=== PATIENT | male | born 1950 | race Hispanic/Latino ===

== ENCOUNTER 2017-07-27 13:16 | Emergency (ER) | payer BC, MEDICARE ==
[2017-07-27] MEDS ORDERED: Adacel (T-DAP) 0.5 ML VIAL ONE (13:49)
--- NOTE | 2017-07-27 14:36 | RAD ---
RIGHT WRIST THREE VIEWS: 07/27/17 HISTORY: 67-year-old male with right wrist pain following an injury, fall coming out of [place]. There is heterogeneous bone demineralization. There appears to be minimal soft tissue swelling. Ther e is a subtle linear lucency noted in the triquetrum bone. I feel this is probably just some trabecu lar irregularity, although if the patient is point tender over this region, the possibility of a ethan rline nondisplaced fracture cannot be excluded. IMPRESSION: Minimal soft tissue swelling with some bone demineralization and some degenerative and osteoarthrosi s changes. Faint linear lucency seen vertically in the triquetrum bone on one view only. I favor thi s to be a vascular groove or some trabecular irregularity and not a fracture, although if the patien t is point tenderness to this region and has persistent or worsening pain, a followup CT or MRI stud y might give some additional information. POS: [facility]
--- NOTE | 2017-07-27 14:57 | CT ---
BRAIN CT WITHOUT IV CONTRAST: 07/27/17 HISTORY: 67-year-old male with ESRD, diabetes mellitus, congestive heart failure, hypertension, fell on this face. There is left frontal soft tissue scalp hematoma. No focal mass or midline shift. No intra or extra- axial hemorrhage. The sinuses and mastoids are clear. IMPRESSION: No acute intracranial process. Left frontal scalp hematoma. Benign arachnoid granuloma changes withi n the occiput. POS: [facility]
--- NOTE | 2017-07-27 14:59 | CT ---
FACIAL BONE CT SCAN WITHOUT IV CONTRAST: 07/27/17 HISTORY: Facial injury following trauma. There is left periorbital and supraorbital and left frontal scalp swelling. No evidence for acute or bital fracture. The zygomatic arches, mandible and face appear intact. IMPRESSION: Prominent left facial periorbital and supraorbital and left frontal soft tissue swelling. No facial bone fracture or dislocation. POS: [facility]
[2017-07-27] MEDS ORDERED: Ketorolac Tromethamine 30 MG/ML VIAL ONE (15:50)
== END 2017-07-27 16:25 | disposition home or self-care (01) ==
LOC: ERS 13:16
DX: S00.03XA Contusion of scalp, initial encounter (principal); S00.81XA Abrasion of other part of head, initial encounter; M25.531 Pain in right wrist; I13.2 Hypertensive heart and chronic kidney disease with heart failure and with stage 5 chronic kidney disease, or end stage renal disease; E11.22 Type 2 diabetes mellitus with diabetic chronic kidney disease; N18.6 End stage renal disease; I50.9 Heart failure, unspecified; Z99.2 Dependence on renal dialysis; Z79.4 Long term (current) use of insulin; Z79.82 Long term (current) use of aspirin; Z79.899 Other long term (current) drug therapy; W01.0XXA Fall on same level from slipping, tripping and stumbling without subsequent striking against object, initial encounter; Y93.01 Activity, walking, marching and hiking; Y92.512 Supermarket, store or market as the place of occurrence of the external cause
CPT/HCPCS: 70450; 70486; 90471; 90715; 96374; J1885

== ENCOUNTER 2017-08-26 09:57 | Observation (INO) | payer MEDICARE, BC ==
--- NOTE | 2017-08-26 11:44 | RAD ---
TWO VIEWS OF THE CHEST: HISTORY: Shortness of breath for months. COMPARISON: 07/19/2016 FINDINGS: Two views of the chest show normal sized cardiomediastinal silhouette. There is no evidence of consol idation, mass, or pleural effusion. The bones are unremarkable. IMPRESSION: No evidence of acute cardiopulmonary disease. POS: [facility]
[2017-08-26 12:56] LABS: #Basophils 0.1 thou/uL (0.0-0.2); #Eosinphils 0.2 thou/uL (0.0-0.7); #Lymphocytes 1.2 thou/uL (1.20-3.40); #Monocytes 0.3 thou/uL (0.11-0.59); #Neutrophils 3.6 thou/uL (1.40-6.50); %Lymphocytes 21.6 % (21.0-51.0); %Monocytes 5.3 % (0.0-10.0); Hematocrit 28.6 % (42.0-52.0); Mean Platelet Volume 7.3 fL (7.4-10.4); Red Blood Cell (RBC) Count 2.87 mill/uL (4.70-6.10); White Blood Cell (WBC) Count 5.3 thou/uL (4.8-10.8)
[2017-08-26 13:19] LABS: ALT (SGPT) 18 U/L (8-55); AST (SGOT) 16 U/L (5-34); Alkaline Phosphatase 116 U/L (40-150); Anion Gap 14 mmol/L (10-20); BUN (Urea Nitrogen) 26 mg/dL (8.4-25.7); Bilirubin, Total 0.8 mg/dL (0.2-1.2); Calc. Creatinine Clearance 0 mL/min (70-130); Calcium 8.2 mg/dL (7.8-10.44); Carbon Dioxide 30 mmol/L (23-31); Chloride 97 mmol/L (98-107); Estimated GFR-MDRD 14; Globulin 3.3 g/dL (2.4-3.5); Lipase 113 U/L (8-78)
[2017-08-26 13:51] LABS: Bilirubin Negative (Negative); Blood, Urine Small (Negative); Glucose, Urine (Dipstick) 250 mg/dL (Negative); Ketone, Urine Negative (Negative); Nitrite Negative (Negative); Protein, Urine (Dipstick) 300 mg/dL (Neg-Trace); Urobilinogen 0.2 mg/dL (0.2-1.0)
[2017-08-26 13:56] LABS: Bacteria/HPF 3+ HPF (None Seen); Hyaline Casts/LPF 0-3 HYALINE CAST LPF (0-3 Hyaline); RBC/HPF 0-3 HPF (0-3); Squamous Epithelial 0-3 HPF (0-3); WBC/HPF 21-50 HPF (0-3)
[2017-08-26 14:03] LABS: Lactic Acid - Sepsis 2.2 mmol/L (0.5-2.2)
[2017-08-26 14:10] LABS: Yeast-All Forms None Seen HPF (None Seen)
[2017-08-26] MEDS ORDERED: HumaLOG 300 UNITS/3 ML VIAL SC PRN (16:30)
[2017-08-26] MEDS ORDERED: Dextrose 50% Abboject 50 ML SYRINGE SLOW IVP PRN (16:30)
[2017-08-26] MEDS ORDERED: Dextrose 5% in Water 1,000 ML IV PRN (16:30)
--- NOTE | 2017-08-26 17:01 | HP ---
PRIMARY CARE PROVIDER: Dr. Gutierrez. HUMAN RESOURCES ASSISTANT MANAGER: Dr. Peguero. Referred to the [facility] by [facility]. HISTORY OF PRESENT ILLNESS: Patient was at hemodialysis this morning, he got lightheaded, started mustafa ving cramps in his legs and his chest, noted to have a low blood pressure of about 80 systolic, was s ent to the emergency room, he complains as he feels weak. PAST MEDICAL HISTORY: End-stage renal disease, on hemodialysis for 2 years; hypertension; diabetes m ellitus, type 2, insulin-dependent; coronary artery disease post PCI in 2011; dyslipidemia. CURRENT MEDICATIONS: Lantus 22 units subcu twice a day, Coreg 25 mg twice a day, amlodipine 10 mg a day, Januvia 100 mg a day, losartan 100 mg a day, Zocor 10 mg a day, aspirin 81 mg a day, terazosin 1 0 mg a day. ALLERGIES: GUAIFENESIN. PAST SURGICAL HISTORY: Radical prostatectomy for cancer in 2013. FAMILY HISTORY: No end-stage renal disease, no diabetes, no coronary artery disease. He has hyperte nsion in 3 brothers. SOCIAL HISTORY: , no tobacco, no alcohol. CODE STATUS: FULL CODE status. at bedside. REVIEW OF SYSTEMS: General: See present illness. No fainting. No headache. No fever or chills. Eyes: No double vision, blurred vision. No flashing lights. Ears, Nose, and Throat: No ear pain o r drainage. No nasal bleeding. No trouble swallowing. Cardiac: He occasionally has chest tightnes s in the morning before hemodialysis. He has occasional orthopnea. He has to sit up to breathe. Oc casional paroxysmal nocturnal dyspnea. Respirations: He has had a dry cough for 2 years. He has be en on multiple medicines, nothing has helped. He has no history of asthma or wheezing. Gastrointest inal: No nausea, vomiting, diarrhea, abdominal pain, or melena. Genitourinary: No hematuria or dys uria. Musculoskeletal: Both bilateral lower extremities swell for the past 3 weeks, some cramping i n his legs. Neurologic: No strokes, seizures, or focal weakness. Psychiatric: No anxiety, depress ion. Skin: Dry skin. No bruises or rash. Heme/Lymph: No tender or swollen lymph nodes in axilla, inguinal, or cervical area. PHYSICAL EXAMINATION: VITAL SIGNS: He is an alert, cooperative, pleasant gentleman. VITAL SIGNS: O2 sat 97%-99% on room air; temperature 98.2-98.4; respirations 87-90; respirations 20- 22; blood pressure 156/61, 142/65, 142/65. EXAMINATION OF HEAD, EYES, EARS, NOSE, AND THROAT: Reveal pupils equal, round, and reactive to light . Extraocular movements are intact. Sclerae white. Tympanic membranes are clear. He has dental ca ronna on oral exam. NECK: No jugular venous distention, adenopathy, or thyromegaly. CHEST: He has coarse rales in the bottom 1/3 of his chest, otherwise clear. HEART: Regular rate and rhythm. First and second heart sounds clear, 2/6 systolic murmur. ABDOMEN: Soft, bowel sounds are normal. There is no hepatosplenomegaly, no mass, no rebound. EXTREMITIES: Reveal no cyanosis or clubbing. He does have 1-2+ edema in his lower legs and feet. SKIN: Warm and dry without bruises or rash. HEME/LYMPH: No tender or swollen lymph nodes in axilla, inguinal, or cervical area. NEUROLOGICAL: Cranial nerves II-XII are intact. Deep tendon reflexes symmetric. Moves all extremit ies. LABORATORY AND X-RAY FINDINGS: 1. EKG: Regular sinus rhythm, complete left bundle branch block, read by myself. 2. Chest x-ray: No cardiomegaly, CHF, or infiltrate, read by me. LABORATORY DATA: Comp metabolic profile, creatinine 4.26, BUN 26, chloride 97, blood sugar 294, BNP 454. Urine shows 21-50 white cells with no leukocyte esterase or nitrites. White count is 5.3 with no left shift, hemoglobin is 9.6, platelet count is 152,000. ADMITTING DIAGNOSES: 1. Dizziness post hemodialysis with low blood pressure, resolved. 2. Hypertension. 3. End-stage renal disease, on hemodialysis. 4. Diabetes mellitus, type 2. 5. Dyslipidemia. 6. Complete left bundle branch block. 7. Episodic chest tightness. 8. Peripheral edema. PLAN: 1. Overnight observation on telemetry. 2. Selected home medicines. 3. Consult Dr. Peguero. 4. D-dimer. 5. Bilateral lower extremity venous Doppler. I have a low index of suspicion for deep vein thrombos is and pulmonary embolus, but we will rule it out as mentioned above.
[2017-08-26] MEDS ORDERED: HYDROcodone/Acetaminophen 7.5/325 mg Tablet PO PRN (18:20)
[2017-08-26] MEDS ORDERED: PROVENTIL INHALER 6.7 G (200 INHALATIONS) INH PRN (18:20)
[2017-08-26] MEDS ORDERED: Acetaminophen 325 MG TAB PO PRN (18:20)
[2017-08-26] MEDS ORDERED: Zolpidem Tartrate 5 MG TAB PO PRN (18:20)
[2017-08-26] MEDS ORDERED: Ondansetron HCl/PF 4 MG/2 ML Vial IVP PRN (18:20)
[2017-08-26 18:25] VITALS: BMI 27.8
[2017-08-26 19:09] LABS: Troponin I 0.021 ng/mL (< 0.028)
[2017-08-26] MEDS: Carvedilol 25 MG TAB PO SCH (20:24)
[2017-08-26] MEDS ORDERED: INSULIN GLARGINE 22 UNIT SC SCH (21:00)
[2017-08-26] MEDS ORDERED: Carvedilol 6.25 MG TAB PO SCH (21:00)
[2017-08-26] MEDS ORDERED: Simvastatin 20 MG TAB PO SCH (21:00)
[2017-08-26] MEDS: Insulin Detemir 100 UNITS/ML 22 UNITS in Pre-Filled Syringe 1 EACH SC SCH (21:05)
[2017-08-26 22:04] LABS: Troponin I 0.026 ng/mL (< 0.028)
--- NOTE | 2017-08-26 23:57 | ULT ---
BILATERAL LOWER EXTREMITY VENOUS DOPPLER ULTRASOUND: Date: 08-26-17 History: Bilateral leg swelling, edema, pain. Technique: Multiple longitudinal and transverse images of the right and left lower extremity venous s ystems are obtained using multihertz linear array transducer. Real-time, color flow, and spectral wav eform doppler analysis performed. FINDINGS: There is no evidence of acute or old clots seen in the right or left common femoral, superficial femo ral, profunda, popliteal, posterior tibial vein, post trifurcations veins, and greater saphenous vein s. IMPRESSION: No evidence of right or left lower extremity deep venous thrombosis. POS: [facility]
[2017-08-27] MEDS ORDERED: cloNIDine 0.1 MG TAB PO PRN (00:27)
[2017-08-27 01:22] LABS: Troponin I 0.026 ng/mL (< 0.028)
[2017-08-27 06:15] LABS: #Eosinphils 0.2 thou/uL (0.0-0.7); #Lymphocytes 1.6 thou/uL (1.20-3.40); #Monocytes 0.4 thou/uL (0.11-0.59); #Neutrophils 2.4 thou/uL (1.40-6.50); %Basophils 0.7 % (0.0-1.0); %Eosinophils 4.6 % (0.0-10.0); %Lymphocytes 34.4 % (21.0-51.0); %Monocytes 8.4 % (0.0-10.0); Hematocrit 27.5 % (42.0-52.0); Mean Platelet Volume 7.3 fL (7.4-10.4); Red Blood Cell (RBC) Count 2.74 mill/uL (4.70-6.10); White Blood Cell (WBC) Count 4.6 thou/uL (4.8-10.8)
[2017-08-27 06:27] LABS: Anion Gap 12 mmol/L (10-20); BUN (Urea Nitrogen) 38 mg/dL (8.4-25.7); Calc. Creatinine Clearance 12 mL/min (70-130); Calcium 9.2 mg/dL (7.8-10.44); Carbon Dioxide 32 mmol/L (23-31); Chloride 100 mmol/L (98-107); Estimated GFR-MDRD 10
[2017-08-27] MEDS ORDERED: FERRIC CITRATE 630 MG PO SCH (08:00)
[2017-08-27] MEDS ORDERED: Epoetin (ESRD) 20,000 UNITS/ML SC SCH (08:15)
[2017-08-27] MEDS ORDERED: Amlodipine 10 MG TAB PO SCH (09:00)
[2017-08-27] MEDS ORDERED: Losartan Potassium 25 MG TAB PO SCH (09:00)
[2017-08-27] MEDS ORDERED: Alogliptin Benzoate 6.25 MG TABLET PO SCH (09:00)
[2017-08-27] MEDS ORDERED: Montelukast Sodium 10 mg Tablet PO SCH ×2 (09:00→21:00)
[2017-08-27] MEDS ORDERED: Calcitriol 0.25 MCG CAP PO SCH (09:00)
--- NOTE | 2017-08-27 10:03 | CON ---
DATE OF CONSULTATION: 08/27/2017 HISTORY OF PRESENT ILLNESS: Mr. Bauer is a 67-year-old white male with known history of ESRD, ty pe 2 diabetes mellitus, and admitted for complaints of shortness of breath. He was seen in dialysis yesterday and he was several pounds above his estimated dry weight. He was supposed to have an extra dialysis in the outpatient, but he was admitted due to complaints of generalized problems with chest pressure. His blood pressure at that time was also on the low side. This morning, the blood pressu re is much improved. His shortness of breath is actually better this morning. However, this patient has a history of several pounds of weight about his dry weight and for that reason we will do an ext ra hemodialysis and obtain about 2 liter fluid removal. He tells me he was also diagnosed with a UTI. REVIEW OF SYSTEMS: Positive for occasional shortness of breath. Positive for chronic cough. No bernadine sea, no vomiting, no syncopal episode. Positive for leg cramps. Positive for chest pressure. No he adache, no fever or chills. No gross hematuria, no hematochezia, no melena, no hematemesis, no abdom inal pain. Appetite and energy level is fair. No headache, no diplopia. HOME MEDICATIONS: Lantus 22 units subcu twice a day, Coreg 25 mg b.i.d., amlodipine 10 mg tab once d aily, Januvia 100 mg once a day, losartan 100 mg per day, Zocor 10 mg at bedtime, aspirin 81 mg daily , terazosin 10 mg a day. PAST MEDICAL HISTORY: 1. Prostate cancer in remission. 2. End-stage renal disease secondary to presumed diabetic nephropathy. 3. Hyperlipidemia. 4. History of erectile dysfunction. 5. Coronary artery disease. 6. History of complex renal cyst. 7. Hypertension. PAST SURGICAL HISTORY: 1. Status post prostate biopsy. 2. Status post radical prostatectomy/status post radiation of the prostate cancer. 3. Status post cardiac catheterization. 4. Status post coronary artery stent placement. 5. Status post tonsillectomy. 6. Status post appendectomy. 7. Status post colonoscopy. 8. Status post cuffed hemodialysis catheter placement. 9. Status post AV fistula placement. SOCIAL HISTORY: The patient lives in [place], , 2 children, 2 years of college. Currently, no history of smoking. 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 No alcoho l. No IV drug abuse. Status post blood transfusion. ALLERGIES: None. TRAUMA: None. IMMUNIZATIONS: Up to date. HOSPITALIZATIONS: Please see past medical history. FAMILY HISTORY: No family history of ESRD. PHYSICAL EXAMINATION: VITAL SIGNS: Blood pressure is noted at 184/79, heart rate 83, respiratory rate 16, pulse ox 98%, te mperature 98.4. GENERAL: Noted to be awake, alert, comfortable, not in distress. SKIN: Adequate turgor. HEENT: Pinkish conjunctivae, anicteric sclerae. NECK: No neck mass, no carotid bruits, no JVD. CHEST: No deformities. LUNGS: Decreased breath sounds. HEART: Normal sinus rhythm. No murmur, no gallops or rubs. ABDOMEN: Globular, soft, nontender. No masses. EXTREMITIES: No edema, no deformities. LABORATORY: 08/27/2017 - White count 4.6, hemoglobin 9.3, hematocrit 27.5, sodium 140, potassium 3.9 , chloride 100, carbon dioxide 32, BUN 38, creatinine 5.92, glucose 134, calcium 9.2. Chest x-ray; no acute cardiothoracic findings. ASSESSMENT AND PLAN: 1. Chronic cough - the patient has been evaluated by Pulmonary in the past. There was no overt evid ence of chronic obstructive pulmonary disease at that time. Continue supportive care. Please note t hat the last ejection fraction was normal. Supportive care. We will max out fluid removal with this patient. 2. End-stage renal disease. I have rescheduled him for a short 2 hour hemodialysis today since the patient is several pounds above his estimated dry weight. We will attempt to remove 2 liters of flui d with a 2-hour dialysis today. 3. Type 2 diabetes mellitus. I would suggest once he is discharged that we decrease the Januvia dos e from 100 to 50 mg tab once a day. 4. Anemia. We will give Epogen 7500 units subcu every week. I agree with current management.
[2017-08-27] MEDS: Carvedilol 25 MG TAB PO SCH (12:41)
--- NOTE | 2017-08-27 13:27 | EKG ---
Test Reason : SOB Blood Pressure : / mmHG Vent. Rate : 088 BPM Atrial Rate : 088 BPM P-R Int : 144 ms QRS Dur : 134 ms QT Int : 428 ms P-R-T Axes : 038 -10 087 degrees QTc Int : 517 ms Normal sinus rhythm Left bundle branch block Abnormal ECG Confirmed by YASMIN DALE ([id number]), dictionary editor JERSEY ROBLES ([id number]) on 08/27/2017 1:27:10 PM Referred By: Confirmed By:YASMIN DALE
[2017-08-27] MEDS: Insulin Detemir 100 UNITS/ML 22 UNITS in Pre-Filled Syringe 1 EACH SC SCH (13:55)
--- NOTE | 2017-08-27 14:58 | NM ---
VENTILATION PERFUSION LUNG SCAN: HISTORY: Cough. Shortness of breath. COMPARISON: Correlation is made to chest film of 08/26/17 which showed mild cardiomegaly and mild vascular engorg ement. FINDINGS: Ventilation scan performed with administration of 9 mCi of inhaled Xenon gas. No ventilatory defect. Mild symmetric air trapping. Perfusion scan performed with administration of 5.5 mCi of Technetium labeled MAA IV. Lung marshall im aged in 8 projections. No evidence of significant pulmonary perfusion defect. No evidence of pulmonary embolus. IMPRESSION: No evidence of pulmonary embolus. POS: [facility]
[2017-08-27 15:40] VITALS: BP 173/72; TEMP 98.2
--- NOTE | 2017-08-27 15:52 | DIS ---
DATE OF ADMISSION: 08/26/2017 DATE OF DISCHARGE: 08/27/2017 DISPOSITION: Discharged home. PRIMARY CARE PROVIDER: Luis Gutierrez M.D. FINAL DIAGNOSES: Transient dizziness, transient hypotension with hemodialysis, end-stage renal disea se on hemodialysis, hypertension, diabetes mellitus type 2, coronary artery disease, dyslipidemia. CURRENT MEDICATIONS: Lantus 22 units subq twice a day, Coreg 25 mg twice a day, amlodipine 10 mg a d ay, Januvia 100 mg a day, losartan 100 mg a day, Zocor 10 mg a day, aspirin 81 mg a day, terazosin 10 mg a day. ALLERGIES: To GUAIFENESIN. CODE STATUS: FULL. PENDING AT THE TIME OF DISCHARGE: Nothing. HOSPITAL COURSE: The patient had an episode of dizziness, hypotension at the hemodialysis who was br ought to the emergency room. He was referred to the [facility] for observation. His electrocardiogram, normal sinus rhythm, complete left bundle branch block. Chest x-ray: No evidence of any acute cardiopulmonary disease. LABORATORY: White count 5.5, hemoglobin 9.6, platelet count 152,000. D-dimer elevated 1.28, creatin ine 4.26. Electrolytes balanced. Blood sugar 294, BNP 454, troponin normal x3. Venous duplex Doppl er of the legs revealed no clot. VQ scan revealed no abnormality, discussed with the patient, his vi davy signs are stable. His cardiorespiratory exam is clear. He is being discharged to keep his , Saturday, Saturday hemodialysis appointments. He has been advised to see his primary care doctor diana mccullough a week for followup.
[2017-08-27] MEDS ORDERED: INSULIN GLARGINE HUM REC ANLOG 22 UNIT SQ SCH (21:00)
[2017-08-27] MEDS ORDERED: Terazosin HCl 5 MG CAP PO SCH (21:00)
== END 2017-08-27 16:08 | disposition home or self-care (01) ==
LOC: ERS 09:57 → ERHOLD 16:00 → 2SW 18:13
PROVIDERS: ADMIT Internal Medicine; ATTEND Internal Medicine
DX: R42 Dizziness and giddiness (principal); I95.3 Hypotension of hemodialysis; E11.22 Type 2 diabetes mellitus with diabetic chronic kidney disease; I12.0 Hypertensive chronic kidney disease with stage 5 chronic kidney disease or end stage renal disease; N18.6 End stage renal disease; I25.10 Atherosclerotic heart disease of native coronary artery without angina pectoris; E78.5 Hyperlipidemia, unspecified; R60.0 Localized edema; I44.7 Left bundle-branch block, unspecified; R07.89 Other chest pain; N39.0 Urinary tract infection, site not specified; R05 Cough; D63.1 Anemia in chronic kidney disease; Z79.4 Long term (current) use of insulin; Z79.899 Other long term (current) drug therapy; Z99.2 Dependence on renal dialysis; Z88.8 Allergy status to other drugs, medicaments and biological substances; Z95.818 Presence of other cardiac implants and grafts; Z90.79 Acquired absence of other genital organ(s); Z90.89 Acquired absence of other organs; Z90.49 Acquired absence of other specified parts of digestive tract; Z98.890 Other specified postprocedural states; Z92.3 Personal history of irradiation
CPT/HCPCS: 71020; 78582; 80048; 80053; 82962 ×2; 83605; 83690; 83880; 84484 ×3; 85025 ×2; 85379; 87040; 87086; 87340; 93005; 93970; 96374; 99285; A9540; A9558; G0378; Q4081; 36415; 36416; 81003; 81015; 90935; A4216; G0257; J0696; J1815

== ENCOUNTER 2018-07-25 22:39 | Inpatient (IN) | payer MEDICARE, OTHER ==
[2018-07-25] MEDS ORDERED: Nitroglycerin 50 MG/250 ML BOT 250 ML ONE (22:50)
[2018-07-25] MEDS ORDERED: Nitroglycerin 2% Ointment 1 INCH/1 GM Packet ONE ×2 (22:54→22:56)
[2018-07-25 23:12] LABS: Hemoglobin 10.6 g/dL (14.0-18.0); Mean Corpuscular HGB CONC 33.1 g/dL (32.0-36.0); Mean Corpuscular Hemoglobin 34.7 pg (27.0-31.0); Mean Platelet Volume 7.9 fL (7.4-10.4); Platelet Count 250 thou/uL (130-400); RBC Distribution Width 12.7 % (11.5-14.5); Red Blood Cell (RBC) Count 3.07 mill/uL (4.70-6.10); White Blood Cell (WBC) Count 10.1 thou/uL (4.8-10.8)
[2018-07-25 23:22] LABS: Analyzer IN Cardio ER; Base Excess (BEa) -3.4 mEq/L (-2.0 to +3.0); CO2 Tension 35.4 mmHg (35.0-45.0); Calcium, Ionized 1.04 mmol/L (1.12-1.30); Carboxyhemoglobin (COHb) 0.5 gm% (0.0-3.0); Hemoglobin (Hb) 10.4 g/dL (14.0-18.0); Potassium - ABG Lab 4.24 mmol/L (3.70-5.30); pH, Arterial 7.39 (7.35-7.45)
[2018-07-25 23:25] LABS: Puncture Site R RADIAL
[2018-07-25 23:29] LABS: #Basophils 0.1 thou/uL (0.0-0.2); #Eosinphils 0.1 thou/uL (0.0-0.7); #Lymphocytes 1.9 thou/uL (1.20-3.40); #Monocytes 0.5 thou/uL (0.11-0.59); #Neutrophils 7.5 thou/uL (1.40-6.50); %Basophils 0.6 % (0.0-1.0); %Eosinophils 0.8 % (0.0-10.0); %Lymphocytes 19.1 % (21.0-51.0); %Monocytes 5.1 % (0.0-10.0); %Neutrophils 74.4 % (42.0-75.0); PLT Morphology Comment Appears Adequate
[2018-07-25 23:33] LABS: ALT (SGPT) 13 U/L (8-55); AST (SGOT) 12 U/L (5-34); Albumin 3.8 g/dL (3.4-4.8); Alkaline Phosphatase 227 U/L (40-150); Anion Gap 24 mmol/L (10-20); BUN (Urea Nitrogen) 31 mg/dL (8.4-25.7); Bilirubin, Total 1.2 mg/dL (0.2-1.2); Calc. Creatinine Clearance 0 mL/min (70-130); Calcium 8.4 mg/dL (7.8-10.44); Carbon Dioxide 21 mmol/L (23-31); Chloride 90 mmol/L (98-107); Estimated GFR-MDRD 11; Globulin 3.3 g/dL (2.4-3.5); Lipase 46 U/L (8-78); Magnesium 1.9 mg/dL (1.6-2.6); Potassium 4.2 mmol/L (3.5-5.1); Protein, Total 7.1 g/dL (5.8-8.1); Sodium 131 mmol/L (136-145)
[2018-07-25 23:36] LABS: CKMB 1.6 ng/mL (0-6.6); Troponin I 0.062 ng/mL (< 0.028)
[2018-07-25 23:43] LABS: Glucose 786 mg/dL (80-115)
--- NOTE | 2018-07-25 23:46 | RAD ---
CHEST ONE VIEW: 07/25/18 HISTORY: 68-year-old male with history of shortness of breath. Monitor leads overlie the chest. Extensive alveolar nodular parenchymal changes primarily in a perihi lar distribution involving the majority of both lungs. Given the fairly symmetric distribution, I wou ld favor this to be bilateral pulmonary edema, although bilateral pneumonia could have a similar appe arance. These findings are new when compared to a 08/26/17 study. No significant pleural effusion. He art size is within normal limits. IMPRESSION: Extensive alveolar parenchymal changes primarily in the perihilar distribution. I favor this to be bi lateral pulmonary edema, although bilateral pneumonia could have a similar radiographic appearance. C orrelate clinically. POS: [facility]
[2018-07-26] MEDS ORDERED: Insulin Regular 300 UNITS/3 ML VIAL ONE (00:41)
[2018-07-26] MEDS ORDERED: Insulin Regular 100 units/100 ml in NS IVPB SCH (01:00)
[2018-07-26 01:32] LABS: Bilirubin Negative (Negative); Blood, Urine Moderate (Negative); Clarity CLEAR (Clear); Glucose, Urine (Dipstick) >=1000 mg/dL (Negative); Leukocyte Negative (Negative); Nitrite Negative (Negative); Protein, Urine (Dipstick) 300 mg/dL (Neg-Trace); Specific Gravity, Urine 1.021 (1.002-1.036); Urobilinogen 0.2 mg/dL (0.2-1.0)
[2018-07-26 01:33] LABS: Bacteria/HPF None Seen HPF (None Seen); Hyaline Casts/LPF 0-3 HYALINE CAST LPF (0-3 Hyaline); Pathc Cast-AUWi Flag 0.29 (0-2.49); Squamous Epithelial 0-3 HPF (0-3); WBC/HPF 0-3 HPF (0-3)
[2018-07-26] MEDS ORDERED: Ondansetron PF 4 MG/2 ML Vial IVP PRN (01:47)
[2018-07-26] MEDS ORDERED: Acetaminophen 650 MG Suppository PR PRN (01:47)
[2018-07-26] MEDS ORDERED: Acetaminophen 325 MG TAB PO PRN (01:47)
[2018-07-26] MEDS ORDERED: CCU Electrolyte Replacement 1 EACH IVPB ONE (01:47)
--- NOTE | 2018-07-26 02:29 | HP ---
PRIMARY CARE PROVIDER: Luis Gutierrez M.D. CHIEF COMPLAINT: Respiratory distress. HISTORY OF PRESENT ILLNESS: Mr. Bauer is a pleasant 68-year-old gentleman who was seen at [facility] on 07/26/2018. He has end-stage renal disease and undergoes dialysis Saturday, Saturday, and Saturday. He underwent di alysis yesterday. Following dialysis, he developed sudden shortness of breath. He denies having any chest pain. He denies any nausea or vomiting. His oxygen saturation was reportedly 56% on room air . He denies any fevers. His reports that he has a chronic cough that is nonproductive. She also reports that he has been lethargic for several weeks. The patient himself reports that he does not k now where he is. He is able to answer most of the questions. He was also found to be hyperglycemic and hyperosmolar and has been started on intravenous insulin. REVIEW OF SYSTEMS: All other systems reviewed and found to be negative. PAST MEDICAL HISTORY: Prostate cancer; end-stage renal disease, on dialysis Saturday, Saturday, and by Dr. Peguero; congestive heart failure; diabetes mellitus; and hypertension. PAST SURGICAL HISTORY: Prostatectomy, appendectomy, dialysis shunt to left upper extremity, tonsille ctomy, PCI with cardiac stents x2. SOCIAL HISTORY: No history of tobacco use, alcohol use or recreational drug use. FAMILY HISTORY: No family history of coronary artery disease. CODE STATUS: I discussed his code status. He is FULL CODE, according to his family. ALLERGIES: GUAIFENESIN. CURRENT MEDICATIONS: Lantus insulin 22 units subcutaneously 2 times a day, carvedilol 25 mg 2 times a day, amlodipine 10 mg daily, losartan 100 mg daily, simvastatin 10 mg daily, aspirin 81 mg daily, t erazosin 10 mg daily, and Sorbide 40 mg daily. PHYSICAL EXAMINATION: GENERAL: Mr. Bauer is sleepy, but arousable. VITAL SIGNS: Blood pressure is 130/68, pulse 94, respiratory rate 29, and oxygen saturation 100% on BiPAP. He is afebrile. EYES: No scleral icterus. No conjunctival pallor. ENT: Moist mucosal membranes. No oropharyngeal erythema or exudate. NECK: Supple, nontender. Trachea is midline. RESPIRATORY: Accessory muscles of breathing are active. Chest wall movements are symmetric bilatera lly. He has bilateral crackles. CARDIOVASCULAR: S1 and S2 are heard, regular. Peripheral pulses palpable. No carotid bruit, no per icardial rub. ABDOMEN: Distended, nontender, bowel sounds heard, no hepatomegaly, no splenomegaly. NEUROLOGIC: Cranial nerves II-XII intact, deep tendon reflexes 2+. MUSCULOSKELETAL: Power is 5/5 in all 4 extremities. He has bilateral lower extremity edema. SKIN: No rashes or subcutaneous nodules. LYMPHATIC: No cervical lymphadenopathy. PSYCHIATRIC: The patient sleepy, but arousable, has a normal mood, oriented to person, but not to pl krzysztof or time. DATABASE: Mr. Bauer's labs and investigations were reviewed. I reviewed his electrocardiogram, which shows sinus tachycardia, left bundle-branch block, also seen on old electrocardiograms. I also reviewed his chest x-ray, which shows bilateral pulmonary edema. He has a normal white count, macro cytic anemia with hemoglobin 10.6, normal platelet count, decreased sodium of 131, elevated blood ure a nitrogen of 31, elevated creatinine of 5.19, elevated glucose of 786, elevated serum osmolality of 325, elevated alkaline phosphatase of 227, otherwise normal liver profile, normal lipase, troponin I indeterminate at 0.062 and BNP elevated at 1105. Urinalysis is positive for protein, glucose and blo od. Arterial blood gases show pH 7.39, pCO2 35.4, and pO2 56. ASSESSMENT AND PLAN: Mr. Bauer is a pleasant 68-year-old gentleman who was seen at [facility] on 07/26/2018. His problem list includes: 1. Respiratory distress. Mr. Bauer is presenting with respiratory distress secondary to flash p ulmonary edema. He will be admitted to the hospital for further management. He is on BiPAP for acut e hypoxic respiratory failure, which I will continue. He is being admitted to Critical Care Unit. 2. Acute hypoxic respiratory failure: This is secondary to volume overload. The patient will have hemodialysis per Nephrology Service. The patient does not appear to have pneumonia at this time. Wh ite count is normal and he is afebrile. 3. Hyperosmolar hyperglycemic state: The patient will be treated with intravenous insulin. We will recheck his electrolytes. Given his volume overload state, we will not give him additional fluids a t this time unless needed. 4. End-stage renal disease, on dialysis. Nephrology service consulted for hemodialysis. 5. Hypertension: We will monitor vital signs and titrate antihypertensives as needed. 6. Congestive heart failure. Appears to be stable, the patient's presentation appears to be more re lated to volume overload than congestive heart failure exacerbation. Many thanks for allowing me to participate in your patient's care. Please feel free to contact me wi th any questions or concerns. LEVEL OF RISK: High. LEVEL OF COMPLEXITY: High.
[2018-07-26 02:53] VITALS: BMI 28.3
[2018-07-26] MEDS ORDERED: Nitroglycerin 50 MG/250 ML BOT 250 ML IVPB SCH (03:45)
[2018-07-26 04:26] LABS: #Lymphocytes 1.1 thou/uL (1.20-3.40); #Monocytes 0.4 thou/uL (0.11-0.59); #Neutrophils 5.6 thou/uL (1.40-6.50); %Basophils 0.3 % (0.0-1.0); %Eosinophils 0.1 % (0.0-10.0); %Lymphocytes 15.7 % (21.0-51.0); %Monocytes 6.1 % (0.0-10.0); %Neutrophils 77.7 % (42.0-75.0); Hemoglobin 8.7 g/dL (14.0-18.0); Mean Corpuscular HGB CONC 35.1 g/dL (32.0-36.0); Mean Corpuscular Hemoglobin 34.8 pg (27.0-31.0); Mean Platelet Volume 7.4 fL (7.4-10.4); Platelet Count 215 thou/uL (130-400); RBC Distribution Width 12.7 % (11.5-14.5); Red Blood Cell (RBC) Count 2.49 mill/uL (4.70-6.10); White Blood Cell (WBC) Count 7.2 thou/uL (4.8-10.8)
[2018-07-26 04:39] LABS: Anion Gap 13 mmol/L (10-20); BUN (Urea Nitrogen) 35 mg/dL (8.4-25.7); Calc. Creatinine Clearance 14 mL/min (70-130); Calcium 8.7 mg/dL (7.8-10.44); Carbon Dioxide 30 mmol/L (23-31); Chloride 93 mmol/L (98-107); Estimated GFR-MDRD 11; Potassium 3.7 mmol/L (3.5-5.1); Sodium 132 mmol/L (136-145)
[2018-07-26 04:43] LABS: Glucose 575 mg/dL (80-115)
[2018-07-26] MEDS ORDERED: Dextrose 50% Abboject 50 ML SYRINGE SLOW IVP PRN (07:52)
[2018-07-26] MEDS ORDERED: Dextrose 5% in Water 1,000 ML IV PRN (07:52)
[2018-07-26] MEDS ORDERED: Labetalol HCl 100 MG/20 ML VIAL SLOW IVP PRN (08:07)
[2018-07-26] MEDS ORDERED: hydrALAZINE 20 MG/ML VIAL SLOW IVP PRN (08:07)
[2018-07-26] MEDS ORDERED: Nitroglycerin 2% Ointment 1 INCH/1 GM Packet TOP PRN (08:09)
[2018-07-26] MEDS: Amlodipine 5 MG TAB PO SCH ×2 (08:22→20:35)
[2018-07-26] MEDS: Carvedilol 25 MG TAB PO SCH ×2 (08:22→20:35)
[2018-07-26] MEDS: Losartan 25 MG TAB PO SCH (08:22)
[2018-07-26] MEDS ORDERED: Heparin 5,000 UNITS/ML VIAL SC SCH (09:00)
[2018-07-26] MEDS ORDERED: Insulin Glargine 10 UNITS in Pre-Filled Syringe 1 EACH SC SCH ×2 (09:00→21:00)
[2018-07-26] MEDS ORDERED: Epoetin (ESRD) 20,000 UNITS/ML SC SCH (09:45)
--- NOTE | 2018-07-26 09:54 | CON ---
DATE OF CONSULTATION: 07/26/2018 SERVICE: Renal Medicine. HISTORY OF PRESENT ILLNESS: Mr. Bauer is a 68-year-old male with known history of end-s tage renal disease - on maintenance hemodialysis Saturday, Saturday, and Saturday, and was admitted for shortness of breath. He was found to have congestive heart failure. In addition, the patient was no nicolle to have a severely elevated blood sugar. He had a hyperglycemic, hyperosmolar, nonketotic diabet es mellitus on admission. We were consulted for emergent hemodialysis. The patient underwent a 2-ho ur hemodialysis with fluid removal. This morning, he is feeling better with the shortness of breath. REVIEW OF SYSTEMS: Positive for shortness of breath. Positive for generalized malaise. No nausea, no vomiting, no fever or chills, no productive cough. Occasional joint pains. No hematochezia, no m helena, no hematemesis, no abdominal pain, no new skin rash, no sore throat, no diplopia, no dysuria. MEDICATIONS: The patient is currently on the following medicine. Tylenol 650 mg q.4. hours p.r.n., Norvasc 5 mg p.o. b.i.d., aspirin 81 mg once a day, Coreg 25 mg p.o. b.i.d., heparin 5000 units subcu t.i.d. He is on insulin Glargine 10 units subcutaneous b.i.d., Humulin R sliding scale, Isordil 20 mg p.o. b.i.d., losartan 100 mg p.o. daily, labetalol p.r.n., Zofran 4 mg at bedtime, Zocor 10 mg at bedtime, Hytrin 10 mg at bedtime. PAST MEDICAL HISTORY: 1. ESRD from diabetic nephropathy. 2. Type 2 diabetes mellitus. 3. Hyperlipidemia. 4. Prostate cancer in remission. 5. Erectile dysfunction. 6. Coronary artery disease. 7. History of complex renal cyst. 8. Hypertension. PAST SURGICAL HISTORY: 1. Status post prostate biopsy. 2. Status post radical prostatectomy/status post-radiation of the prostate cancer. 3. Status post cardiac catheterization. 4. Status post coronary artery stent placement. 5. Status post tonsillectomy. 6. Status post appendectomy. 7. Status post colonoscopy. 8. Status post cuffed hemodialysis catheter placement. 9. Status post AV fistula placement. 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 No alcohol, no IV drug abuse. Status post blood transfusion. , lives in [place]. Two children. Education: 2 years college. Currently, the patient is retired. ALLERGIES: None. TRAUMA: None. IMMUNIZATIONS: Up-to-date. HOSPITALIZATIONS: Please see past medical history. FAMILY HISTORY: No family history of ESRD. PHYSICAL EXAMINATION: VITAL SIGNS: Blood pressure is noted at 148/61 with a heart rate of 81, respiratory rate 23, pulse o x is 100%. GENERAL EXAM: Noted to be awake, alert, comfortable, not in distress. SKIN: Adequate turgor. HEENT: He has slightly pale conjunctivae, anicteric sclerae. NECK: No neck mass, no carotid bruits, no JVD. CHEST: No deformities. LUNGS: Clear breath sounds, no wheezing, no crackles. HEART: Normal sinus rhythm. No murmur, no gallops, no rubs. ABDOMEN: Globular, soft, nontender, no masses. EXTREMITIES: No edema, no deformities. NEUROLOGICAL EXAM: Awake and oriented to 3 spheres. Moving all extremities. No tremors. No asteri xis. No ataxia. LABORATORY DATA: 07/26/2018, white count 7.2, hemoglobin 8.7. Sodium 132, potassium 3.7, chloride 9 3, carbon dioxide 30, BUN 35, creatinine 5.43, glucose 575, calcium 8.7. 07/26/2018, glucose is 150, CK-MB 1.6. Chest x-ray of 07/25/2018 shows bilateral pulmonary edema. ASSESSMENT AND PLAN: 1. Congestive heart failure - much improved with dialysis. Several liters of fluid were removed. M y plan is to reevaluate this patient again, if he will need dialysis for fluid removal in a.m. 2. End-stage renal disease, stable. Tolerating current hemodialysis regimen. He is on a Saturday, , Saturday dialysis regimen. I reviewed the last KT/V and this is suggestive that he is adequat christiane dialyzed with the current dialysis regimen. 3. Anemia. Resume Epogen 7500 units subcutaneously every week. 4. Complex cyst - noted a year ago. We will repeat renal ultrasound. 5. Prostate cancer - in remission. He follows up with his urologist. 6. Elevated blood sugar, resolved with insulin regimen. Suggest we also do a cardiac echo on this patient due to the recent congestive heart failure. He is reportedly dialyzed with adequate fluid removal.
[2018-07-26] MEDS: Isosorbide Dinitrate 20 MG TAB PO SCH ×2 (10:07→20:35)
[2018-07-26] MEDS: Insulin Regular 300 UNITS/3 ML VIAL SC PRN ×3 (12:08→20:38)
--- NOTE | 2018-07-26 12:22 | CON ---
DATE OF CONSULTATION: 07/26/2018 SERVICE: Pulmonary Medicine. REASON FOR CONSULTATION: Respiratory failure. HISTORY OF PRESENT ILLNESS: Patient is a 68-year-old male with past medical history significant for end-stage renal disease. He was in his usual state of health when he started having abrupt onset of increasing shortness of breath. This was associated with extremely elevated blood pressure. He presented to the emergency department with a cough. Ultimately, he was placed on BiPAP. He was tucked in the ICU and his blood pressure control was achieved with nitroglycerin drip. This morning, he had dialysis and a significant amount of fluid was removed. After this, he was off of his blood pressure drips. He has been up walking with the walking program today. He is on 2 liters nasal cannula and indicates he is not having any significant distress from his breathing. PAST MEDICAL HISTORY: 1. End-stage renal disease. 2. Prostate cancer. 3. Chronic systolic and diastolic heart failure 4. Type 2 diabetes mellitus. 5. Hypertension. PAST SURGICAL HISTORY: 1. Prostatectomy. 2. Appendectomy. 3. Dialysis shunt placement. 4. Tonsillectomy. 5. Percutaneous coronary intervention with a stent x2. SOCIAL HISTORY: Negative for alcohol, tobacco, or illicit drug use. He has no exposure to chemicals, dust, or asbestos. FAMILY HISTORY: Noncontributory. ALLERGIES: GUAIFENESIN. MEDICATIONS: List of his inpatient medications were reviewed. No specific updates were made at this time. REVIEW OF SYSTEMS: General, head, ears, eyes, nose, throat, cardiovascular, respiratory, GI, , musculoskeletal, neurologic, and skin is negative except as mentioned in the HPI. PHYSICAL EXAMINATION: VITAL SIGNS: Afebrile with a T-max of 99.1, pulse 77, blood pressure 142/63 off drips, respirations 16, and saturation 99% on 3 liters nasal cannula. GENERAL: The patient is awake, alert, in no apparent distress. LUNGS: Crackles are present dependently. No prolonged expiratory phase or wheezing is otherwise appreciated. HEART: Normal rate, regular. ABDOMEN: Soft, nontender, nondistended. Bowel sounds are positive. MUSCULOSKELETAL: No cyanosis or clubbing. There is no pitting in the bilateral lower extremities. NEUROLOGIC: Grossly nonfocal. LABORATORY DATA: WBC 7.2, hemoglobin 8.7, platelets 215,000. PH 7.39, pCO2 of 35, pO2 of 56 on BiPAP at that time. Creatinine 5.43. BUN 35. Basic metabolic profile is, otherwise, unremarkable. Blood sugar ranges from 122- 524. Prior function studies were essentially unremarkable. BNP 1100, which is a historic high. Troponin 0.062. IMAGING: Chest x-ray demonstrates bilateral pleuroparenchymal opacifications and likely blunting of the bilateral costophrenic angles suggestive of small bilateral pleural effusions and volume overload. Cephalization makes the infiltrate favor pulmonary edema. There is a widened carinal angle suggestive of left atrial enlargement and a generous cardiac silhouette. ASSESSMENT: 1. Acute hypoxic respiratory failure. 2. Hypertensive emergency. 3. End-stage renal disease. 4. Acute on chronic diastolic heart failure. DISCUSSION AND PLAN: The patient can be transitioned out of the ICU to the telemetry unit. Pulmonary Critical Care will continue to follow for an additional 24 hours. We will continue our mobilization efforts through time. Blood pressure medicines have been resumed. Agree with addition of hydralazine , but this was primarily a volume mediated event. 70 minutes have been devoted to this patient in various activities. I personally reviewed all imaging studies and laboratory data noted within this document. For fifty percent of this time, I was interacting with the patient at the bedside or coordinating care with the care team. For the remainder of the time I was immediately available to the patient in the hospital unit. PETE
--- NOTE | 2018-07-26 12:48 | ULT ---
BILATERAL RENAL ULTRASOUND: Date: 07/26/18 PROVIDED CLINICAL HISTORY: Renal cyst. FINDINGS: Right kidney measures about 8.5 x 3.8 x 3.7 cm and demonstrates no evidence for hydronephrosis or mas s. Left kidney measures about 8.4 x 5.0 x 4.6 cm and demonstrates no evidence for hydronephrosis or jessica d mass. There is a simple appearing cyst involving the left kidney measuring about 2.1 cm maximally. The renal parenchyma is echogenic bilaterally. Bilateral pleural effusions are seen. The bladder is d ecompressed by Montgomery catheter and not evaluated. IMPRESSION: 1. Findings suggesting medical renal disease. 2. Simple appearing left renal cyst. 3. Bilateral pleural effusions. POS: [facility]
[2018-07-26] MEDS ORDERED: cloNIDine 0.1 MG TAB PO PRN ×2 (18:42→19:41)
[2018-07-26] MEDS ORDERED: cloNIDine 0.1 MG TAB PO SCH (18:45)
[2018-07-26] MEDS: Heparin 5,000 UNITS/ML VIAL SC SCH (20:34)
[2018-07-26] MEDS: Terazosin HCl 5 MG CAP PO SCH (20:35)
[2018-07-26] MEDS: Simvastatin 5 MG TAB PO SCH (20:35)
[2018-07-26] MEDS: Benzonatate 100 MG CAP PO PRN (20:45)
[2018-07-26] MEDS: Cepastat Lozenges 1 LOZ PO PRN ×2 (20:45→23:19)
[2018-07-26] MEDS ORDERED: Insulin Glargine 15 UNITS in Pre-Filled Syringe SC SCH (21:00)
[2018-07-26] MEDS: hydrALAZINE 25 MG TAB PO SCH (23:13)
[2018-07-27 05:18] LABS: #Eosinphils 0.3 thou/uL (0.0-0.7); #Lymphocytes 1.7 thou/uL (1.20-3.40); #Monocytes 0.4 thou/uL (0.11-0.59); #Neutrophils 3.6 thou/uL (1.40-6.50); %Basophils 0.7 % (0.0-1.0); %Eosinophils 4.4 % (0.0-10.0); %Lymphocytes 28.3 % (21.0-51.0); %Monocytes 7.1 % (0.0-10.0); %Neutrophils 59.5 % (42.0-75.0); Mean Corpuscular HGB CONC 34.3 g/dL (32.0-36.0); Mean Corpuscular Hemoglobin 34.7 pg (27.0-31.0); Mean Platelet Volume 7.4 fL (7.4-10.4); Platelet Count 211 thou/uL (130-400); White Blood Cell (WBC) Count 6.1 thou/uL (4.8-10.8)
[2018-07-27 05:38] LABS: Anion Gap 12 mmol/L (10-20); BUN (Urea Nitrogen) 40 mg/dL (8.4-25.7); Calc. Creatinine Clearance 13 mL/min (70-130); Calcium 8.9 mg/dL (7.8-10.44); Carbon Dioxide 32 mmol/L (23-31); Chloride 97 mmol/L (98-107); Estimated GFR-MDRD 10; Glucose 147 mg/dL (80-115); Potassium 3.5 mmol/L (3.5-5.1); Sodium 137 mmol/L (136-145)
[2018-07-27] MEDS: hydrALAZINE 25 MG TAB PO SCH ×3 (05:52→21:27)
[2018-07-27] MEDS: Budesonide 0.5 MG/2 ML NEB INH SCH ×2 (06:16→20:43)
[2018-07-27] MEDS: Cepastat Lozenges 1 LOZ PO PRN ×4 (06:20→23:35)
[2018-07-27] MEDS ORDERED: Insulin Glargine 15 UNITS in Pre-Filled Syringe SC SCH (09:00)
[2018-07-27] MEDS ORDERED: Meclizine HCl 25 MG TAB PO PRN (09:50)
[2018-07-27] MEDS ORDERED: Loratadine 10 MG TAB PO SCH (10:00)
--- NOTE | 2018-07-27 10:12 | PRG ---
DATE OF SERVICE: 07/27/2018 SUBJECTIVE: Mr. Bauer is a 68-year-old male with ESRD and was admitted for congestive h eart failure. He underwent emergent dialysis. This morning, there is a slight improvement with shor tness of breath. We removed several liters with the dialysis on his admission. He denies any chest pain. A cardiac echo was done, which showed that overall left ventricular function is depressed. No complaints of chest pain this morning. OBJECTIVE: VITAL SIGNS: Blood pressure is noted to be at 152/72 with a heart rate of 70. His pulse ox was 95% on 2 liters and temperature 98.4. GENERAL EXAM: He is noted to be awake, alert, supine, comfortable, not in overt distress. SKIN: Adequate turgor. HEENT: He has slightly pale conjunctivae, anicteric sclerae. NECK: No neck mass, no carotid bruits, no JVD. CHEST: No deformities. LUNGS: Decreased breath sounds. HEART: Normal sinus rhythm. No murmur, no gallops, no rubs. ABDOMEN: Globular, soft, nontender, no masses. EXTREMITIES: No edema, no deformities. Medications of 07/27/2018 reviewed. LABORATORY DATA: Laboratories of 07/27/2018, white count 6.1, hemoglobin 8. Sodium 137, potassium 3 .5, chloride 97, carbon dioxide 32, BUN 40, creatinine 5.69, glucose 147, calcium 8.9, magnesium 2.0. ASSESSMENT AND PLAN: 1. Congestive heart failure, clinically improved. My plan is to reschedule him back for dialysis to [place]. Our plan is to max out fluid removal as tolerated by the patient. 2. End-stage renal disease, stable. We will continue Saturday, Saturday, Saturday dialysis. No indica tion for any emergent hemodialysis today. 3. Anemia - the patient has been restarted back on Epogen 7500 units subcutaneous every week. 4. Hypertension, excellent control. Currently, on losartan and Coreg. 5. Type 2 diabetes mellitus, stable. We will recheck base met and CBC again in a.m.
[2018-07-27] MEDS: Amlodipine 5 MG TAB PO SCH ×2 (10:24→20:29)
[2018-07-27] MEDS: Losartan 25 MG TAB PO SCH (10:24)
[2018-07-27] MEDS: Isosorbide Dinitrate 20 MG TAB PO SCH ×2 (10:25→20:29)
[2018-07-27] MEDS: Carvedilol 25 MG TAB PO SCH ×2 (10:25→20:29)
[2018-07-27] MEDS: Heparin 5,000 UNITS/ML VIAL SC SCH (10:26)
[2018-07-27] MEDS ORDERED: Insulin Regular 300 UNITS/3 ML VIAL SC PRN ×2 (11:15→22:02)
[2018-07-27] MEDS: Fluticasone Propionate Nasal Spray 16 gm Bottle NASAL SCH (11:47)
[2018-07-27] MEDS: Benzonatate 100 MG CAP PO PRN ×2 (15:46→23:35)
[2018-07-27] MEDS ORDERED: Clopidogrel Bisulfate 75 MG TAB ONE (18:34)
--- NOTE | 2018-07-27 18:56 | PRG ---
DATE OF SERVICE: 07/27/2018 SERVICE: Pulmonary Medicine. INTERVAL HISTORY: Patient is doing fine from a respiratory standpoint. He denies any current fevers , chills, shortness of breath, nausea or vomiting. He is having a significant cough. He is bringing up a little bit of frothy pink sputum. Otherwise, there has been no interval change to his conditio n. PHYSICAL EXAMINATION: VITAL SIGNS: Afebrile, pulse 77, blood pressure 145/65, respirations 18, saturation on room ai r. GENERAL: Patient is awake, alert, no apparent distress. LUNGS: Crackles are present bilaterally. No prolonged expiratory phase or wheezing is appreciated. HEART: Normal rate, regular. ABDOMEN: Soft, nontender, nondistended. Bowel sounds are positive. MUSCULOSKELETAL: No cyanosis or clubbing. There is trace to 1+ pitting in the bilateral lower extre mities. NEUROLOGIC: Grossly nonfocal. LABORATORY DATA: WBC 6.1, hemoglobin 8.0, platelets 211,000. Creatinine 5.69, BUN 40. Basic metabo lic profile is otherwise unremarkable. Magnesium 2.0. IMAGIN. Echocardiogram demonstrates technically difficult study. Left ventricular function is depressed, though an EF is not calculated. Normal left atrium, mild to moderate tricuspid regurgitation is not ed. 2. Renal ultrasound demonstrates medical renal disease. Simple appearing cyst. Bilateral pleural e ffusions. No significant hydronephrosis are identified. ASSESSMENT: 1. Acute hypoxic respiratory failure, resolved. 2. Hypertensive emergency. 3. End-stage renal disease. 4. Acute on chronic systolic and diastolic heart failure. DISCUSSION AND PLAN: The patient is back on room air. He is going for dialysis once again tomorrow where we should focus on getting as much fluid off of him as he tolerates. At this point, he has no further requirements for inpatient Pulmonary or Critical Care opinion, and I will sign off. Please c all with additional questions or concerns moving forward.
[2018-07-27] MEDS: Terazosin HCl 5 MG CAP PO SCH (20:28)
[2018-07-27] MEDS: Simvastatin 5 MG TAB PO SCH (20:29)
[2018-07-27] MEDS: Insulin Glargine 20 UNITS in Pre-Filled Syringe SC SCH (21:26)
[2018-07-27] MEDS: Insulin Regular 300 UNITS/3 ML VIAL SC PRN (21:27)
--- NOTE | 2018-07-27 21:47 | PDOC.PN ---
- Subjective Encounter Start Date: 07/27/18 Encounter Start Time: 10:00 Patient seen and examined for Resp failure. SOB improving. Intermittent dry cough +. Chronic vertigo with left hearing deficits. No other complaints. No overnight events - Objective Resuscitation Status: Resuscitation Status FULL:Full Resuscitation MAR Reviewed: Yes Vital Signs & Weight: Vital Signs (12 hours) Temp Pulse Pulse Pulse Resp BP BP 07/27/18 21:27 165/70 H 07/27/18 20:43 91 18 07/27/18 20:41 91 18 07/27/18 20:29 90 178/77 H 07/27/18 20:20 07/27/18 20:00 98.9 F 90 21 H 07/27/18 15:50 98.3 F 77 18 07/27/18 14:19 85 16 07/27/18 12:32 82 81 178/74 H 07/27/18 11:50 98.0 F 77 18 07/27/18 10:04 80 18 BP BP Pulse Ox 07/27/18 21:27 07/27/18 20:43 93 L 07/27/18 20:41 93 L 07/27/18 20:29 07/27/18 20:20 95 07/27/18 20:00 178/77 H 95 07/27/18 15:50 145/65 H 90 L 07/27/18 14:19 07/27/18 12:32 135/67 07/27/18 11:50 141/63 H 93 L 07/27/18 10:04 98 Weight Weight 165 lb 4 oz Most Recent Monitor Data Heart Rate from ECG 82 NIBP 179/59 NIBP BP-Mean 86 Respiration from ECG 29 SpO2 96 I&O: 07/26/18 07/27/18 07/28/18 06:59 06:59 06:59 Intake Total 118 1206.8 Output Total 0 0 Balance 118 1206.8 Result Diagrams: 07/27/18 04:23 07/27/18 04:23 Additional Labs: Accuchecks 07/27/18 07/27/18 07/27/18 20:47 16:42 10:48 POC Glucose 347 H 318 H 298 H 07/27/18 07/26/18 05:48 16:51 POC Glucose 160 H 316 H Phys Exam - Physical Examination Constitutional: NAD HEENT: PERRLA, moist MMs, oral pharynx no lesions Neck: no JVD Respiratory: no wheezing, no rhonchi Scat rales at bases, No accessory muscle use Cardiovascular: RRR, no rub no heaves/pulsations Gastrointestinal: soft, non-tender, positive bowel sounds Musculoskeletal: no edema, pulses present Neurological: normal sensation Psychiatric: A&O x 3 Dx/Plan - Plan DVT proph w/SCDs 1. Acute hypoxic resp failure/Acute on chronic diastolic HF 2. HTN emergency 3. ESRD on dialysis 4. DM2 5. Prostate CA/ BPH / Anemia due to ESRD/ Elevated troponin due to demand ischemia 6. Chronic cough/ Chronic Vertigo / Other issues per previous notes PLAN: Increase Lantus dose Change sliding scale to aggressive Add Meclizine PRN Cont current Anti HTN meds Dialysis per Nephro Repeat Echo pending Add Flonase/Clarithin AM labs Review of Systems - Review of Systems Respiratory: Cough, Dry. negative: Shortness of Breath, Hemoptysis, SOB with Excertion, Pleuritic Pain, Sputum, Wheezing Cardiovascular: negative: chest pain, palpitations, orthopnea, paroxysmal nocturnal dyspnea, edema, light headedness, other Gastrointestinal: negative: Nausea, Vomiting, Abdominal Pain, Diarrhea, Constipation, Melena, Hematochezia, Other - Medications/Allergies Allergies/Adverse Reactions: Allergies Allergy/AdvReac Type Severity Reaction Status Date / Time guaifenesin Allergy Verified 07/26/18 02:51 Medications: Current Medications Acetaminophen (Tylenol) 650 mg PO Q4H PRN PRN Reason: Headache/Fever/Mild Pain (1-3) Acetaminophen (Tylenol) 650 mg KS Q4H PRN PRN Reason: Headache/Fever/Mild Pain (1-3) Albuterol/Ipratropium (Duoneb) 3 ml NEB Q6H PRN PRN Reason: SOB &/or Wheezing Last Admin: 07/26/18 18:24 Dose: 3 ml Albuterol/Ipratropium (Duoneb) 3 ml NEB [id number] [facility] Last Admin: 07/27/18 20:41 Dose: 3 ml Amlodipine Besylate (Norvasc) 5 mg PO BID [facility] Last Admin: 07/27/18 20:29 Dose: 5 mg Aspirin (Aspirin Chewable) 81 mg PO DAILY [facility] Last Admin: 07/27/18 10:25 Dose: 81 mg Benzonatate (Tessalon) 100 mg PO TID PRN PRN Reason: Cough Last Admin: 07/27/18 15:46 Dose: 100 mg Budesonide (Pulmicort Neb Solution) 0.5 mg INH BID-RT [facility] Last Admin: 07/27/18 20:43 Dose: 0.5 mg Carvedilol (Coreg) 25 mg PO BID [facility] Last Admin: 07/27/18 20:29 Dose: 25 mg Clonidine (Catapres) 0.1 mg PO Q4H PRN PRN Reason: .SBP>180 Clonidine (Catapres) 0.1 mg PO Q4H PRN PRN Reason: Systolic BP > 180 Dextrose/Water (Dextrose 50%) 25 gm SLOW IVP PRN PRN PRN Reason: Hypoglycemia Epoetin Ryan (Procrit) 7,500 units SC Q7D [facility] Last Admin: 07/26/18 10:09 Dose: 7,500 units Fluticasone Propionate (Flonase Nasal [place]) 0 gm NASAL Q24H [facility] Last Admin: 07/27/18 11:47 Dose: 1 spray Glucagon (Glucagon) 1 mg IM PRN PRN PRN Reason: Hypoglycemia Hydralazine HCl (Apresoline) 10 mg SLOW IVP Q4H PRN PRN Reason: SBP Greater Than 180 Last Admin: 07/26/18 16:50 Dose: 10 mg Hydralazine HCl (Apresoline) 25 mg PO Q8HR [facility] Last Admin: 07/27/18 21:27 Dose: 25 mg Dextrose/Water (D5w) 1,000 mls @ 0 mls/hr IV .Q0M PRN PRN Reason: Hypoglycemia Insulin Glargine 20 units/ (Miscellaneous Medication) 0.2 mls @ 0 mls/hr SC HS [facility] Last Admin: 07/27/18 21:26 Dose: 0.2 mls Insulin Glargine 20 units/ (Miscellaneous Medication) 0.2 mls @ 0 mls/hr SC QAM [facility] Insulin Human Regular (Humulin R) 0 units SC .BEDTIME SLIDING SC PRN PRN Reason: Bedtime Correctional Scale Last Admin: 07/27/18 21:27 Dose: 5 unit Insulin Human Regular (Humulin R) 0 units SC .MODERATE SLIDING SC PRN PRN Reason: Moderate Correctional Scale Last Admin: 07/27/18 17:00 Dose: 8 unit Isosorbide Dinitrate (Isordil) 20 mg PO BID [facility] Last Admin: 07/27/18 20:29 Dose: 20 mg Labetalol HCl (Normodyne) 10 mg SLOW IVP Q4H PRN PRN Reason: Systolic BP > 180 Loratadine (Claritin) 10 mg PO DAILY [facility] Losartan Potassium (Cozaar) 100 mg PO DAILY [facility] Last Admin: 07/27/18 10:24 Dose: 100 mg Meclizine HCl (Antivert) 12.5 mg PO Q8H PRN PRN Reason: Dizziness Nitroglycerin (Nitro-Bid 2% Ointment) 0.5 inch TOP Q8HR PRN PRN Reason: SBP Greater Than 180 Ondansetron HCl (Zofran) 4 mg IVP Q6H PRN PRN Reason: Nausea/Vomiting Simvastatin (Zocor) 10 mg PO HS [facility] Last Admin: 07/27/18 20:29 Dose: 10 mg Terazosin HCl (Hytrin) 10 mg PO [facility] Last Admin: 07/27/18 20:28 Dose: 10 mg Throat Lozenges (Cepastat Lozenges) 1 daniel PO Q2H PRN PRN Reason: Sore Throat Last Admin: 07/27/18 20:29 Dose: 1 daniel
[2018-07-28 05:31] LABS: #Eosinphils 0.4 thou/uL (0.0-0.7); #Lymphocytes 1.7 thou/uL (1.20-3.40); #Monocytes 0.5 thou/uL (0.11-0.59); #Neutrophils 3.9 thou/uL (1.40-6.50); %Basophils 0.4 % (0.0-1.0); %Eosinophils 6.4 % (0.0-10.0); %Lymphocytes 25.5 % (21.0-51.0); %Monocytes 7.1 % (0.0-10.0); %Neutrophils 60.7 % (42.0-75.0); Hemoglobin 8.1 g/dL (14.0-18.0); Mean Corpuscular HGB CONC 34.3 g/dL (32.0-36.0); Mean Corpuscular Hemoglobin 34.4 pg (27.0-31.0); Mean Platelet Volume 7.6 fL (7.4-10.4); Platelet Count 225 thou/uL (130-400); RBC Distribution Width 13.2 % (11.5-14.5); Red Blood Cell (RBC) Count 2.34 mill/uL (4.70-6.10); White Blood Cell (WBC) Count 6.5 thou/uL (4.8-10.8)
[2018-07-28] MEDS: hydrALAZINE 25 MG TAB PO SCH ×3 (05:34→21:55)
[2018-07-28] MEDS: Cepastat Lozenges 1 LOZ PO PRN ×2 (05:35→21:57)
[2018-07-28 05:58] LABS: Anion Gap 16 mmol/L (10-20); BUN (Urea Nitrogen) 54 mg/dL (8.4-25.7); Calc. Creatinine Clearance 10 mL/min (70-130); Calcium 8.3 mg/dL (7.8-10.44); Carbon Dioxide 27 mmol/L (23-31); Chloride 96 mmol/L (98-107); Estimated GFR-MDRD 7; Glucose 109 mg/dL (80-115); Potassium 3.6 mmol/L (3.5-5.1); Sodium 135 mmol/L (136-145)
[2018-07-28] MEDS: Budesonide 0.5 MG/2 ML NEB INH SCH ×2 (06:12→19:48)
--- NOTE | 2018-07-28 09:42 | PRG ---
DATE OF SERVICE: 07/28/2018 SUBJECTIVE: Mr. Bauer is a 68-year-old male with ESRD and admitted for shortness of robinson ath, secondary to congestive heart failure. I am currently dialyzing him. I am at the bedside super vising his dialysis. We are attempting to remove about 3 liters of fluid with him. His repeat cardi ac echo showed markedly decreased ejection fraction. He is mildly short of breath this morning. OBJECTIVE: VITAL SIGNS: Blood pressure 185/77, patient had a heart rate of 96, respiratory rate 18, temperature 98.1, and pulse ox 96%. GENERAL EXAM: Awake, alert, comfortable, not in overt distress SKIN: Adequate turgor. HEENT: He has slightly pale conjunctivae, anicteric sclerae. NECK: No neck mass, no carotid bruits, no JVD. CHEST: No deformities. LUNGS: Decreased breath sounds. HEART: Normal sinus rhythm. No murmur, no gallops, no rubs. ABDOMEN: Globular, soft, nontender, no masses. EXTREMITIES: No edema, no deformities. Medications of 07/28/2018 reviewed. LABORATORY DATA: Laboratories of 07/28/2018, white count 6.5, hemoglobin 8.1. Sodium 135, potassium 3.6, chloride 96, carbon dioxide 27, BUN 54, creatinine 7.59, glucose 109, calcium 8.3. ASSESSMENT: 1. End-stage renal disease, stable. Tolerating current hemodialysis regimen. Maxing out fluid kirby sherrell as tolerated by the patient. If he is still short of breath tomorrow, we can do an extra dialysi s with this patient. 2. Congestive heart failure, clinically stable. Maxing out his Coreg and losartan due to the decrea sed ejection fraction. Maximal fluid removal with dialysis. 3. Chronic anemia - on weekly Epogen. P.r.n. blood transfusion. Agree with current management.
[2018-07-28] MEDS: Losartan 25 MG TAB PO SCH (12:23)
[2018-07-28] MEDS: Amlodipine 5 MG TAB PO SCH ×2 (12:24→21:41)
[2018-07-28] MEDS: Carvedilol 25 MG TAB PO SCH ×2 (12:24→21:41)
[2018-07-28] MEDS: Fluticasone Propionate Nasal Spray 16 gm Bottle NASAL SCH (12:24)
[2018-07-28] MEDS: Insulin Glargine 20 UNITS in Pre-Filled Syringe SC SCH ×2 (12:24→21:40)
[2018-07-28] MEDS: Isosorbide Dinitrate 20 MG TAB PO SCH ×2 (12:24→21:41)
[2018-07-28] MEDS: Loratadine 10 MG TAB PO SCH (12:24)
--- NOTE | 2018-07-28 19:07 | PDOC.PN ---
- Subjective Encounter Start Date: 07/28/18 Encounter Start Time: 12:30 Patient seen and examined for Volume overload. s/p dialysis today. SOB improving. No new complaints. No overnight events - Objective Resuscitation Status: Resuscitation Status FULL:Full Resuscitation MAR Reviewed: Yes Vital Signs & Weight: Vital Signs (12 hours) Temp Pulse Resp BP Pulse Ox 07/28/18 14:08 75 16 98 07/28/18 07:35 98.1 F 96 18 185/77 H 96 07/28/18 07:30 96 Weight Weight 164 lb 9 oz Most Recent Monitor Data Heart Rate from ECG 82 NIBP 179/59 NIBP BP-Mean 86 Respiration from ECG 29 SpO2 96 I&O: 07/27/18 07/28/18 07/29/18 06:59 06:59 06:59 Intake Total 1206.8 240 Output Total 0 50 Balance 1206.8 190 Result Diagrams: 07/28/18 04:31 07/28/18 04:31 Additional Labs: Accuchecks 07/28/18 07/28/18 07/28/18 16:33 12:45 05:33 POC Glucose 264 H 154 H 96 07/27/18 07/26/18 07/26/18 20:47 02:23 01:54 POC Glucose 347 H Greater than 550 H* Greater than 550 H* EKG Reviewed by me: Yes (Tele SR) Phys Exam - Physical Examination Constitutional: NAD Respiratory: no wheezing, no rhonchi Cardiovascular: RRR, no rub Gastrointestinal: soft, non-tender, positive bowel sounds Musculoskeletal: no edema Neurological: moves all 4 limbs Dx/Plan - Plan DVT proph w/SCDs 1. Acute hypoxic resp failure/Acute on chronic diastolic HF 2. HTN emergency 3. ESRD on dialysis 4. DM2 5. Prostate CA/ BPH / Anemia due to ESRD/ Elevated troponin due to demand ischemia 6. Chronic cough/ Chronic Vertigo / Other issues per previous notes PLAN: Increase Lantus dose with sliding scale Cont current Anti HTN meds Dialysis per Nephro DC in AM if stable Review of Systems - Review of Systems Respiratory: negative: Cough, Dry, Shortness of Breath, Hemoptysis, SOB with Excertion, Pleuritic Pain, Sputum, Wheezing Cardiovascular: negative: chest pain, palpitations, orthopnea, paroxysmal nocturnal dyspnea, edema, light headedness, other - Medications/Allergies Allergies/Adverse Reactions: Allergies Allergy/AdvReac Type Severity Reaction Status Date / Time guaifenesin Allergy Verified 07/26/18 02:51 Medications: Current Medications Acetaminophen (Tylenol) 650 mg PO Q4H PRN PRN Reason: Headache/Fever/Mild Pain (1-3) Acetaminophen (Tylenol) 650 mg AK Q4H PRN PRN Reason: Headache/Fever/Mild Pain (1-3) Albuterol/Ipratropium (Duoneb) 3 ml NEB Q6H PRN PRN Reason: SOB &/or Wheezing Last Admin: 07/26/18 18:24 Dose: 3 ml Albuterol/Ipratropium (Duoneb) 3 ml NEB [id number] [facility] Last Admin: 07/28/18 14:08 Dose: 3 ml Amlodipine Besylate (Norvasc) 5 mg PO BID [facility] Last Admin: 07/28/18 12:24 Dose: 5 mg Aspirin (Aspirin Chewable) 81 mg PO DAILY [facility] Last Admin: 07/28/18 12:24 Dose: 81 mg Benzonatate (Tessalon) 100 mg PO TID PRN PRN Reason: Cough Last Admin: 07/27/18 23:35 Dose: 100 mg Budesonide (Pulmicort Neb Solution) 0.5 mg INH BID-RT [facility] Last Admin: 07/28/18 06:12 Dose: 0.5 mg Carvedilol (Coreg) 25 mg PO BID [facility] Last Admin: 07/28/18 12:24 Dose: 25 mg Clonidine (Catapres) 0.1 mg PO Q4H PRN PRN Reason: Systolic BP > 180 Dextrose/Water (Dextrose 50%) 25 gm SLOW IVP PRN PRN PRN Reason: Hypoglycemia Epoetin Ryan (Procrit) 7,500 units SC Q7D [facility] Last Admin: 07/26/18 10:09 Dose: 7,500 units Fluticasone Propionate (Flonase Nasal [place]) 0 gm NASAL Q24H [facility] Last Admin: 07/28/18 12:24 Dose: 1 spray Glucagon (Glucagon) 1 mg IM PRN PRN PRN Reason: Hypoglycemia Hydralazine HCl (Apresoline) 10 mg SLOW IVP Q4H PRN PRN Reason: SBP Greater Than 180 Last Admin: 07/26/18 16:50 Dose: 10 mg Hydralazine HCl (Apresoline) 25 mg PO Q8HR [facility] Last Admin: 07/28/18 14:12 Dose: 25 mg Dextrose/Water (D5w) 1,000 mls @ 0 mls/hr IV .Q0M PRN PRN Reason: Hypoglycemia Insulin Glargine 20 units/ (Miscellaneous Medication) 0.2 mls @ 0 mls/hr SC [facility] Last Admin: 07/27/18 21:26 Dose: 0.2 mls Insulin Glargine 20 units/ (Miscellaneous Medication) 0.2 mls @ 0 mls/hr SC QAM [facility] Last Admin: 07/28/18 12:24 Dose: 0.2 mls Insulin Human Regular (Humulin R) 0 units SC .BEDTIME SLIDING SC PRN PRN Reason: Bedtime Correctional Scale Last Admin: 07/27/18 21:27 Dose: 5 unit Insulin Human Regular (Humulin R) 0 units SC .AGGRESSIVE SLIDING PRN PRN Reason: Aggressive Sliding Scale Isosorbide Dinitrate (Isordil) 20 mg PO BID [facility] Last Admin: 07/28/18 12:24 Dose: 20 mg Labetalol HCl (Normodyne) 10 mg SLOW IVP Q4H PRN PRN Reason: Systolic BP > 180 Loratadine (Claritin) 10 mg PO DAILY [facility] Last Admin: 07/28/18 12:24 Dose: 10 mg Losartan Potassium (Cozaar) 100 mg PO DAILY [facility] Last Admin: 07/28/18 12:23 Dose: 100 mg Meclizine HCl (Antivert) 12.5 mg PO Q8H PRN PRN Reason: Dizziness Nitroglycerin (Nitro-Bid 2% Ointment) 0.5 inch TOP Q8HR PRN PRN Reason: SBP Greater Than 180 Ondansetron HCl (Zofran) 4 mg IVP Q6H PRN PRN Reason: Nausea/Vomiting Simvastatin (Zocor) 10 mg PO [facility] Last Admin: 07/27/18 20:29 Dose: 10 mg Terazosin HCl (Hytrin) 10 mg PO [facility] Last Admin: 07/27/18 20:28 Dose: 10 mg Throat Lozenges (Cepastat Lozenges) 1 daniel PO Q2H PRN PRN Reason: Sore Throat Last Admin: 07/28/18 05:35 Dose: 1 daniel
[2018-07-28] MEDS: Simvastatin 5 MG TAB PO SCH (21:41)
[2018-07-28] MEDS: Terazosin HCl 5 MG CAP PO SCH (21:41)
[2018-07-28] MEDS: Insulin Regular 300 UNITS/3 ML VIAL SC PRN (21:54)
[2018-07-28] MEDS ORDERED: Insulin Regular 300 UNITS/3 ML VIAL SC PRN (23:50)
[2018-07-29] MEDS: hydrALAZINE 25 MG TAB PO SCH (06:03)
[2018-07-29] MEDS: Budesonide 0.5 MG/2 ML NEB INH SCH (07:28)
--- NOTE | 2018-07-29 08:48 | PRG ---
DATE OF SERVICE: 07/29/2018 RENAL MEDICINE SUBJECTIVE: Mr. Bauer is a 68-year-old male with ESRD and followed by the Renal Service for his maintenance hemodialysis. He was initially admitted for congestive heart failure. He has u ndergone dialysis with fluid removal. He underwent his first regular dialysis yesterday and we remov ed about 4 liters. His breathing is improved. He denies any chest pain or worsening shortness of br eath. OBJECTIVE: VITAL SIGNS: Blood pressure is 144/67, heart rate 76, respiratory rate 16, O2 sat 97%. GENERAL: Awake, alert, comfortable, not in distress. SKIN: Adequate turgor. HEENT: He has slightly pale conjunctivae, anicteric sclerae. NECK: No neck mass, no carotid bruits, no JVD. CHEST: No deformities. LUNGS: Decreased breath sounds. HEART: Normal sinus rhythm. No murmur, no gallops, no rubs. ABDOMEN: Globular, soft, nontender. No masses. EXTREMITIES: No edema, no deformities. MEDICATIONS: Medications of 07/29/2018 reviewed. LABORATORY DATA: Laboratories of 07/28/2018, white count 6.5, hemoglobin 8.1. Sodium 135, potassium 3.6, chloride 96, carbon dioxide 27, BUN 54, creatinine 7.59, calcium 8.3. ASSESSMENT AND PLAN: 1. Congestive heart failure, clinically much improved. Continue current dialysis regimen. Continue to max out fluid removal with dialysis. 2. End-stage renal disease, stable. Continuing Saturday, Saturday and Saturday dialysis. As previousl y mentioned, we are maxing out fluid removal with the dialysis. 3. Anemia, continuing weekly Epogen. No changes will be made with the current Epogen regimen. Plea se note, the patient is on maximal dose of his Coreg and losartan. Most recent echo showed a decreased ejection fraction.
[2018-07-29] MEDS: Carvedilol 25 MG TAB PO SCH (09:26)
[2018-07-29] MEDS: Amlodipine 5 MG TAB PO SCH (09:26)
[2018-07-29] MEDS: Insulin Glargine 20 UNITS in Pre-Filled Syringe SC SCH (09:26)
[2018-07-29] MEDS: Losartan 25 MG TAB PO SCH (09:26)
[2018-07-29] MEDS: Loratadine 10 MG TAB PO SCH (09:26)
[2018-07-29] MEDS: Isosorbide Dinitrate 20 MG TAB PO SCH (09:26)
[2018-07-29] MEDS: Fluticasone Propionate Nasal Spray 16 gm Bottle NASAL SCH (09:27)
[2018-07-29] MEDS ORDERED: Amlodipine 5 MG TAB PO SCH (10:00)
[2018-07-29 12:29] VITALS: BP 158/71; TEMP 98.1
--- NOTE | 2018-07-29 23:16 | DIS ---
DATE OF ADMISSION: 07/26/2018 DATE OF DISCHARGE: 07/29/2018 DISCHARGE DISPOSITION: Home. FOLLOWUP: 1. Follow up with primary care physician, Dr. Luis Gutierrez at [facility]. 2. Follow up with Cardiology, Dr. Sandeep oWods in 2-3 weeks. 3. Follow up with Nephrology, Dr. Peguero as scheduled. 4. Follow up with ENT clinic is recommended for chronic dizziness. ALLERGIES: The patient is allergic to GUAIFENESIN. DISCHARGE MEDICATIONS: 1. Hydralazine 25 mg every 8 hourly. 2. Meclizine as needed. 3. All other home medications were left unchanged. BRIEF HOSPITAL COURSE: The patient is a 68-year-old male with end-stage renal disease on hemodialysi s and hypertension who presented to the hospital with worsening shortness of breath on 07/25/2018. H is O2 sats in the emergency room were in 50s to 60s. He was placed on noninvasive positive pressure ventilation. He underwent emergent hemodialysis. His blood sugar on admission was 786 with BNP of 1 100 and troponins in the indeterminate range. He received IV insulin boluses in the emergency room. He was placed on nitroglycerin drip that was later weaned off. He underwent hemodialysis per Nephro logy. Echocardiogram showed ejection fraction of 50%-55% with mildly dilated left atrium, mild tricu spid regurgitation and [id number] mitral regurgitation. Symptomatically, he has improved. His medications have been optimized by Nephrology. He has been cleared by consultants for discharge. FINAL DIAGNOSES: 1. Acute hypoxic respiratory failure. 2. Acute on chronic diastolic heart failure. 3. Hypertensive emergency. 4. End-stage renal disease on hemodialysis. 5. Diabetes mellitus type 2. 6. Prostate cancer. 7. Benign prostatic hypertrophy. 8. Chronic cough. 9. Chronic vertigo. 10. Anemia secondary to renal insufficiency. 11. Elevated troponin secondary to demand ischemia. 12. Mild hyponatremia. Plan of care was discussed with the patient in detail. He stated understanding.
== END 2018-07-29 13:36 | disposition home or self-care (01) | DRG 291 ==
LOC: ERS 22:39 → CCU 07-26 02:03 → 2NO 07-26 15:45
PROVIDERS: ADMIT Internal Medicine; ATTEND Internal Medicine
PROC: 5A09357 Assistance with Respiratory Ventilation, Less than 24 Consecutive Hours, Continuous Positive Airway Pressure (ICD-10-PCS; principal; 2018-07-26)
PROC: 5A1D70Z Performance of Urinary Filtration, Intermittent, Less than 6 Hours Per Day (ICD-10-PCS; 2018-07-26)
PROC: 5A1D70Z Performance of Urinary Filtration, Intermittent, Less than 6 Hours Per Day (ICD-10-PCS; 2018-07-28)
DX: I13.2 Hypertensive heart and chronic kidney disease with heart failure and with stage 5 chronic kidney disease, or end stage renal disease (principal); E11.00 Type 2 diabetes mellitus with hyperosmolarity without nonketotic hyperglycemic-hyperosmolar coma (NKHHC); N18.6 End stage renal disease; J96.01 Acute respiratory failure with hypoxia; I50.33 Acute on chronic diastolic (congestive) heart failure; I16.1 Hypertensive emergency; I24.8 Other forms of acute ischemic heart disease; E87.1 Hypo-osmolality and hyponatremia; Z99.2 Dependence on renal dialysis; E11.22 Type 2 diabetes mellitus with diabetic chronic kidney disease; R42 Dizziness and giddiness; N40.0 Benign prostatic hyperplasia without lower urinary tract symptoms; E11.21 Type 2 diabetes mellitus with diabetic nephropathy; N52.9 Male erectile dysfunction, unspecified; I25.10 Atherosclerotic heart disease of native coronary artery without angina pectoris; I08.1 Rheumatic disorders of both mitral and tricuspid valves; D63.1 Anemia in chronic kidney disease; R05 Cough; Z79.4 Long term (current) use of insulin; Z79.82 Long term (current) use of aspirin; Z85.46 Personal history of malignant neoplasm of prostate; Z95.5 Presence of coronary angioplasty implant and graft
CPT/HCPCS: 36415; 36416; 71045; 76770; 80048; 80053; 81003; 81015; 82553; 82805; 83690; 83735; 83880; 83930; 84484; 85025; 90935; 93005; 93306; 93798; 94640; 94660; 96365; 96366; 96367; G0257; J0360; J1610; J1644; J1815; J7050; J7620; J7626; Q4081

== ENCOUNTER 2019-11-09 05:07 | Inpatient (IN) | payer MEDICARE ==
[2019-11-09 05:24] LABS: Base Excess-Venous -1.9 mmol/L (-2.0 to 3.0); Bicarbonate (HCO3v) 25.4 mmol/L (22.0-28.0); CO2 Tension (PvCO2) 52.8 mmHg (40.0-50.0); Calcium, Ionized 1.17 mmol/L (See Comments:); Chloride 104 mmol/L (98-107); Hemoglobin - Calc 12.8 g/dL (14.0-18.0); Potassium 5.3 mmol/L (3.5-5.1); Sodium 137 mmol/L (138-145); vO2 Saturation-calc 76.7 % (60.0-85.0)
[2019-11-09] MEDS ORDERED: Propofol 1,000 MG/100 ML VIAL IV ONE (05:25)
[2019-11-09 05:55] LABS: Analyzer IN Cardio ER; Base Excess (BEa) -7.3 mEq/L (-2.0 to +3.0); Calcium, Ionized 1.28 mmol/L (1.12-1.30); Carboxyhemoglobin (COHb) 0.3 gm% (0.0-3.0); Hemoglobin (Hb) 10.8 g/dL (14.0-18.0); O2 Tension (PaO2) 86.8 mmHg (> 70.0); Potassium - ABG Lab 4.61 mmol/L (3.70-5.30); pH, Arterial 7.28 (7.35-7.45)
[2019-11-09 05:56] LABS: Puncture Site RRA
[2019-11-09 05:58] LABS: Band 3 % (5-11); Eosinophils 2 % (0-10); Hemoglobin 10.7 g/dL (14.0-18.0); Lymphocytes 36 % (21-51); MDiff Complete? YES; Mean Corpuscular HGB CONC 34.1 g/dL (32.0-36.0); Mean Corpuscular Hemoglobin 36.6 pg (27.0-31.0); Monocytes 3 % (0-10); Neutrophil 54 % (42-75); Platelet Count 243 thou/uL (130-400); Platelet Morphology Comment Appears Adequate; RBC Distribution Width 12.6 % (11.5-14.5); Reactive Lymphocytes 2 % (0-10); Red Blood Cell (RBC) Count 2.91 mill/uL (4.70-6.10); White Blood Cell (WBC) Count 18.6 thou/uL (4.8-10.8)
[2019-11-09 06:15] LABS: ALT (SGPT) 53 U/L (8-55); AST (SGOT) 52 U/L (5-34); Albumin 3.8 g/dL (3.4-4.8); Alkaline Phosphatase 113 U/L (40-110); Anion Gap 28 mmol/L (10-20); BUN (Urea Nitrogen) 63 mg/dL (8.4-25.7); Bilirubin, Total 0.8 mg/dL (0.2-1.2); Calc. Creatinine Clearance 0 mL/min (70-130); Calcium 10.7 mg/dL (7.8-10.44); Carbon Dioxide 14 mmol/L (23-31); Chloride 100 mmol/L (98-107); Estimated GFR-MDRD 5; Globulin 2.8 g/dL (2.4-3.5); Glucose 302 mg/dL (80-115); Magnesium 2.3 mg/dL (1.6-2.6); Potassium 3.9 mmol/L (3.5-5.1); Protein, Total 6.6 g/dL (5.8-8.1); Sodium 138 mmol/L (136-145)
[2019-11-09] MEDS ORDERED: Fentanyl 100 MCG/2 ML VIAL ONE (06:33)
[2019-11-09] MEDS ORDERED: Vancomycin HCl 1 GM in Sodium Chloride 0.9% 250 ML 250 ML IVPB SCH (06:37)
[2019-11-09] MEDS ORDERED: CCU Electrolyte Replacement 1 EACH FS ONE (06:37)
[2019-11-09] MEDS ORDERED: HumaLOG 300 UNITS/3 ML VIAL SC PRN (06:37)
[2019-11-09] MEDS ORDERED: Sodium Chloride 0.9% 1,000 ML IV SCH ×2 (06:37→12:27)
[2019-11-09] MEDS ORDERED: Norepinephrine 8 MG/0.9% NS 250 ML IVPB SCH (06:37)
[2019-11-09] MEDS ORDERED: Ondansetron PF 4 MG/2 ML Vial IVP PRN (06:37)
[2019-11-09] MEDS ORDERED: Acetaminophen 650 MG Suppository PR PRN (06:37)
[2019-11-09] MEDS ORDERED: Dextrose 50% Abboject 50 ML SYRINGE SLOW IVP PRN (06:37)
[2019-11-09] MEDS ORDERED: Ventilator Sedation Protocol 1 EACH FS ONE (06:37)
[2019-11-09] MEDS ORDERED: Dextrose 5% in Water 1,000 ML IV PRN (06:37)
[2019-11-09] MEDS ORDERED: Ondansetron ODT 4 MG TAB PO PRN (06:37)
[2019-11-09 06:38] LABS: CKMB 1.5 ng/mL (0-6.6)
[2019-11-09] MEDS ORDERED: fentaNYL Citrate/PF 2,000 MCG in Sodium Chloride 0.9% 60 ML IV SCH (06:38)
[2019-11-09] MEDS ORDERED: Morphine 2 MG/ML SYRINGE SLOW IVP PRN (06:38)
[2019-11-09] MEDS ORDERED: Propofol BOLUS 1,000 MG/100 ML VIAL IV PRN (06:38)
[2019-11-09] MEDS ORDERED: Fentanyl BOLUS 250 ML IVPB PRN (06:38)
[2019-11-09] MEDS ORDERED: Lorazepam 2 MG/ML VIAL SLOW IVP PRN (06:38)
[2019-11-09] MEDS ORDERED: DISCONTINUE PREVIOUS NARCOTIC PAIN MEDICATIONS AND BENZODIAZEPINES FS SCH (06:38)
[2019-11-09] MEDS ORDERED: Pharmacy to Dose VANC AND CEFEPIME IVPB PRN (06:48)
[2019-11-09 07:02] LABS: Actual Bicarbonate (HCO3a) 23.7 mEq/L (22-28); Base Excess (BEa) -1.6 mEq/L (-2.0 to +3.0); CO2 Tension 42.6 mmHg (35.0-45.0); Calcium, Ionized 1.23 mmol/L (1.12-1.30); Carboxyhemoglobin (COHb) 1.4 gm% (0.0-3.0); Hemoglobin (Hb) 9.6 g/dL (14.0-18.0); Potassium - ABG Lab 5.11 mmol/L (3.70-5.30); pH, Arterial 7.36 (7.35-7.45)
[2019-11-09 07:24] LABS: Puncture Site RR
[2019-11-09 07:39] LABS: Phosphorus 5.8 mg/dL (2.3-4.7)
[2019-11-09] MEDS ORDERED: Cefepime 2 GM in Sodium Chloride 0.9% 100 ML IVPB SCH ×2 (08:00→12:00)
[2019-11-09] MEDS ORDERED: Prevnar 13-Val Conj/PF 0.5 ML SYRINGE IM ONE (08:00)
[2019-11-09] MEDS ORDERED: Vancomycin HCl 500 MG in Sodium Chloride 0.9% 100 ML IVPB SCH (08:15)
[2019-11-09] MEDS ORDERED: Vancomycin HCl 1.25 GM in Sodium Chloride 0.9% 250 ML 250 ML IVPB SCH (08:15)
[2019-11-09] MEDS ORDERED: Vancomycin 1.5 GRAM/300 ML BAG 1.5 GM in Premix Bag 1 BAG IVPB SCH ×2 (08:15→11:00)
[2019-11-09] MEDS ORDERED: HOLD VANCOMYCIN FOR LEVEL >20 FS SCH (08:15)
[2019-11-09] MEDS ORDERED: Vancomycin HCl 1 GM in Premix Bag 1 BAG IVPB SCH (08:15)
[2019-11-09] MEDS ORDERED: Vancomycin HCl 750 MG in Sodium Chloride 0.9% 250 ML 250 ML IVPB SCH (08:15)
[2019-11-09] MEDS ORDERED: Famotidine/PF 20 mg/2ml Vial SLOW IVP SCH (09:00)
[2019-11-09] MEDS ORDERED: Calcium Chloride 1 GM/10 ML Abboject SYRINGE ONE (09:03)
[2019-11-09] MEDS ORDERED: Sodium Bicarb 50 MEQ/50 ML Abboject 8.4% SYRINGE ONE (09:03)
[2019-11-09] MEDS ORDERED: EPINEPHrine 1 MG/10 ML Abboject SYRINGE ONE (09:03)
[2019-11-09] MEDS ORDERED: Amiodarone 150 MG/3 ML VIAL ONE (09:03)
[2019-11-09] MEDS ORDERED: Atropine Sulfate 1 mg/10 ml Syringe ONE (09:03)
[2019-11-09] MEDS ORDERED: Dextrose 50% Abboject 50 ML SYRINGE ONE (09:03)
--- NOTE | 2019-11-09 09:19 | PRG ---
DATE OF SERVICE: 11/09/2019 SUBJECTIVE: Mr. Bauer is a 69-year-old male with known history of ESRD, was admitted for congestive heart failure. He was noted to be in acute respiratory distress. He was subsequently intubated. He is now more hemodynamically stable. We are being consulted for emergent hemodialysis. REVIEW OF SYSTEMS: Not obtainable since the patient is intubated. OBJECTIVE: VITAL SIGNS: Blood pressure is noted to be 128/72 with a heart rate of 92. GENERAL: The patient is sedated and intubated on ventilator support. SKIN: Adequate turgor. HEENT: He has pinkish conjunctivae. Anicteric sclerae. NECK: No neck mass. No carotid bruits. No JVD. CHEST: No deformities. LUNGS: Decreased breath sounds. HEART: Normal sinus rhythm. No murmurs. No gallops. No rubs. ABDOMEN: Globular, soft, and nontender. No masses. EXTREMITIES: No edema. No deformities. MEDICATIONS: Medications of November 09, 2019, reviewed. LABORATORY DATA: Laboratories of November 09, 2019, showed the following: White count 18.6 and hemoglobin 10.7. Sodium 138, potassium 3.9, chloride 100, carbon dioxide 14, BUN 63, creatinine 9.85, glucose 302, and calcium 10.7, AST 52 and ALT 53. Lactic acid 3.8. BNP 1025. Troponin I 0.036. Chest x-ray shows CHF. ASSESSMENT/PLAN: 1. Congestive heart failure. We will do emergent hemodialysis with fluid removal. 2. End-stage renal disease, stable. We will continue current Saturday, Saturday, and Saturday hemodialysis regimen. If needed, we can do an extra hemodialysis tomorrow. Overall, prognosis remains guarded. 3. Prostate cancer, currently in remission. 4. Agree with current management. Job ID: [id number]
--- NOTE | 2019-11-09 09:28 | RAD ---
CHEST 1 VIEW PORTABLE: Date: 11/09/2019 HISTORY: Shortness of breath. CPR. COMPARISON: 07/25/2018. FINDINGS: Left central line and endotracheal tubes are in position. There is minimal cardiomegaly. Extensive bi lateral alveolar somewhat confluent opacity changes, particularly in the right lung, and also in the left mid lung zone, with some vascular congestion. IMPRESSION: Extensive interstitial and confluent alveolar opacity changes bilaterally, worse on the right side, w ith cardiomegaly. Continue short-term follow-up. POS: [facility]
[2019-11-09 09:30] LABS: Lactic Acid 1.9 mmol/L (0.5-2.2)
[2019-11-09 09:39] LABS: Troponin I 0.165 ng/mL (< 0.028)
[2019-11-09] MEDS: Propofol 1,000 MG/100 ML VIAL IV PRN ×2 (11:00→17:31)
[2019-11-09 12:24] LABS: Lactic Acid 1.6 mmol/L (0.5-2.2)
--- NOTE | 2019-11-09 12:36 | HP ---
PRIMARY CARE PROVIDER: Dr. Jose Gutierrez. PRIMARY CLINIC NURSE: Jeff George MD CHIEF COMPLAINT: Shortness of breath. HISTORY OF PRESENT ILLNESS: This is a 69-year-old male, who presents to [facility] Emergency Department complaining of severe respiratory distress and shortness of breath as well as unsteady gait and difficulty speaking. The patient's symptoms began abruptly approximately several hours prior to evaluation in the emergency room. The patient's history is significant for end-stage renal disease on hemodialysis. Apparently, undergoing regular hemodialysis on 11/06/2019. The patient was apparently compliant with his medication regimen, becoming increasingly short of breath over the last 48 hours. The patient admitted to cough, but had difficulty giving any specific history and quickly became obtunded in the emergency room, necessitating emergent airway. The patient underwent rapid intubation in the emergency room and was placed on mechanical ventilation. During the intubation, the patient went into cardiac arrest, at which point, a code Blue was instituted with chest compressions. The patient received epinephrine as well as calcium chloride and sodium bicarbonate. The patient continued with CPR for approximately 5 minutes with return of spontaneous circulation. Chest imaging showed bilateral infiltrates and pulmonary edema, and screening metabolic survey showed evidence of lactic acidosis and chronic anemia. The patient was placed on sedation with propofol and fentanyl and transferred to the critical care unit for further evaluation. The history is obtained after review of electronic medical record as well as discussions with the patient's and the emergency room attending. The patient with respiratory failure on mechanical ventilation. PAST MEDICAL HISTORY: 1. Diabetes mellitus type 2. 2. End-stage renal disease with hemodialysis. 3. Chronic diastolic heart failure. 4. Anemia of chronic kidney disease. 5. Prostate cancer. 6. Hypertension. PAST SURGICAL HISTORY: 1. Status post prostatectomy. 2. Status post appendectomy. 3. Status post AV fistula placement in the left upper extremity. 4. Status post tonsillectomy. 5. Status post cardiac stent placement x2. CURRENT MEDICATIONS: 1. Amlodipine 10 mg p.o. daily. 2. Enteric-coated aspirin 81 mg p.o. daily. 3. Coreg 25 mg p.o. b.i.d. 4. Hydralazine 50 mg p.o. b.i.d. 5. Glargine insulin 20 units subcutaneously daily. 6. Isosorbide dinitrate extended release 40 mg p.o. daily. 7. Losartan 100 mg p.o. daily. 8. Ozempic 0.5 mg subcutaneously q.7 days. 9. Simvastatin 20 mg p.o. at bedtime. 10. Torsemide 5 mg p.o. daily. ALLERGIES: TO GUAIFENESIN. FAMILY HISTORY: Positive for coronary artery disease and diabetes mellitus. SOCIAL HISTORY: , accompanied by his in the emergency room. No alcohol, tobacco, or illicit drug use. REVIEW OF SYSTEMS: Unobtainable due to the patient's respiratory failure, on mechanical ventilation and acute encephalopathy. PHYSICAL EXAMINATION: VITAL SIGNS: On admission, blood pressure 213/126, pulse 152, respiratory rate 46, temperature 98.3 degrees Fahrenheit, and O2 saturation 100% on FiO2 100% FiO2 by on SIMV. GENERAL APPEARANCE: This is a 69-year-old male on current mechanical ventilation and sedation, in moderate to severe respiratory distress. HEENT: Pupils are minimally reactive to light and accommodation. Extraocular muscles intact. No scleral icterus. No conjunctival injection. Nares patent. OP is clear. ET tube in place. NECK: Supple. No cervical adenopathy. No thyromegaly. No carotid bruits. No JVD noted. Cervical spine without tenderness to palpation. CHEST: Bilateral crackles and rhonchi with diminished breath sounds bilaterally. CARDIOVASCULAR: S1 and S2 with tachycardia. Distant heart sounds. ABDOMEN: Rounded with landmarks difficult to palpate due to the patient's body habitus. No rebound or guarding noted. Bowel sounds are positive in all 4 quadrants. EXTREMITIES: Warm and dry with fair turgor. Pitting edema to the proximal shins bilaterally. Pulses palpable distally at the dorsalis pedis, posterior tibial, and popliteal arteries bilaterally. Capillary refill less than 2 seconds. NEUROLOGIC: Sedate on mechanical ventilation. : Testicles distended bilaterally. Dark stool at the rectum. PERTINENT LAB AND X-RAY FINDINGS: Sodium 137, potassium 5.3, chloride 100, CO2 of 14, anion gap 28, BUN 63, creatinine 9.85, estimated GFR 5, glucose 302, lactic acid level 11.2, calcium 10.7, magnesium 2.3, AST 52, ALT 53, and alkaline phosphatase 113. Troponin I 0.036 and BNP 1025, previously noted 1105 on 07/25/2018. CBC showed a white blood cell count 18.6, hemoglobin 10.7, hematocrit 31.2, MCV 107, platelet count 243 with 54% neutrophils. ABG dated 11/09/2019, showed a pH of 7.28, pCO2 of 41, pO2 of 87, bicarb of 19, O2 saturation of 95% on 100% FiO2 with SIMV. Portable chest x-ray by my interpretation dated 11/09/2019 shows bilateral pulmonary edema. The ET tube in place with tip above the anjelica. Volume overload in bilateral lung marshall. Cannot rule out infiltrate or early pneumonia. EKG dated 11/09/2019 by my interpretation shows tachycardia with questionable atrial fibrillation, heart rates in the 150s. Left bundle-branch block pattern. Wide-complex tachycardia noted. ASSESSMENT AND PLAN: 1. Severe sepsis with septic shock. The patient will be admitted to the critical care unit. We will initiate cefepime 2 g IV q.12 hours with additional vancomycin 1 g IV x1 now. Blood and urine cultures pending. We will continue intravenous normal saline at 100 mL/h. Levophed and vasopressor support as needed to maintain systolic greater than or equal to 100. Exact etiology and source potentially pulmonary. 2. Acute hypoxic hypercapnic respiratory failure. Intubated in the emergency room. We will continue SIMV at 100% FiO2 with repeat ABG pending. Suspect multifactorial respiratory failure including in potential infectious process and pulmonary edema. Consult Pulmonology/Critical Care Service for evaluation. 3. Cardiac arrest with return of spontaneous circulation. We will continue cardiopulmonary support. Check 2D transthoracic echocardiogram. Consult Cardiology Service. 4. End-stage renal disease with hemodialysis. Appears the patient in volume overload. We will consult Nephrology Service for urgent hemodialysis. 5. Lactic acidosis. Severe and suspected secondary to cardiac arrest. We will continue empiric IV antibiotics as outlined in #1. Serial lactic acid monitoring. 6. Diabetes mellitus type 2. Insulin sliding scale for reflexive coverage. Serial Accu-Cheks q.4 hours. ADA diet when tolerating p.o. intake. 7. Prophylaxis. Sequential compression devices while in bed. Pepcid 20 mg IV b.i.d. CCU electrolyte replacement protocol and ventilator sedation protocol. 8. Code status is full. Surrogate medical decision maker is the patient's spouse. TIME SPENT: I have personally provided 40 minutes of critical care. Job ID: [id number]
[2019-11-09 12:39] LABS: Troponin I 0.447 ng/mL (< 0.028)
--- NOTE | 2019-11-09 15:36 | CON ---
DATE OF CONSULTATION: HISTORY: Darin Bauer is a 69-year-old male, who was admitted through the emergency room after respiratory arrest requiring intubation and CPR. He has longstanding history of restrictive lung disease. He has coronary artery stents placed by [employer] in November 2011. The proximal LAD had a 40% to 50% stenosis, the distal LAD a 70% stenosis. The mid circumflex underwent placement of a PROMUS 2.75 x 28 mm. There was a 90% right posterolateral branch with PROMUS 2.5 x 24 mm stent being placed. Echocardiogram has showed ejection fraction of 50% to 55% with most recent echo in July 2018. He has been followed in the office intermittently since that with only complaints mainly of dyspnea. He returned for followup on October 21, 2019, complaining of recent blood pressure elevations as well as increased chest discomfort over the last 3 months. He would get chest discomfort lasting 2-5 minutes one time per month, which did not seem to be related to exertion. He underwent Lexiscan cardiac PET scan which revealed ischemia in the distal anterior wall and apex. It was recommended he undergo cardiac catheterization, which is set up for November 12. He then presented very early this morning complaining of increased shortness of breath. He came to the emergency room with increasingly short of breath. Apparently, O2 saturations were below 80%. Ultimately, he required intubation, was given epinephrine as well as atropine for bradycardia and apparently had CPR performed for a period of time. He apparently did not complain of any chest discomfort when he presented to the emergency room. PAST MEDICAL HISTORY: End-stage renal disease, on dialysis; hypercholesterolemia, hypertension, coronary artery disease, diabetes. MEDICATIONS: 1. Amlodipine 10 mg daily. 2. Aspirin 81 daily. 3. Carvedilol 25 mg b.i.d. 4. Hydralazine 50 mg-two tablets b.i.d. 5. Insulin. 6. Isosorbide dinitrate ER 60 q.a.m. 7. Losartan 100 mg daily. 8. Meclizine 12.5 mg q.8 hours p.r.n. 9. Simvastatin 20 at bedtime. 10. Torsemide 10mg 1/2 tablet daily. ALLERGIES: GUAIFENESIN. PAST SURGICAL HISTORY: Coronary artery stent, total prostatectomy for prostate cancer, appendectomy, tonsillectomy. SOCIAL HISTORY: He is a former smoker and does not drink. FAMILY HISTORY: Father had myocardial infarction. REVIEW OF SYSTEMS: Unobtainable due to the patient being on the ventilator. PHYSICAL EXAMINATION: VITAL SIGNS: Blood pressure 123/62, pulse of 86. HEENT: PERRL. NECK: Supple. CHEST: Clear. CARDIAC: S1 and S2 normal without any S3, S4, or murmurs. ABDOMEN: Normal bowel sounds without tenderness, organomegaly. EXTREMITIES: Revealed trace pretibial edema. NEUROLOGIC: Grossly intact. SKIN: Warm and dry. LABORATORY DATA: EKG reveals probable sinus tachycardia with left bundle-branch block. The left bundle-branch block is an old finding. Hemoglobin 10.7, hematocrit 31.2, white count 18,600, platelets 243,000. PH 7.36, pCO2 of 42.6, PO2 of 63.8. Sodium 138, potassium 3.9, chloride 100, carbon dioxide 14, BUN 63, creatinine 9.85, glucose 302. Lactic acid 11.2. Troponin I 0.036. BNP 1025.1. Chest x-ray reveals pulmonary edema. IMPRESSION: 1. Flash pulmonary edema, presented with increased respiratory distress, requiring intubation and CPR. 2. Recently abnormal cardiac PET scan with distal anterior wall and apical ischemia. 3. History of restrictive lung disease. 4. Status post stent placement in the mid circumflex and the right posterolateral branch. 5. Ischemic cardiomyopathy with ejection fraction improving from 40% to 45% to 50% to 55%. 6. Osvcpduw-[id number]-dgswqb mitral regurgitation. 7. Diastolic dysfunction. 8. Left bundle branch block. 9. End-stage renal disease, on dialysis. 10. Hypertension. 11. Hypercholesterolemia with most recent LDL of 54. 12. Diabetes. 13. History of prostate cancer. 14. Former smoker. 15. Positive family history. RECOMMENDATIONS: The patient currently is being dialyzed with acute volume removal. Echocardiogram will be performed to reassess left ventricular function. Certainly with this episode, he needs to undergo cardiac catheterization prior to discharge. Risks were previously discussed with him in the office including , myocardial infarction, dye reaction, vascular injury, CVA, transfusion, limb loss, renal loss, etc. Also risk of intervention with PTCA or stent placement discussed including , myocardial infarction, emergent CABG, restenosis, stent thrombosis, vessel perforation, etc. MAMTA if needed. We will further discuss this matter once he is extubated. Job ID: [id number] [facility]
[2019-11-09 15:48] LABS: Troponin I 0.597 ng/mL (< 0.028)
[2019-11-09] MEDS: HumaLOG 300 UNITS/3 ML VIAL SC PRN (16:00)
--- NOTE | 2019-11-09 16:00 | PDOC.EVN ---
Event Note - Event Note Event Note: Inherited the patient. On physical exam, intubated and sedated. Appears to be breathing over SIMV. Significantly reduced breath sounds on the right with inspiratory crackles, likely a result of pulmonary congestion R > L. Ordered another troponin, which appears to be plateuing. May be demand ischemia due to hypervolemic state but may also be worsening cardiac ischemia/infarction, so ordering another EKG. Cardiology onboard. Otherwise, management as per noted in HPI as of today.
[2019-11-09 16:34] LABS: Hemoglobin 10.2 g/dL (14.0-18.0)
--- NOTE | 2019-11-09 18:07 | CON ---
DATE OF CONSULTATION: 11/09/2019 SERVICE: Pulmonary Medicine. REASON FOR CONSULTATION: ICU patient. HISTORY OF PRESENT ILLNESS: The patient is a 69-year-old white male with past medical history significant for end-stage renal disease. He is on hemodialysis and has history, who presenting to the hospital with respiratory failure. Either way, he is currently intubated and sedated and cannot provide any elements of the history. As such, everything is based on chart review. He has had increasing intermittent episodes of shortness of breath for about a week. He woke up on the morning of admission with cough. Last hemodialysis was on Saturday. He is supposed to be dialyzed on Saturday morning. On the morning, he was going for dialysis. He had a sudden abrupt onset in worsening shortness of breath with cough. Not clear if he had any significant sputum production. He presents to the Emergency Department, was found to be in acute respiratory distress. Ultimately, he required intubation to control his airway. PAST MEDICAL HISTORY: 1. End-stage renal disease. 2. Prostate cancer. 3. Chronic systolic and diastolic heart failure. 4. Type 2 diabetes mellitus. 5. Hypertension. PAST SURGICAL HISTORY: 1. Prostatectomy. 2. Appendectomy. 3. Dialysis shunt placement. 4. Tonsillectomy. 5. Percutaneous intervention with stent x2. SOCIAL HISTORY: Negative for alcohol, tobacco, or illicit drug use. He has no exposure to chemicals, dust, asbestos, or tuberculosis. FAMILY HISTORY: Noncontributory. ALLERGIES: GUAIFENESIN. MEDICATIONS: List of his inpatient medications was reviewed. Multiple updates were made at this time. REVIEW OF SYSTEMS: Cannot be obtained as the patient is currently intubated and sedated. PHYSICAL EXAMINATION: VITAL SIGNS: Afebrile, pulse 85, blood pressure 99/60, respirations 44, and saturation 98%, currently on 60% FiO2 and a PEEP of 5. GENERAL: The patient is intubated and sedated. HEENT: Normocephalic and atraumatic. Sclerae white. Conjunctivae pink. Oral mucosa is moist without lesions. LUNGS: Decent air entry. There is no prolonged expiratory phase. Rhonchi are noted, particularly on the right. HEART: Normal rate. Regular. ABDOMEN: Soft, nontender, and nondistended. Bowel sounds are positive. MUSCULOSKELETAL: No cyanosis or clubbing. There is no significant pitting throughout. NEUROLOGIC: Grossly nonfocal. LABORATORY DATA: WBC 18.6, hemoglobin 10.7, and platelets 243,000. A pH of 7.36, pCO2 of 42, and pO2 of 63. At that time, he was on 100% FiO2 with a PEEP of 5. Lactate has cleared to 1.9 down from 11.2. Troponin 0.165. This is uptrending. BNP 1000, which may be close to baseline. A pH of 9.85. Basic metabolic profile is otherwise unremarkable. Calcium 10.7. Liver function studies are otherwise unremarkable. Cortisol level falls within the normal limits. IMAGING STUDIES: Chest x-ray demonstrates confluent opacification throughout the right chest. This is a noncardiogenic pulmonary edema pattern as it spares the diaphragm. There is a large gastric bubble present. Endotracheal tube is in good position roughly 4 cm above the level of the anjelcia. The carinal angle is enlarged suggesting left atrial dilation is present. Left-sided subclavian central venous catheter terminates in decent position. There is a little bit of blunting of left costophrenic angle, suggestive of a touch of volume overload. Pulmonary vascular congestion is also appreciated. ASSESSMENT: 1. Acute hypoxic respiratory failure. 2. Acute on chronic systolic and diastolic heart failure. 3. Healthcare-associated pneumonia. 4. Pulseless electrical activity arrest, returned to sinus rhythm with spontaneous return of circulation. 5. Septic shock. 6. History of prostate cancer, in remission. DISCUSSION AND PLAN: We will continue on empiric antibiotics directed at HCAP coverage. We will wean away oxygen through time as tolerated. Currently, his oxygen requirements are too high to successfully consider extubation. We will try to minimize his fluids through time, now that he has cleared his low blood pressures. He seems to be tolerating dialysis for the time being. Pressors will be weaned away through time. Supportive care will otherwise be continued. I am hopeful that we can proceed with extubation within 24 to 48 hours. Time will tell; however. CRITICAL CARE TIME: 30 minutes. Job ID: [id number]
[2019-11-09] MEDS ORDERED: Labetalol HCl 100 MG/20 ML VIAL SLOW IVP PRN (19:55)
[2019-11-09] MEDS ORDERED: Pantoprazole 40 MG VIAL IVP SCH (21:00)
[2019-11-10 00:42] LABS: Hemoglobin 9.1 g/dL (14.0-18.0)
[2019-11-10] MEDS: Propofol 1,000 MG/100 ML VIAL IV PRN (02:50)
[2019-11-10 05:04] LABS: #Lymphocytes 1.5 thou/uL (1.20-3.40); #Monocytes 0.6 thou/uL (0.11-0.59); #Neutrophils 8.5 thou/uL (1.40-6.50); %Basophils 0.4 % (0.0-1.0); %Eosinophils 0.2 % (0.0-10.0); %Lymphocytes 14.3 % (21.0-51.0); %Monocytes 5.7 % (0.0-10.0); %Neutrophils 79.3 % (42.0-75.0); Hemoglobin 8.7 g/dL (14.0-18.0); Mean Corpuscular HGB CONC 33.8 g/dL (32.0-36.0); Mean Platelet Volume 7.8 fL (7.4-10.4); Platelet Count 182 thou/uL (130-400); RBC Distribution Width 12.7 % (11.5-14.5); Red Blood Cell (RBC) Count 2.47 mill/uL (4.70-6.10); White Blood Cell (WBC) Count 10.7 thou/uL (4.8-10.8)
[2019-11-10 05:34] LABS: ALT (SGPT) 38 U/L (8-55); AST (SGOT) 32 U/L (5-34); Albumin 3.2 g/dL (3.4-4.8); Alkaline Phosphatase 64 U/L (40-110); Anion Gap 14 mmol/L (10-20); BUN (Urea Nitrogen) 41 mg/dL (8.4-25.7); Bilirubin, Total 0.8 mg/dL (0.2-1.2); Calc. Creatinine Clearance 11 mL/min (70-130); Calcium 8.7 mg/dL (7.8-10.44); Carbon Dioxide 27 mmol/L (23-31); Chloride 98 mmol/L (98-107); Estimated GFR-MDRD 9; Globulin 2.8 g/dL (2.4-3.5); Glucose 177 mg/dL (80-115); Potassium 4.7 mmol/L (3.5-5.1); Sodium 134 mmol/L (136-145)
--- NOTE | 2019-11-10 08:49 | PDOC.HOSPP ---
- Subjective Encounter Date: 11/10/19 Encounter Time: 08:40 Subjective: Overnight pressors are off. Remains intubated and sedated. Otherwise dialysis likely tomorrow. No other issues. - Objective Vital Signs & Weight: Vital Signs (12 hours) Temp Pulse Resp BP 11/10/19 08:00 100.2 F H 13 11/10/19 07:50 85 135/61 11/10/19 06:00 13 11/10/19 05:00 100.3 F H 11/10/19 02:09 87 11/10/19 00:00 99.7 F H 11/09/19 22:35 83 11/09/19 22:00 21 H Weight Admit Weight 164 lb Weight 164 lb 7.437 oz Most Recent Monitor Data Heart Rate from ECG 85 NIBP 115/61 NIBP BP-Mean 79 Respiration from ECG 13 SpO2 96 I&O: 11/09/19 11/10/19 11/11/19 06:59 06:59 06:59 Intake Total 820 0 Output Total 680 20 Balance 140 -20 Result Diagrams: 11/10/19 04:53 11/10/19 04:53 Additional Labs: Accuchecks 11/10/19 11/09/19 11/09/19 04:59 21:27 15:18 POC Glucose 187 H 178 H 220 H 11/09/19 10:14 POC Glucose 141 H Hospitalist ROS - Review of Systems ROS unobtainable: due to endotracheal tube - Medication Medications: Active Medications Generic Name Dose Route Start Last Admin Trade Name Freq PRN Reason Stop Dose Admin Insulin Human Lispro 0 units 11/09/19 06:37 11/09/19 16:00 Humalog SC 3 units .MILD SLIDING SCALE PRN Administration Mild Correctional Scale Propofol 1,000 mg 11/09/19 06:38 11/10/19 02:50 Diprivan IV 12/09/19 06:38 1,000 mg INF PRN Administration TO ACHIEVE GOAL RASS Protocol Sodium Chloride 10 ml 11/09/19 09:00 11/09/19 21:17 Flush - Normal Saline IVF 10 ml Q12HR GATO Administration - Exam General Appearance: ill appearing General - other findings: intubated and sedated Eye: PERRL ENT: normocephalic atraumatic, no oropharyngeal lesions, moist mucosa Neck: supple, no JVD, no carotid bruit Heart: RRR, no murmur, no gallops, no rubs Respiratory: normal chest expansion, no tachypnea, rhonchi Gastrointestinal: soft, non-tender, non-distended, normal bowel sounds Extremities: 1+ LE edema Skin: normal turgor, no lesions, no rashes Neurological: no focal deficits, no new deficit Musculoskeletal: normal tone, generalized weakness Hosp A/P - Plan IMPRESSION Acute hypoxic respiratory failure Acute on chronic systolic and diastolic heart failure Healthcare associated pneumonia Pulseless electrical activity arrest, with return to circulation Septic shock, improving Ischemic cardiomyopathy Coronary artery disease Moderate to severe mitral regurgitation End-stage renal disease on dialysis Hypertension Type 2 diabetes mellitus Hypercholesterolemia PLAN We will continue with cefepime and vancomycin, pending cultures Appreciate pulmonary, nephrology, and cardiology recommendations Dialysis as per nephrology Continue mechanical ventilation with sedation protocol as per pulmonary Continue sliding scale for blood sugar control between 140 and 180 Pending echocardiogram report DVT prophylaxis: Lovenox GI prophylaxis: PPI Disposition: Continue to treat respiratory failure/shock. Critical care time spent with patient greater than 40 minutes in planning and management of critical illness.
--- NOTE | 2019-11-10 09:01 | PRG ---
DATE OF SERVICE: 11/10/2019 SUBJECTIVE: Mr. Bauer is a 69-year-old male with ESRD, who was admitted for congestive heart failure. He underwent emergent hemodialysis yesterday. OBJECTIVE: VITAL SIGNS: Blood pressure is 135/61, heart rate 85, respiratory rate of 12, O2 saturation 99%. GENERAL: The patient is sedated, intubated on ventilator support. SKIN: Adequate turgor. HEENT: Slightly pale conjunctivae. Anicteric sclerae. No neck mass. No carotid bruits. No JVD. CHEST: No deformities. LUNGS: Decreased breath sounds. HEART: Normal sinus rhythm. No murmurs. No gallops. No rubs. ABDOMEN: Globular, soft, nontender. No masses. EXTREMITIES: No edema. No deformities. MEDICATIONS: Medications of November 10, 2019, were reviewed. LABORATORY DATA: November 10, 2019; white count 10.7, hemoglobin 8.7. Sodium 134, potassium 4.7, chloride 98, carbon dioxide 27, BUN 41, creatinine 6.45, calcium 8.7, and albumin 3.2. ASSESSMENT AND PLAN: 1. Anemia. We will start Epogen 7500 units subcu every week. 2. Acute respiratory failure-secondary to congestive heart failure. Hemodialysis was done yesterday. The plan is again to do another dialysis treatment in a.m. 3. End-stage renal disease, stable. We will continue current Saturday, Saturday, and Saturday hemodialysis regimen. Again, maxing out fluid removal as tolerated. Job ID: [id number]
[2019-11-10] MEDS: Acetaminophen 500 MG TAB PO PRN (09:25)
[2019-11-10] MEDS: HumaLOG 300 UNITS/3 ML VIAL SC PRN ×2 (09:26→12:32)
[2019-11-10] MEDS: Pantoprazole 40 MG VIAL IVP SCH (09:27)
--- NOTE | 2019-11-10 09:34 | RAD ---
PORTABLE CHEST: Date: 11/10/2019 HISTORY: Respiratory failure. CCU follow-up. COMPARISON: 11/09/2019. FINDINGS: There has been improvement in the bilateral alveolar infiltrates when compared to yesterday. Hazy inf iltrate remains in the right perihilar region and the left lower lung. ET tube and NG tube remain in place. IMPRESSION: Improvement in the bilateral infiltrates. POS: [facility]
[2019-11-10] MEDS: Cefepime 0.5 GM, Admixture Fee 1 EACH in Sodium Chloride 0.9% 100 ML IVPB SCH (09:41)
[2019-11-10] MEDS ORDERED: Nitroglycerin 0.4 MG TAB (25 Tab Bottle) SL PRN (12:17)
[2019-11-10] MEDS ORDERED: Morphine 2 MG/ML SYRINGE SLOW IVP PRN (12:18)
[2019-11-10] MEDS ORDERED: Morphine 4 MG/ML VIAL SLOW IVP PRN (12:18)
--- NOTE | 2019-11-10 16:29 | PRG ---
DATE OF SERVICE: 11/10/2019 SERVICE: Pulmonary Medicine. INTERVAL HISTORY: The patient is doing really well from respiratory standpoint. He is on a CPAP trial today. He cannot provide any additional elements of the history. He is under the influence of a little sedation. Otherwise, there has been no interval change to his condition. PHYSICAL EXAMINATION: VITAL SIGNS: Afebrile currently with a T-max of 100.3, pulse 97, blood pressure 155/66, respirations 30, and saturation 98%, currently on 21% FiO2 delivered via ventilator with a PEEP of 5. GENERAL: The patient is intubated and under the influence of some sedation. HEENT: Normocephalic and atraumatic. Sclerae white. Conjunctivae pink. Oral mucosa is moist without lesions. LUNGS: Good air entry bilaterally. No prolonged expiratory phase or wheezing is appreciated. Dependent crackles are much improved. HEART: Normal rate. Regular. ABDOMEN: Soft, nontender, and nondistended. Bowel sounds are positive. MUSCULOSKELETAL: No cyanosis or clubbing. Trace pitting is present in the bilateral lower extremities. LABORATORY DATA: Hemoglobin 8.7 and roughly stable, WBC 10.7 and returned to normal, and platelets 182,000. Basic metabolic profile is unremarkable except for an improving creatinine of 6.45. Liver function studies are unremarkable. Procalcitonin is quite elevated to 25. Blood cultures x2 are negative to date. IMAGING STUDIES: 1. Chest x-ray demonstrates bilateral infiltrates that had significantly improved overnight. There is a widened carinal angle. Endotracheal tube is 2 cm above the level of the anjelica. Enteric catheter courses midline below the level of the diaphragm. Cardiomegaly is noted on this AP film. 2. Echocardiogram demonstrates a reduced ejection fraction of 35% with E:A flow reversal, suggestive of diastolic dysfunction. ASSESSMENT: 1. Acute hypoxic respiratory failure, resolving. 2. [id number] systolic and diastolic heart failure, improving. 3. End-stage renal disease, on hemodialysis. 4. Healthcare-associated pneumonia, resolving. 5. Pulseless electrical activity arrest. 6. History of prostate cancer, in remission. 7. Septic shock, resolved. DISCUSSION AND PLAN: We will continue his HCAP empiric antibiotic coverage. I will put him on a spontaneous breathing trial. If he meets criteria, extubation will be considered. Once he is extubated, we will work on early mobilization. If he tolerates this well, he can be considered for transition to the floor today or tomorrow. Critical care time: 30 minutes. Job ID: [id number] MTDD
--- NOTE | 2019-11-10 17:00 | EKG ---
Test Reason : URGENT Blood Pressure : / mmHG Vent. Rate : 090 BPM Atrial Rate : 090 BPM P-R Int : 152 ms QRS Dur : 134 ms QT Int : 422 ms P-R-T Axes : 036 -13 110 degrees QTc Int : 516 ms Sinus rhythm with Premature atrial complexes Left bundle branch block Abnormal ECG When compared with ECG of 09-NOV-2019 05:21, (Unconfirmed) Previous ECG has undetermined rhythm, needs review ST less depressed in Lateral leads T wave inversion less evident in Anterolateral leads Confirmed by DR. Candace HUGHES ([id number]) on 11/10/2019 4:59:50 PM Referred By: JOHN Confirmed By:DR. Candace HUGHES
[2019-11-11 03:49] LABS: #Eosinphils 0.1 thou/uL (0.0-0.7); #Lymphocytes 1.5 thou/uL (1.20-3.40); #Monocytes 0.6 thou/uL (0.11-0.59); #Neutrophils 6.3 thou/uL (1.40-6.50); %Basophils 0.4 % (0.0-1.0); %Eosinophils 0.7 % (0.0-10.0); %Lymphocytes 18.1 % (21.0-51.0); %Monocytes 6.5 % (0.0-10.0); %Neutrophils 74.3 % (42.0-75.0); Hemoglobin 9.1 g/dL (14.0-18.0); Mean Corpuscular HGB CONC 35.8 g/dL (32.0-36.0); Mean Corpuscular Hemoglobin 37.1 pg (27.0-31.0); Mean Platelet Volume 8.2 fL (7.4-10.4); Platelet Count 170 thou/uL (130-400); RBC Distribution Width 12.5 % (11.5-14.5); Red Blood Cell (RBC) Count 2.44 mill/uL (4.70-6.10); White Blood Cell (WBC) Count 8.5 thou/uL (4.8-10.8)
[2019-11-11 04:09] LABS: Anion Gap 17 mmol/L (10-20); BUN (Urea Nitrogen) 33 mg/dL (8.4-25.7); Calc. Creatinine Clearance 14 mL/min (70-130); Calcium 9.2 mg/dL (7.8-10.44); Carbon Dioxide 25 mmol/L (23-31); Chloride 99 mmol/L (98-107); Estimated GFR-MDRD 11; Glucose 147 mg/dL (80-115); Potassium 4.3 mmol/L (3.5-5.1); Sodium 137 mmol/L (136-145)
--- NOTE | 2019-11-11 07:51 | RAD ---
EXAM: CHEST ONE VIEW HISTORY: Respiratory failure. COMPARISON: 11/10/2019. FINDINGS: Endotracheal tube and nasogastric tubes have been removed. Left subclavian central venous catheter re herb in place. Elevation right hemidiaphragm is again present. Parenchymal opacity seen in the right lung base which could be related to atelectasis versus pneumonia. Mild increased density medial left lung base is again present but improved. Cardiac silhouette is magnified by projection but probably mildly enlarged. No other interval change. IMPRESSION: 1. Parenchymal density right lung base which could be related to volume loss versus pneumonia. Follow -up to resolution is recommended. 2. Persistent mild increased density medial left lung base. 3. Cardiomegaly. 4. Interval removal of the endotracheal tube and nasogastric tubes
[2019-11-11] MEDS ORDERED: Communication Order-Pharmacy FS SCH (08:00)
[2019-11-11] MEDS: Pantoprazole 40 MG VIAL IVP SCH (08:38)
[2019-11-11] MEDS: Aspirin 81 mg Enteric Coated Tablet PO SCH (08:44)
[2019-11-11] MEDS: Carvedilol 3.125 MG TAB PO SCH ×3 (08:44→20:06)
--- NOTE | 2019-11-11 09:43 | PDOC.HOSPP ---
- Subjective Encounter Date: 11/11/19 Encounter Time: 09:42 Subjective: Extubated yesterday. Undergoing dialysis today. No overnight issues. Still complains of minor left sided chest pain, especially when taking deep breathe in. - Objective Vital Signs & Weight: Vital Signs (12 hours) Temp Pulse Resp Pulse Ox 11/11/19 08:11 98 11/11/19 08:10 97 23 H 98 11/11/19 07:00 98.1 F 11/11/19 04:00 98.6 F 11/11/19 02:06 96 11/11/19 01:09 101 H 22 H 100 11/11/19 00:00 98.5 F 11/10/19 21:57 102 H Weight Admit Weight 164 lb Weight 164 lb 7.437 oz Most Recent Monitor Data Heart Rate from ECG 98 NIBP 147/68 NIBP BP-Mean 94 Respiration from ECG 26 SpO2 98 I&O: 11/10/19 11/11/19 11/12/19 06:59 06:59 06:59 Intake Total 820 876.5 Output Total 680 95 0 Balance 140 781.5 0 Result Diagrams: 11/11/19 03:10 11/11/19 03:10 Additional Labs: Accuchecks 11/11/19 11/10/19 11/10/19 00:10 20:31 16:42 POC Glucose 164 H 145 H 165 H 11/10/19 12:34 POC Glucose 181 H Hospitalist ROS - Review of Systems All other systems reviewed; all pertinent +/- noted in HPI/Subj - Medication Medications: Active Medications Generic Name Dose Route Start Last Admin Trade Name Freq PRN Reason Stop Dose Admin Acetaminophen 1,000 mg 11/09/19 06:37 11/10/19 09:25 Tylenol PO 1,000 mg Q6H PRN Administration Mild Pain (1-3) Albuterol/Ipratropium 3 ml 11/10/19 19:00 11/11/19 08:10 Duoneb NEB 3 ml [id number] GATO Administration Aspirin 81 mg 11/11/19 09:00 11/11/19 08:44 Ecotrin PO 81 mg DAILY GATO Administration Carvedilol 3.125 mg 11/11/19 09:00 11/11/19 08:44 Coreg PO 3.125 mg TID GATO Administration Cefepime HCl 0.5 gm/ 100 mls @ 200 mls/hr 11/10/19 08:00 11/10/19 09:41 Miscellaneous Medication 1 IVPB 100 mls each/ Sodium Chloride 0800 GATO Administration Insulin Human Lispro 0 units 11/09/19 06:37 11/10/19 12:32 Humalog SC 2 units .MILD SLIDING SCALE PRN Administration Mild Correctional Scale Nitroglycerin 0.4 mg 11/10/19 12:17 11/10/19 12:31 Nitrostat SL 0.4 mg Q5MIN PRN Administration Chest Pain Pantoprazole Sodium 40 mg 11/10/19 09:00 11/11/19 08:38 Protonix IVP 40 mg DAILY GATO Administration Propofol 1,000 mg 11/09/19 06:38 11/10/19 02:50 Diprivan IV 12/09/19 06:38 1,000 mg INF PRN Administration TO ACHIEVE GOAL RASS Protocol Sodium Chloride 10 ml 11/09/19 09:00 11/11/19 08:38 Flush - Normal Saline IVF 10 ml Q12HR GATO Administration - Exam General Appearance: NAD, awake alert Eye: PERRL, anicteric sclera ENT: normocephalic atraumatic, no oropharyngeal lesions, moist mucosa Neck: supple, symmetric, no JVD, no thyromegaly, no lymphadenopathy, no carotid bruit Heart: RRR, no murmur, no gallops, no rubs, normal peripheral pulses Respiratory: CTAB, no wheezes, no rales, no ronchi, normal chest expansion, no tachypnea, normal percussion Gastrointestinal: soft, non-tender, non-distended, normal bowel sounds, no palpable masses, no hepatomegaly, no splenomegaly, no bruit Extremities: no cyanosis, no clubbing, no edema Skin: normal turgor, no lesions, no rashes Neurological: cranial nerve grossly intact, normal sensation to touch, no weakness, no focal deficits, no new deficit Musculoskeletal: normal tone, normal strength, no muscle wasting Psychiatric: normal affect, normal behavior, A&O x 3 Hosp A/P - Plan IMPRESSION Acute hypoxic respiratory failure, improving Acute on chronic systolic and diastolic heart failure, improving Healthcare associated pneumonia Pulseless electrical activity arrest, with return to circulation Septic shock, improving Ischemic cardiomyopathy, EF 35-40% Coronary artery disease Moderate to severe mitral regurgitation End-stage renal disease on dialysis Hypertension Type 2 diabetes mellitus Hypercholesterolemia PLAN We will continue with cefepime and vancomycin, pending cultures Appreciate pulmonary, nephrology, and cardiology recommendations Dialysis as per nephrology Continjue aspirin and carvedilol Continue sliding scale for blood sugar control between 140 and 180 Echo showing hypokinetic LV, EF 35-40%, cardiology to take pt for cath tomorrow DVT prophylaxis: Lovenox GI prophylaxis: PPI 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 Continue tx of HAP/sepsis.
--- NOTE | 2019-11-11 09:47 | PRG ---
DATE OF SERVICE: 11/11/2019 SUBJECTIVE: Mr. Bauer is a 69-year-old male with ESRD on maintenance hemodialysis, was initially admitted for acute respiratory failure from CHF. He was intubated. Yesterday, he was extubated. Due to the shortness of breath yesterday, he again received an extra hemodialysis. The patient is currently undergoing his regular dialysis this morning. Breathing is much better. OBJECTIVE: VITAL SIGNS: Blood pressure is noted at 147/68, heart rate is 97, respiratory rate 23, and pulse ox 98%. GENERAL: The patient is awake, alert, comfortable, not in distress. SKIN: Adequate turgor. HEENT: He has slightly pale conjunctivae. Anicteric sclerae. NECK: No neck mass. No carotid bruits. No JVD. CHEST: No deformities. LUNGS: Clear breath sounds. HEART: Normal sinus rhythm. No murmur. No gallops. No rubs. ABDOMEN: Globular, soft, nontender. No masses. EXTREMITIES: No edema. No deformities. MEDICATIONS: Medications of November 11, 2019, reviewed. LABORATORY DATA: Laboratories of November 11, 2019; white count 8.5, hemoglobin 9.1, hematocrit 25.3, platelet count 170,000. Sodium 137, potassium 4.3, chloride 99, carbon dioxide 25, BUN 33, creatinine 5.33, glucose 147, calcium 9.2. ASSESSMENT AND PLAN: 1. Congestive heart failure, clinically improved. The patient received extra hemodialysis last night due to the respiratory distress. His breathing is much improved today. He is currently undergoing hemodialysis. 2. End-stage renal disease. Continuing regular Saturday, Saturday, and Saturday dialysis regimen. We will try to max out fluid removal - attempting 3 L fluid removal. 3. Anemia. We will start weekly Epogen with this patient. Overall, agree with current management. 4. CAD - Cardiology evaluatng patient for possible ischemic CHF. Job ID: [id number] [facility]T HOSPITALNabeel
[2019-11-11] MEDS: Cefepime 0.5 GM, Admixture Fee 1 EACH in Sodium Chloride 0.9% 100 ML IVPB SCH ×2 (12:46→16:58)
[2019-11-11] MEDS: EPOETIN ALFA-EPBX (ESRD) 4,000 UNIT/ML VIAL SC SCH (13:01)
--- NOTE | 2019-11-11 17:16 | PRG ---
DATE OF SERVICE: 11/11/2019 SERVICE: Pulmonary Medicine. INTERVAL HISTORY: The patient is breathing very comfortably. He has been weaned down to room air. Denies any shortness of breath or chest discomfort. Otherwise, he is returning to his usual state of health and has no specific complaints. He is not coughing or bringing up any phlegm. PHYSICAL EXAMINATION: VITAL SIGNS: Afebrile currently with a T-max of 100.3, pulse 56, blood pressure 148/59, respirations 25, and saturation 100%, currently on room air. GENERAL: The patient is awake and alert, in no apparent distress. LUNGS: Wonderful air entry. No crackles are appreciated today. HEART: Normal rate. Regular. ABDOMEN: Soft, nontender, and nondistended. Bowel sounds are positive. MUSCULOSKELETAL: No cyanosis or clubbing. No pitting in the bilateral lower extremities. NEUROLOGIC: Grossly nonfocal. LABORATORY DATA: Hemoglobin 9.1. CBC is otherwise unremarkable. Creatinine 5.33 and downtrending. Basic metabolic profile is unremarkable. Blood cultures x2 are unremarkable. IMAGING DATA: Chest x-ray demonstrates right lower lobe infiltrate versus atelectasis, interval extubation, pulmonary vascular congestion seems to be improved. There is a left-sided subclavian central venous catheter terminates in good position. ASSESSMENT: 1. Acute hypoxic respiratory failure, resolving. 2. Mlgvh-[id number]-[id number] systolic and diastolic heart failure, resolving. 3. End-stage renal disease, on dialysis. 4. Healthcare-associated pneumonia, improving. 5. History of prostate cancer, in remission. 6. Septic shock, resolved. 7. Pulseless electrical activity arrest, possibly secondary to hyperkalemia, resolved. DISCUSSION AND PLAN: I will continue his antibiotic coverage. At this point, he can be transitioned to the floor. I would recommend repeating a chest x-ray in 4 to 6 weeks in the outpatient setting to make certain that infiltrate resolves. His antibiotic course can be limited to a 7-day course tomorrow morning. If no organism has been identified, we can deescalate to a p.o. regimen. At this point, he can be transitioned out of the ICU to the telemetry unit. He has no further requirements for inpatient Pulmonary or Critical Care opinion, and I will sign off. Please call with additional questions or concerns through time. Job ID: [id number]
[2019-11-11] MEDS: HumaLOG 300 UNITS/3 ML VIAL SC PRN ×2 (17:26→20:06)
[2019-11-12 03:43] LABS: #Basophils 0.1 thou/uL (0.0-0.2); #Eosinphils 0.2 thou/uL (0.0-0.7); #Lymphocytes 1.7 thou/uL (1.20-3.40); #Monocytes 0.7 thou/uL (0.11-0.59); %Basophils 0.6 % (0.0-1.0); %Eosinophils 2.6 % (0.0-10.0); %Lymphocytes 19.6 % (21.0-51.0); %Monocytes 8.4 % (0.0-10.0); %Neutrophils 68.8 % (42.0-75.0); Hemoglobin 9.1 g/dL (14.0-18.0); Mean Corpuscular HGB CONC 35.6 g/dL (32.0-36.0); Mean Corpuscular Hemoglobin 36.7 pg (27.0-31.0); Mean Platelet Volume 7.8 fL (7.4-10.4); Platelet Count 198 thou/uL (130-400); RBC Distribution Width 12.4 % (11.5-14.5); Red Blood Cell (RBC) Count 2.49 mill/uL (4.70-6.10); White Blood Cell (WBC) Count 8.7 thou/uL (4.8-10.8)
[2019-11-12 04:01] LABS: Anion Gap 17 mmol/L (10-20); BUN (Urea Nitrogen) 32 mg/dL (8.4-25.7); Calc. Creatinine Clearance 15 mL/min (70-130); Calcium 9.4 mg/dL (7.8-10.44); Carbon Dioxide 29 mmol/L (23-31); Chloride 95 mmol/L (98-107); Estimated GFR-MDRD 12; Glucose 150 mg/dL (80-115); Potassium 3.7 mmol/L (3.5-5.1); Sodium 137 mmol/L (136-145)
[2019-11-12] MEDS ORDERED: Heparin 10,000 UNITS/1 ML VIAL ONE (06:33)
[2019-11-12] MEDS ORDERED: Midazolam HCl 2 mg/2 ml Vial ONE (07:07)
[2019-11-12] MEDS ORDERED: Fentanyl 100 MCG/2 ML VIAL ONE (07:07)
[2019-11-12] MEDS ORDERED: Bivalirudin 250 MG VIAL ONE (07:38)
[2019-11-12] MEDS ORDERED: Clopidogrel Bisulfate 300 MG TAB ONE (07:54)
[2019-11-12] MEDS ORDERED: Nitroglycerin 100MG/250ML BOT 250 ML ONE (07:54)
[2019-11-12] MEDS ORDERED: Iopamidol 370 76% 100 ML VIAL ONE (09:45)
[2019-11-12] MEDS ORDERED: Iopamidol 370 76% 50 ML VIAL FS ONE (09:45)
--- NOTE | 2019-11-12 09:51 | PRG ---
DATE OF SERVICE: 11/12/2019 SUBJECTIVE: Mr. Bauer is a 69-year-old male with ESRD, followed up for his management of his ESRD and maintenance hemodialysis. He was admitted for pulmonary edema. He was seen by Cardiology and he underwent a cardiac cath. Three-vessel coronary artery disease was seen. He had also moderately impaired ventricular function. Successful PCI with a drug-eluting stent was placed. The patient has no new complaints. He denies any chest pain or shortness of breath. OBJECTIVE: VITAL SIGNS: Blood pressure 154/62, heart rate 90, respiratory rate 25, and O2 sat 99%. GENERAL: The patient is noted to be awake, alert, comfortable, not in distress. SKIN: Adequate turgor. HEENT: He has a slightly pale conjunctivae. Anicteric sclerae. NECK: No neck mass. No carotid bruits. No JVD. CHEST: No deformities. LUNGS: Clear breath sounds. HEART: Normal sinus rhythm. No murmur. No gallops. No rubs. ABDOMEN: Globular, soft, and nontender. No masses. EXTREMITIES: No edema. No deformities. MEDICATIONS: Medications of November 12, 2019, was reviewed. LABORATORY DATA: November 12, 2019; white count 8.7 and hemoglobin 9.1. Sodium 137, potassium 3.7, chloride 95, carbon dioxide 29, BUN 32, creatinine 4.81, glucose 150, and calcium 9.4. ASSESSMENT AND PLAN: 1. End-stage renal disease, stable. We will continue current hemodialysis regimen and fluid removal as tolerated. He did receive extra hemodialysis due to his CHF. 2. Hypertension, labile - start losartan 25 mg tab q.a.m. 3. Coronary artery disease/status post cardiac cath with coronary stent placement - stable. Cardiology is following. 4. Anemia. Continuing weekly Epogen with this patient. Overall, agree with current management. Job ID: [id number]
[2019-11-12] MEDS ORDERED: Carvedilol 6.25 MG TAB PO SCH (10:00)
[2019-11-12] MEDS ORDERED: Losartan 25 MG TAB PO SCH (10:00)
[2019-11-12] MEDS: Pantoprazole 40 MG VIAL IVP SCH (10:04)
[2019-11-12] MEDS: Aspirin 81 mg Enteric Coated Tablet PO SCH (10:04)
[2019-11-12] MEDS: HumaLOG 300 UNITS/3 ML VIAL SC PRN ×2 (10:13→16:36)
[2019-11-12] MEDS: Carvedilol 6.25 MG TAB PO SCH (16:28)
[2019-11-12] MEDS: Cefepime 0.5 GM, Admixture Fee 1 EACH in Sodium Chloride 0.9% 100 ML IVPB SCH (16:28)
--- NOTE | 2019-11-12 16:28 | PDOC.HOSPP ---
- Subjective Encounter Date: 11/12/19 Encounter Time: 09:20 Subjective: Underwent cath today with stent to LAD. Is currently lying flat. No complaints of chest pain. Feels weak overall. - Objective Vital Signs & Weight: Vital Signs (12 hours) Temp Pulse Resp BP Pulse Ox 11/12/19 13:41 86 22 H 99 11/12/19 12:00 99.1 F 11/12/19 11:05 99 11/12/19 10:05 185/61 H 11/12/19 08:40 98 F 11/12/19 08:00 94 L Weight Admit Weight 164 lb Weight 132 lb 4.438 oz Most Recent Monitor Data Heart Rate from ECG 86 NIBP 144/65 NIBP BP-Mean 91 Respiration from ECG 22 SpO2 96 I&O: 11/11/19 11/12/19 11/13/19 06:59 06:59 06:59 Intake Total 876.5 703 200 Output Total 95 0 0 Balance 781.5 703 200 Result Diagrams: 11/12/19 03:35 11/12/19 03:35 Additional Labs: Accuchecks 11/12/19 11/12/19 11/11/19 10:16 00:50 20:09 POC Glucose 226 H 144 H 237 H 11/11/19 16:29 POC Glucose 189 H Hospitalist ROS - Review of Systems All other systems reviewed; all pertinent +/- noted in HPI/Subj - Medication Medications: Active Medications Generic Name Dose Route Start Last Admin Trade Name Freq PRN Reason Stop Dose Admin Acetaminophen 1,000 mg 11/09/19 06:37 11/10/19 09:25 Tylenol PO 1,000 mg Q6H PRN Administration Mild Pain (1-3) Albuterol/Ipratropium 3 ml 11/10/19 19:00 11/12/19 13:41 Duoneb NEB 3 ml [id number] GATO Administration Aspirin 81 mg 11/11/19 09:00 11/12/19 10:04 Ecotrin PO 81 mg DAILY GATO Administration Epoetin Ryan-epbx 7,500 unit 11/11/19 09:30 11/11/19 13:01 Retacrit SC 7,500 unit Q7D GATO Administration Vancomycin HCl 1 gm/ Device 200 mls @ 200 mls/hr 11/09/19 08:15 11/11/19 11: 53 IVPB 200 mls WILLCALL GATO Administration Cefepime HCl 0.5 gm/ 100 mls @ 200 mls/hr 11/11/19 17:00 11/11/19 16:58 Miscellaneous Medication 1 IVPB 100 mls each/ Sodium Chloride 1700 GATO Administration Insulin Human Lispro 0 units 11/09/19 06:37 11/12/19 10:13 Humalog SC 3 units .MILD SLIDING SCALE PRN Administration Mild Correctional Scale Nitroglycerin 0.4 mg 11/10/19 12:17 11/10/19 12:31 Nitrostat SL 0.4 mg Q5MIN PRN Administration Chest Pain Pantoprazole Sodium 40 mg 11/10/19 09:00 11/12/19 10:04 Protonix IVP 40 mg DAILY GATO Administration Sodium Chloride 10 ml 11/09/19 09:00 11/12/19 10:05 Flush - Normal Saline IVF 10 ml Q12HR GATO Administration - Exam General Appearance: NAD, awake alert Eye: PERRL, anicteric sclera ENT: normocephalic atraumatic, no oropharyngeal lesions, moist mucosa Neck: supple, symmetric, no JVD, no thyromegaly, no lymphadenopathy, no carotid bruit Heart: RRR, no murmur, no gallops, no rubs, normal peripheral pulses Respiratory: CTAB, no wheezes, no rales, no ronchi, normal chest expansion, no tachypnea, normal percussion Gastrointestinal: soft, non-tender, non-distended, normal bowel sounds, no palpable masses, no hepatomegaly, no splenomegaly, no bruit Extremities: no cyanosis, no clubbing, no edema Skin: normal turgor, no lesions, no rashes Neurological: cranial nerve grossly intact, normal sensation to touch, no weakness, no focal deficits, no new deficit Musculoskeletal: normal tone, normal strength, no muscle wasting Psychiatric: normal affect, normal behavior, A&O x 3 Hosp A/P - Plan IMPRESSION Acute hypoxic respiratory failure, improving Status post cath with stenting to LAD Acute on chronic systolic and diastolic heart failure, improving Healthcare associated pneumonia, improving Pulseless electrical activity arrest, with return to circulation Septic shock, improving Ischemic cardiomyopathy, EF 35-40% Coronary artery disease Moderate to severe mitral regurgitation End-stage renal disease on dialysis Hypertension Type 2 diabetes mellitus Hypercholesterolemia PLAN We will continue with cefepime and vancomycin, pending cultures Appreciate pulmonary, nephrology, and cardiology recommendations Dialysis as per nephrology Continjue aspirin and carvedilol Continue sliding scale for blood sugar control between 140 and 180 Echo showing hypokinetic LV, EF 35-40%, cardiology to take pt for cath tomorrow DVT prophylaxis: Lovenox GI prophylaxis: PPI Disposition: Stent placed today. Transfer to tele. PT/OT and CM for dc planning. Continue tx of HAP/sepsis.
--- NOTE | 2019-11-12 16:55 | EKG ---
Test Reason : POST STENTS-LAD/A PX Blood Pressure : / mmHG Vent. Rate : 086 BPM Atrial Rate : 086 BPM P-R Int : 148 ms QRS Dur : 138 ms QT Int : 436 ms P-R-T Axes : 033 -29 110 degrees QTc Int : 521 ms Sinus rhythm with Premature atrial complexes Left bundle branch block Abnormal ECG When compared with ECG of 09-NOV-2019 16:10, No significant change was found Confirmed by DR. Candace HUGHES (3) on 11/12/2019 4:55:25 PM Referred By: KALYAN Confirmed By:DR. Candace HUGHES
[2019-11-13] MEDS: HumaLOG 300 UNITS/3 ML VIAL SC PRN ×3 (05:21→13:43)
[2019-11-13 06:14] LABS: #Basophils 0.1 thou/uL (0.0-0.2); #Eosinphils 0.4 thou/uL (0.0-0.7); #Lymphocytes 1.2 thou/uL (1.20-3.40); #Monocytes 0.5 thou/uL (0.11-0.59); #Neutrophils 4.5 thou/uL (1.40-6.50); %Basophils 1.2 % (0.0-1.0); %Eosinophils 5.8 % (0.0-10.0); %Lymphocytes 17.9 % (21.0-51.0); %Monocytes 7.9 % (0.0-10.0); %Neutrophils 67.3 % (42.0-75.0); Hemoglobin 8.2 g/dL (14.0-18.0); Mean Corpuscular HGB CONC 36.3 g/dL (32.0-36.0); Mean Corpuscular Hemoglobin 37.1 pg (27.0-31.0); Mean Platelet Volume 7.7 fL (7.4-10.4); Platelet Count 200 thou/uL (130-400); RBC Distribution Width 12.5 % (11.5-14.5); Red Blood Cell (RBC) Count 2.22 mill/uL (4.70-6.10); White Blood Cell (WBC) Count 6.7 thou/uL (4.8-10.8)
[2019-11-13 09:21] LABS: Vancomycin, Random 12.8 ug/mL (See Comment)
[2019-11-13] MEDS: Carvedilol 6.25 MG TAB PO SCH (09:40)
[2019-11-13] MEDS: Aspirin 81 mg Enteric Coated Tablet PO SCH (09:40)
[2019-11-13] MEDS: Clopidogrel Bisulfate 75 MG TAB PO SCH (09:40)
[2019-11-13] MEDS: Pantoprazole 40 MG VIAL IVP SCH (09:41)
[2019-11-13] MEDS: Losartan 25 MG TAB PO SCH (09:41)
[2019-11-13 14:30] LABS: Albumin 3.2 g/dL (3.4-4.8)
[2019-11-13 14:32] LABS: Chloride 90 mmol/L (98-107); Potassium 4.2 mmol/L (3.5-5.1); Sodium 131 mmol/L (136-145)
[2019-11-13 14:33] LABS: Globulin 3.1 g/dL (2.4-3.5); Glucose 149 mg/dL (80-115); Protein, Total 6.3 g/dL (5.8-8.1)
[2019-11-13 14:34] LABS: Anion Gap 21 mmol/L (10-20); Carbon Dioxide 24 mmol/L (23-31)
[2019-11-13 14:35] LABS: Bilirubin, Total 0.4 mg/dL (0.2-1.2)
[2019-11-13 14:36] LABS: Alkaline Phosphatase 73 U/L (40-110)
[2019-11-13 14:37] LABS: BUN (Urea Nitrogen) 58 mg/dL (8.4-25.7)
[2019-11-13 14:38] LABS: AST (SGOT) 18 U/L (5-34)
[2019-11-13 14:39] LABS: ALT (SGPT) 23 U/L (8-55)
[2019-11-13 14:42] LABS: Calc. Creatinine Clearance 7 mL/min (70-130); Estimated GFR-MDRD 7
--- NOTE | 2019-11-13 16:46 | EKG ---
Test Reason : Blood Pressure : / mmHG Vent. Rate : 083 BPM Atrial Rate : 083 BPM P-R Int : 146 ms QRS Dur : 142 ms QT Int : 430 ms P-R-T Axes : 042 -23 114 degrees QTc Int : 505 ms Normal sinus rhythm Left bundle branch block Abnormal ECG When compared with ECG of 12-NOV-2019 11:23, Premature atrial complexes are no longer Present Confirmed by DR. Candace HUGHES (3) on 11/13/2019 4:45:40 PM Referred By: KALYAN Confirmed By:DR. Candace HUGHES
--- NOTE | 2019-11-13 17:08 | PRG ---
DATE OF SERVICE: 11/13/2019 SUBJECTIVE: Mr. Bauer is a 69-year-old male with ESRD, currently undergoing hemodialysis. He was admitted for flash pulmonary edema. He underwent a cardiac cath and a coronary artery stent was placed. He is doing better. No new complaints today. OBJECTIVE: VITAL SIGNS: Blood pressure 122/59, heart rate 89, respiratory rate 21, O2 saturation 95%. GENERAL: The patient is awake, alert, comfortable, not in distress. SKIN: Adequate turgor. HEENT: He has pinkish conjunctivae. Anicteric sclerae. No neck mass. No carotid bruits. No JVD. CHEST: No deformities. LUNGS: Clear breath sounds. HEART: Normal sinus rhythm. No murmurs, no gallops, no rubs. ABDOMEN: Globular, soft, nontender. No masses. EXTREMITIES: No edema. No deformities. MEDICATIONS: Medications of November 13, 2019, were reviewed. LABORATORY DATA: Laboratories of November 13, 2019; white count 6.7, hemoglobin 8.2. Sodium 131, potassium 4.2, chloride 90, carbon dioxide 24, BUN 58, creatinine 8.11. LFTs normal. ASSESSMENT AND PLAN: 1. End-stage renal disease, stable, tolerating current hemodialysis regimen. Attempting to max out fluid removal as tolerated. 2. Congestive heart failure, much improved with dialysis. Continue supportive care. 3. Coronary artery disease, recently status post cardiac cath. The patient underwent a coronary artery stent placement. 4. Anemia, continuing weekly Epogen with this patient of 7500 units subcu every 7 days. Agree with current management. Job ID: [id number]
--- NOTE | 2019-11-13 19:01 | PDOC.HOSPP ---
- Subjective Encounter Date: 11/13/19 Encounter Time: 09:20 Subjective: Pt sees for followup re: acute hypoxic respiratory failure. Feels better today. - Objective Vital Signs & Weight: Vital Signs (12 hours) Pulse Pulse Pulse Resp BP BP BP 11/13/19 13:54 90 20 11/13/19 13:08 91 91 164/64 H 130/52 L 11/13/19 09:40 158/70 H 11/13/19 08:00 11/13/19 07:57 11/13/19 07:55 84 20 Pulse Ox Pulse Ox Pulse Ox 11/13/19 13:54 99 11/13/19 13:08 92 L 93 L 11/13/19 09:40 11/13/19 08:00 95 11/13/19 07:57 94 L 11/13/19 07:55 94 L Weight Admit Weight 164 lb Weight 132 lb 4.438 oz Most Recent Monitor Data Heart Rate from ECG 89 NIBP 122/59 NIBP BP-Mean 80 Respiration from ECG 21 SpO2 95 I&O: 11/12/19 11/13/19 11/14/19 06:59 06:59 06:59 Intake Total 703 728 306 Output Total 0 50 0 Balance 703 678 306 Result Diagrams: 11/13/19 05:10 11/13/19 08:52 Additional Labs: Accuchecks 11/13/19 11/13/19 11/13/19 13:45 10:27 05:21 POC Glucose 243 H 305 H 197 H 11/13/19 11/12/19 05:20 21:33 POC Glucose 226 H 231 H Labs and MARs reviewed by me EKG Reviewed by me: Yes (Tele; NSR) Hospitalist ROS - Review of Systems Respiratory: denies: cough, shortness of breath, SOB with excertion, pleuritic pain, wheezing Cardiovascular: denies: chest pain, palpitations, orthopnea, paroxysmal noc. dyspnea, edema, light headedness - Medication Medications: Active Medications Generic Name Dose Route Start Last Admin Trade Name Freq PRN Reason Stop Dose Admin Acetaminophen 1,000 mg 11/09/19 06:37 11/10/19 09:25 Tylenol PO 1,000 mg Q6H PRN Administration Mild Pain (1-3) Albuterol/Ipratropium 3 ml 11/10/19 19:00 11/13/19 13:54 Duoneb NEB 3 ml [id number] GATO Administration Aspirin 81 mg 11/11/19 09:00 11/13/19 09:40 Ecotrin PO 81 mg DAILY GATO Administration Clopidogrel Bisulfate 75 mg 11/13/19 09:00 11/13/19 09:40 Plavix PO 75 mg DAILY GATO Administration Epoetin Ryan-epbx 7,500 unit 11/11/19 09:30 11/11/19 13:01 Retacrit SC 7,500 unit Q7D GATO Administration Vancomycin HCl 1 gm/ Device 200 mls @ 200 mls/hr 11/09/19 08:15 11/11/19 11: 53 IVPB 200 mls WILLCALL GATO Administration Vancomycin HCl 750 mg/ Sodium 250 mls @ 250 mls/hr 11/09/19 08:15 11/13/19 17 :30 Chloride IVPB 250 mls WILLCALL GATO Administration Cefepime HCl 0.5 gm/ 100 mls @ 200 mls/hr 11/11/19 17:00 11/12/19 16:28 Miscellaneous Medication 1 IVPB 100 mls each/ Sodium Chloride 1700 GATO Administration Insulin Human Lispro 0 units 11/09/19 06:37 11/13/19 13:43 Humalog SC 3 units .MILD SLIDING SCALE PRN Administration Mild Correctional Scale Insulin Human Lispro 0 units 11/09/19 06:37 11/12/19 21:32 Humalog SC 2 unit .BEDTIME SLIDING SC PRN Administration Bedtime Correctional Scale Labetalol HCl 10 mg 11/09/19 19:55 11/13/19 05:20 Normodyne SLOW IVP 10 mg Q4H PRN Administration SBP GREATER THAN 160 Losartan Potassium 25 mg 11/13/19 09:00 11/13/19 09:41 Cozaar PO 25 mg DAILY GATO Administration Nitroglycerin 0.4 mg 11/10/19 12:17 11/10/19 12:31 Nitrostat SL 0.4 mg Q5MIN PRN Administration Chest Pain Pantoprazole Sodium 40 mg 11/10/19 09:00 11/13/19 09:41 Protonix IVP 40 mg DAILY GATO Administration Sodium Chloride 10 ml 11/09/19 09:00 11/13/19 09:54 Flush - Normal Saline IVF Not Given Q12HR GATO - Exam General Appearance: NAD Eye: anicteric sclera ENT: moist mucosa Neck: supple Heart: RRR Respiratory: normal chest expansion, rales Gastrointestinal: soft, non-tender Extremities: no cyanosis Skin: no lesions Musculoskeletal: normal tone Psychiatric: normal affect, normal behavior Hosp A/P - Plan - Assessment Acute hypoxic respiratory failure, improving CAD Acute on chronic systolic and diastolic heart failure, improving Healthcare associated pneumonia, improving Pulseless electrical activity arrest, with return to circulation Septic shock, resolved Ischemic cardiomyopathy, EF 35-40% Moderate to severe mitral regurgitation End-stage renal disease on dialysis Hypertension Type 2 diabetes mellitus Hypercholesterolemia - Plan Continue with cefepime and vancomycin Dialysis per nephrology Continjue aspirin and carvedilol Continue sliding scale for blood sugar control between 140 and 180 s/p cath with stent
[2019-11-13] MEDS: Carvedilol 25 MG TAB PO SCH (21:06)
[2019-11-13] MEDS: Cefepime 0.5 GM, Admixture Fee 1 EACH in Sodium Chloride 0.9% 100 ML IVPB SCH (21:07)
[2019-11-14] MEDS: HumaLOG 300 UNITS/3 ML VIAL SC PRN ×3 (05:54→17:35)
[2019-11-14] MEDS: Clopidogrel Bisulfate 75 MG TAB PO SCH (09:36)
[2019-11-14] MEDS: Carvedilol 25 MG TAB PO SCH ×2 (09:36→16:58)
[2019-11-14] MEDS: Aspirin 81 mg Enteric Coated Tablet PO SCH (09:37)
[2019-11-14] MEDS: Losartan 25 MG TAB PO SCH (09:37)
[2019-11-14] MEDS: Pantoprazole 40 MG VIAL IVP SCH (09:39)
--- NOTE | 2019-11-14 12:06 | PDOC.CPN ---
- Subjective Date: 11/14/19 Time: 12:13 Interval history: The pt seen and examined. No overnight events. No cardiac complaints. - Objective Allergies/Adverse Reactions: Allergies Allergy/AdvReac Type Severity Reaction Status Date / Time [email or web address] Allergy Verified 11/06/19 11:11 Visit Medications: Current Medications Acetaminophen (Tylenol) 1,000 mg PO Q6H PRN PRN Reason: Mild Pain (1-3) Last Admin: 11/10/19 09:25 Dose: 1,000 mg Acetaminophen (Tylenol) 650 mg GA Q4H PRN PRN Reason: Fever > 101 Albuterol/Ipratropium (Duoneb) 3 ml NEB [id number] [facility] Last Admin: 11/14/19 06:59 Dose: 3 ml Albuterol/Ipratropium (Duoneb) 3 ml NEB Q6H PRN PRN Reason: SOB &/or Wheezing Aspirin (Ecotrin) 81 mg PO DAILY [facility] Last Admin: 11/14/19 09:37 Dose: 81 mg Carvedilol (Coreg) 25 mg PO BID-WM [facility] Last Admin: 11/14/19 09:36 Dose: 25 mg Clopidogrel Bisulfate (Plavix) 75 mg PO DAILY [facility] Last Admin: 11/14/19 09:36 Dose: 75 mg Dextrose/Water (Dextrose 50%) 25 gm SLOW IVP PRN PRN PRN Reason: Hypoglycemia Epoetin Ryan-epbx (Retacrit) 7,500 unit SC Q7D [facility] Last Admin: 11/11/19 13:01 Dose: 7,500 unit Glucagon (Glucagon) 1 mg IM PRN PRN PRN Reason: Hypoglycemia Dextrose/Water (D5w) 1,000 mls @ 0 mls/hr IV .Q0M PRN PRN Reason: Hypoglycemia Vancomycin HCl 1.25 gm/ Sodium (Chloride) 250 mls @ 166.667 mls/hr IVPB WILLCALL [facility] Vancomycin HCl 1 gm/ Device 200 mls @ 200 mls/hr IVPB WILLCALL [facility] Last Admin: 11/11/19 11:53 Dose: 200 mls Vancomycin HCl 750 mg/ Sodium (Chloride) 250 mls @ 250 mls/hr IVPB WILLCALL [facility] Last Admin: 11/13/19 17:30 Dose: 250 mls Vancomycin HCl 500 mg/ Sodium (Chloride) 100 mls @ 100 mls/hr IVPB WILLCALL [facility] Sodium Chloride (Normal Saline 0.9%) 1,000 mls @ 0 mls/hr IV .Q0M [facility] Cefepime HCl 0.5 gm/Miscellaneous Medication 1 each/ Sodium Chloride 100 mls @ 200 mls/hr IVPB 1700 [facility] Last Admin: 11/13/19 21:07 Dose: 100 mls Insulin Human Lispro (Humalog) 0 units SC .MILD SLIDING SCALE PRN PRN Reason: Mild Correctional Scale Last Admin: 11/14/19 11:31 Dose: 6 units Insulin Human Lispro (Humalog) 0 units SC .BEDTIME SLIDING SC PRN PRN Reason: Bedtime Correctional Scale Last Admin: 11/12/19 21:32 Dose: 2 unit Labetalol HCl (Normodyne) 10 mg SLOW IVP Q4H PRN PRN Reason: SBP GREATER THAN 160 Last Admin: 11/13/19 05:20 Dose: 10 mg Losartan Potassium (Cozaar) 25 mg PO DAILY [facility] Last Admin: 11/14/19 09:37 Dose: 25 mg Miscellaneous Medication (Pharmacy To Dose) 1 each IVPB PRN PRN PRN Reason: Pharmacy to dose Morphine Sulfate (Morphine) 2 mg SLOW IVP Q2H PRN PRN Reason: MILD PAIN 1-3 Morphine Sulfate (Morphine) 4 mg SLOW IVP Q2H PRN PRN Reason: Moderate to Severe Pain (4-10) Nitroglycerin (Nitrostat) 0.4 mg SL Q5MIN PRN PRN Reason: Chest Pain Last Admin: 11/10/19 12:31 Dose: 0.4 mg Hold Vancomycin For (Level >20) 0 each FS .AT DIALYSIS [facility] Ondansetron HCl (Zofran Odt) 4 mg PO Q6H PRN PRN Reason: Nausea/Vomiting Ondansetron HCl (Zofran) 4 mg IVP Q6H PRN PRN Reason: Nausea/Vomiting Pantoprazole Sodium (Protonix) 40 mg IVP DAILY [facility] Last Admin: 11/14/19 09:39 Dose: 40 mg Sodium Chloride (Flush - Normal Saline) 10 ml IVF Q12HR [facility] Last Admin: 11/14/19 09:39 Dose: 10 ml Sodium Chloride (Flush - Normal Saline) 10 ml IVF PRN PRN PRN Reason: Saline Flush Vital Signs & Weight: Vital Signs Temp Pulse Pulse Pulse Resp BP BP 11/14/19 11:27 98.1 F 84 18 11/14/19 10:25 93 92 125/59 L 11/14/19 08:00 98.6 F 90 18 11/14/19 06:59 90 16 11/14/19 04:00 94 18 162/72 H 11/14/19 03:32 99.1 F 94 18 11/14/19 00:14 94 20 BP BP Pulse Ox Pulse Ox Pulse Ox 11/14/19 11:27 139/63 98 11/14/19 10:25 141/65 H 94 L 92 L 11/14/19 08:00 131/61 95 11/14/19 06:59 11/14/19 04:00 11/14/19 03:32 162/72 H 94 L 11/14/19 00:14 97 Admit Weight 164 lb Weight 150 lb 6.4 oz - Physical Exam General: alert & oriented x3 HEENT: mucus membranes moist Neck: supple neck Cardiac: regular rate and rhythm, S1/S2 Lungs: decreased breath sounds, bibasilar rales Neuro: cranial nerve 2-12 intact Extremities: no edema - Labs Result Diagrams: 11/13/19 05:10 11/13/19 08:52 Troponin/CKMB CK-MB (CK-2) 1.5 ng/mL (0-6.6) 11/09/19 05:26 Troponin I 0.597 ng/mL (< 0.028) H* 11/09/19 15:13 - Telemetry Sinus rhythms and dysrhythmias: sinus rhythm - Assessment/Plan Assessment/Plan: 1. Flash Pulm. edema with s/p intubation and CPR - 2. Acute on Chronic combined HF - on Coreg and Losartan; on HD 3. CAD with s/pt MAMTA in dis LAD on 11/12/2019 - On Coreg, Statin, Losartan, ASA , and Plavix 4. Ischemic CMY with EF 35-40% 5. ESRD 6. mod MR 7. HTN 8. DM type 2 9. HLD 10. Ex-smoker MAR reviewed * Dr Woods's pt Pt. seen and eval. by me. I agree with the A/P by the BUSINESS TRAINER. chest: decreased inspiratory effort. Decreased breath sounds. RRR. No edema. gjm
--- NOTE | 2019-11-14 12:14 | PDOC.HOSPP ---
- Subjective Encounter Date: 11/14/19 Encounter Time: 07:00 Subjective: Pt seen for followup re; acute hypoxic respiratory failure. c/o L chest pain. - Objective Vital Signs & Weight: Vital Signs (12 hours) Temp Pulse Pulse Pulse Resp BP BP 11/14/19 11:27 98.1 F 84 18 11/14/19 10:25 93 92 125/59 L 11/14/19 08:00 98.6 F 90 18 11/14/19 06:59 90 16 11/14/19 04:00 94 18 162/72 H 11/14/19 03:32 99.1 F 94 18 11/14/19 00:14 94 20 BP BP Pulse Ox Pulse Ox Pulse Ox 11/14/19 11:27 139/63 98 11/14/19 10:25 141/65 H 94 L 92 L 11/14/19 08:00 131/61 95 11/14/19 06:59 11/14/19 04:00 11/14/19 03:32 162/72 H 94 L 11/14/19 00:14 97 Weight Admit Weight 164 lb Weight 150 lb 6.4 oz Most Recent Monitor Data Heart Rate from ECG 89 NIBP 122/59 NIBP BP-Mean 80 Respiration from ECG 21 SpO2 95 I&O: 11/13/19 11/14/19 11/15/19 06:59 06:59 06:59 Intake Total 728 306 Output Total 50 0 Balance 678 306 Result Diagrams: 11/13/19 05:10 11/13/19 08:52 Additional Labs: Accuchecks 11/14/19 11/14/19 11/13/19 11:11 05:32 20:50 POC Glucose 351 H 307 H 157 H 11/13/19 13:45 POC Glucose 243 H Labs and MARs reviewed by me EKG Reviewed by me: Yes (Tele: NSR) Hospitalist ROS - Review of Systems Cardiovascular: reports: chest pain. denies: palpitations, orthopnea, paroxysmal noc. dyspnea, edema, light headedness Gastrointestinal: denies: nausea, vomiting, abdominal pain, diarrhea, constipation, melena, hematochezia - Medication Medications: Active Medications Generic Name Dose Route Start Last Admin Trade Name Freq PRN Reason Stop Dose Admin Acetaminophen 1,000 mg 11/09/19 06:37 02/25/20 09:25 Tylenol PO 1,000 mg Q6H PRN Administration Mild Pain (1-3) Albuterol/Ipratropium 3 ml 11/10/19 19:00 11/14/19 06:59 Duoneb NEB 3 ml [id number] GATO Administration Aspirin 81 mg 11/11/19 09:00 11/14/19 09:37 Ecotrin PO 81 mg DAILY GATO Administration Carvedilol 25 mg 11/13/19 17:00 11/14/19 09:36 Coreg PO 25 mg BID-WM GATO Administration Clopidogrel Bisulfate 75 mg 11/13/19 09:00 11/14/19 09:36 Plavix PO 75 mg DAILY GATO Administration Epoetin Ryan-epbx 7,500 unit 11/11/19 09:30 11/11/19 13:01 Retacrit SC 7,500 unit Q7D GATO Administration Vancomycin HCl 1 gm/ Device 200 mls @ 200 mls/hr 11/09/19 08:15 11/11/19 11: 53 IVPB 200 mls WILLCALL GATO Administration Vancomycin HCl 750 mg/ Sodium 250 mls @ 250 mls/hr 11/09/19 08:15 11/13/19 17 :30 Chloride IVPB 250 mls WILLCALL GATO Administration Cefepime HCl 0.5 gm/ 100 mls @ 200 mls/hr 11/11/19 17:00 11/13/19 21:07 Miscellaneous Medication 1 IVPB 100 mls each/ Sodium Chloride 1700 GATO Administration Insulin Human Lispro 0 units 11/09/19 06:37 11/14/19 11:31 Humalog SC 6 units .MILD SLIDING SCALE PRN Administration Mild Correctional Scale Insulin Human Lispro 0 units 11/09/19 06:37 11/12/19 21:32 Humalog SC 2 unit .BEDTIME SLIDING SC PRN Administration Bedtime Correctional Scale Labetalol HCl 10 mg 11/09/19 19:55 11/13/19 05:20 Normodyne SLOW IVP 10 mg Q4H PRN Administration SBP GREATER THAN 160 Losartan Potassium 25 mg 11/13/19 09:00 11/14/19 09:37 Cozaar PO 25 mg DAILY GATO Administration Nitroglycerin 0.4 mg 11/10/19 12:17 11/10/19 12:31 Nitrostat SL 0.4 mg Q5MIN PRN Administration Chest Pain Pantoprazole Sodium 40 mg 11/10/19 09:00 11/14/19 09:39 Protonix IVP 40 mg DAILY GATO Administration Sodium Chloride 10 ml 11/09/19 09:00 11/14/19 09:39 Flush - Normal Saline IVF 10 ml Q12HR GATO Administration - Exam General Appearance: awake alert Eye: anicteric sclera ENT: normocephalic atraumatic Neck: supple Heart: RRR Respiratory: CTAB Gastrointestinal: soft, non-tender Skin: no rashes Musculoskeletal - other findings: reproducible left chest wall tenderness Psychiatric: normal affect Hosp A/P - Plan - Assessment Acute hypoxic respiratory failure NSTEMI type 1 CAD Acute on chronic systolic and diastolic heart failure Healthcare associated pneumonia Pulseless electrical activity arrest, with return to circulation Septic shock, resolved Ischemic cardiomyopathy, EF 35-40% Moderate to severe mitral regurgitation End-stage renal disease on dialysis Hypertension Type 2 diabetes mellitus Hypercholesterolemia - Plan Continue cefepime and vancomycin Dialysis per nephrology Continjue aspirin and carvedilol Continue sliding scale s/p cath with stent to LAD Chect rib x-rays (h/o CPR)
--- NOTE | 2019-11-14 13:05 | PRG ---
DATE OF SERVICE: 11/14/2019 SUBJECTIVE: Mr. Bauer is a 69-year-old male with ESRD and was admitted for flash pulmonary edema. He underwent emergent hemodialysis for several days. His breathing is better. He also underwent cardiac cath due to the suspicion that the flash pulmonary edema may be ischemic in nature. Coronary stent placement was done. This morning, he is feeling better. He denies any chest pain or shortness of breath. OBJECTIVE: VITAL SIGNS: Blood pressure is noted at 139/63 with heart rate of 84, respiratory rate 18, temperature 98.1, and pulse ox 98%. GENERAL: The patient is noted to be awake, alert, and comfortable, not in overt distress. SKIN: Adequate turgor. HEENT: He has a slightly pale conjunctivae. Anicteric sclerae. NECK: No neck mass. No carotid bruits. No JVD. CHEST: No deformities. LUNGS: Clear breath sounds. No wheezing. No crackles. HEART: Normal sinus rhythm. No murmurs. No gallops. No rubs. ABDOMEN: Globular, soft, and nontender. No masses. EXTREMITIES: No edema. No deformities. MEDICATIONS: Medications of November 14, 2019, were reviewed. LABORATORY DATA: Laboratories of November 14, 2019, glucose 351. November 13, 2019; sodium 131, potassium 4.2, chloride 90, carbon dioxide 24, BUN 58, creatinine 8.11, and glucose 149. LFTs normal. Hemoglobin 8.2 and hematocrit 22.6. ASSESSMENT AND PLAN: 1. Flash pulmonary edema - ischemic in nature. Much improved. The patient is status post hemodialysis, status post cardiac cath with coronary stent placement. 2. Coronary artery disease - the patient is status post coronary stent placement. 3. Anemia. Continue weekly Epogen. Blood transfusion for hemoglobin less than 7. 4. Renal osteodystrophy. We will recheck phosphorus and PTH in a.m. Agree with current management. ADDENDUM: ESRD, no indication for any emergent hemodialysis today. We will continue Saturday, Saturday, and Saturday hemodialysis, tolerating said treatment. Job ID: [id number]
--- NOTE | 2019-11-14 13:06 | RAD ---
XR Ribs Lt>=2 View STANDARD History: Pain Comparison: Chest radiograph November 11, 2019 Findings: Central venous catheter is partially visualized and is intact. Possible incomplete fracture anterior left second rib fracture. No pneumothorax. Impression: Poorly evaluated possible incomplete left anterior second rib fracture.
[2019-11-14] MEDS: Cefepime 0.5 GM, Admixture Fee 1 EACH in Sodium Chloride 0.9% 100 ML IVPB SCH (16:59)
[2019-11-14] MEDS: Simvastatin 20 MG TAB PO SCH (22:22)
--- NOTE | 2019-11-15 07:33 | PDOC.HOSPP ---
- Subjective Encounter Date: 11/15/19 Encounter Time: 11:30 Subjective: Patient weak overall. No focal complaints. Very weak when work with PT. - Objective Vital Signs & Weight: Vital Signs (12 hours) Temp Pulse Resp BP Pulse Ox 11/15/19 07:06 90 14 11/15/19 06:58 98.6 F 86 18 152/67 H 94 L 11/15/19 03:23 98.7 F 88 18 156/68 H 93 L 11/15/19 00:25 85 16 96 11/14/19 22:00 96 Weight Admit Weight 164 lb Weight 154 lb 3.2 oz Most Recent Monitor Data Heart Rate from ECG 89 NIBP 122/59 NIBP BP-Mean 80 Respiration from ECG 21 SpO2 95 I&O: 11/14/19 11/15/19 11/16/19 06:59 06:59 06:59 Intake Total 306 400 Output Total 0 0 Balance 306 400 Result Diagrams: 11/13/19 05:10 11/13/19 08:52 Additional Labs: Accuchecks 11/15/19 11/14/19 11/14/19 06:15 20:47 17:15 POC Glucose 215 H 198 H 194 H 11/14/19 11:11 POC Glucose 351 H Hospitalist ROS - Review of Systems Constitutional: denies: fever, chills Respiratory: denies: cough, shortness of breath Cardiovascular: denies: chest pain, palpitations Gastrointestinal: denies: nausea, vomiting Neurological: reports: weakness - Medication Medications: Active Medications Generic Name Dose Route Start Last Admin Trade Name Freq PRN Reason Stop Dose Admin Acetaminophen 1,000 mg 11/09/19 06:37 11/10/19 09:25 Tylenol PO 1,000 mg Q6H PRN Administration Mild Pain (1-3) Albuterol/Ipratropium 3 ml 11/10/19 19:00 11/15/19 07:06 Duoneb NEB 3 ml [id number] GATO Administration Aspirin 81 mg 11/11/19 09:00 11/14/19 09:37 Ecotrin PO 81 mg DAILY GATO Administration Carvedilol 25 mg 11/13/19 17:00 11/14/19 16:58 Coreg PO 25 mg BID-WM GATO Administration Clopidogrel Bisulfate 75 mg 11/13/19 09:00 11/14/19 09:36 Plavix PO 75 mg DAILY GATO Administration Epoetin Ryan-epbx 7,500 unit 11/11/19 09:30 11/11/19 13:01 Retacrit SC 7,500 unit Q7D GATO Administration Vancomycin HCl 1 gm/ Device 200 mls @ 200 mls/hr 11/09/19 08:15 11/11/19 11: 53 IVPB 200 mls WILLCALL GATO Administration Vancomycin HCl 750 mg/ Sodium 250 mls @ 250 mls/hr 11/09/19 08:15 11/13/19 17 :30 Chloride IVPB 250 mls WILLCALL GATO Administration Cefepime HCl 0.5 gm/ 100 mls @ 200 mls/hr 11/11/19 17:00 11/14/19 16:59 Miscellaneous Medication 1 IVPB 100 mls each/ Sodium Chloride 1700 GATO Administration Insulin Human Lispro 0 units 11/09/19 06:37 11/14/19 17:35 Humalog SC 2 units .MILD SLIDING SCALE PRN Administration Mild Correctional Scale Insulin Human Lispro 0 units 11/09/19 06:37 11/12/19 21:32 Humalog SC 2 unit .BEDTIME SLIDING SC PRN Administration Bedtime Correctional Scale Labetalol HCl 10 mg 11/09/19 19:55 11/13/19 05:20 Normodyne SLOW IVP 10 mg Q4H PRN Administration SBP GREATER THAN 160 Losartan Potassium 25 mg 11/13/19 09:00 11/14/19 09:37 Cozaar PO 25 mg DAILY GATO Administration Nitroglycerin 0.4 mg 11/10/19 12:17 11/10/19 12:31 Nitrostat SL 0.4 mg Q5MIN PRN Administration Chest Pain Pantoprazole Sodium 40 mg 11/10/19 09:00 11/14/19 09:39 Protonix IVP 40 mg DAILY GATO Administration Simvastatin 20 mg 11/14/19 21:00 11/14/19 22:22 Zocor PO 20 mg HS GATO Administration Sodium Chloride 10 ml 11/09/19 09:00 11/14/19 22:22 Flush - Normal Saline IVF 10 ml Q12HR GATO Administration - Exam General Appearance: NAD, awake alert ENT: moist mucosa Heart: RRR, no murmur, no gallops, no rubs Respiratory: CTAB, no wheezes, no rales, no ronchi Gastrointestinal: soft, non-tender, non-distended, normal bowel sounds Psychiatric: normal affect, normal behavior, A&O x 3 Hosp A/P - Plan - Assessment Acute hypoxic respiratory failure NSTEMI type 1 CAD Acute on chronic systolic and diastolic heart failure Healthcare associated pneumonia Pulseless electrical activity arrest, with return to circulation Septic shock, resolved Ischemic cardiomyopathy, EF 35-40% Moderate to severe mitral regurgitation End-stage renal disease on dialysis Hypertension Type 2 diabetes mellitus Hypercholesterolemia - Plan Finish cefepime and vancomycin today (7 day course) Dialysis per nephrology Continjue aspirin and carvedilol Continue sliding scale s/p cath with stent to LAD Rehab screening
[2019-11-15] MEDS: Pantoprazole 40 MG VIAL IVP SCH (08:07)
[2019-11-15] MEDS: Losartan 25 MG TAB PO SCH (08:07)
[2019-11-15] MEDS: Clopidogrel Bisulfate 75 MG TAB PO SCH (08:07)
[2019-11-15] MEDS: Carvedilol 25 MG TAB PO SCH ×2 (08:07→16:19)
[2019-11-15] MEDS: HumaLOG 300 UNITS/3 ML VIAL SC PRN ×3 (08:08→17:06)
[2019-11-15] MEDS: Aspirin 81 mg Enteric Coated Tablet PO SCH (08:08)
--- NOTE | 2019-11-15 11:21 | PRG ---
DATE OF SERVICE: 11/15/2019 SUBJECTIVE: Mr. Bauer is a 69-year-old male with ESRD, was admitted for pulmonary edema. He underwent daily dialysis at that time. Consideration for ischemic/pulmonary edema was considered and for that reason, the patient underwent cardiac cath. A coronary stent was placed by his edge inker. This morning, he is feeling better, but; however, still with occasional shortness of breath. No chest pain associated with this. OBJECTIVE: VITAL SIGNS: Blood pressure 152/67, heart rate 86, respiratory rate 18, O2 saturation 94%, and temperature 98.6. GENERAL: Noted to be awake, alert, and comfortable, not in overt distress. SKIN: Adequate turgor. HEENT: Pale conjunctivae. Anicteric sclerae. NECK: No neck mass. No carotid bruits. No JVD. CHEST: No deformities. LUNGS: Decreased breath sounds. HEART: Normal sinus rhythm. No murmurs. No gallops. No rubs. ABDOMEN: Globular, soft, and nontender. No masses. EXTREMITIES: No edema. No deformities. LABORATORY DATA: Laboratories of November 15, 2019; glucose 215. November 13, 2019; potassium 4.2, BUN 58, and creatinine 8.11. November 13, 2019, hemoglobin 8.2. ASSESSMENT AND PLAN: 1. End-stage renal disease, stable. We will continue current Saturday, Saturday, and Saturday hemodialysis, max out fluid removal as tolerated by the patient. 2. Anemia. Continuing weekly Epogen. Adjust Epogen as needed. 3. Pulmonary edema, much improved. Again, as previously mentioned, we will be maxing out fluid removal with dialysis tomorrow. 4. Coronary artery disease - status post cardiac cath with coronary stent placement. 5. Recheck basic metabolic, CBC, intact PTH, and serum phosphorus in a.m. Job ID: [id number]
--- NOTE | 2019-11-15 14:30 | PDOC.CPN ---
- Subjective Date: 11/15/19 Time: 14:32 Interval history: The pt seen and examined. No overnight events. No cardiac complaints. - Objective Allergies/Adverse Reactions: Allergies Allergy/AdvReac Type Severity Reaction Status Date / Time [email or web address] Allergy Verified 11/06/19 11:11 Visit Medications: Current Medications Acetaminophen (Tylenol) 1,000 mg PO Q6H PRN PRN Reason: Mild Pain (1-3) Last Admin: 11/10/19 09:25 Dose: 1,000 mg Acetaminophen (Tylenol) 650 mg HI Q4H PRN PRN Reason: Fever > 101 Albuterol/Ipratropium (Duoneb) 3 ml NEB [id number] [facility] Last Admin: 11/15/19 13:01 Dose: 3 ml Albuterol/Ipratropium (Duoneb) 3 ml NEB Q6H PRN PRN Reason: SOB &/or Wheezing Aspirin (Ecotrin) 81 mg PO DAILY [facility] Last Admin: 11/15/19 08:08 Dose: 81 mg Carvedilol (Coreg) 25 mg PO BID-WM [facility] Last Admin: 11/15/19 08:07 Dose: 25 mg Clopidogrel Bisulfate (Plavix) 75 mg PO DAILY [facility] Last Admin: 11/15/19 08:07 Dose: 75 mg Dextrose/Water (Dextrose 50%) 25 gm SLOW IVP PRN PRN PRN Reason: Hypoglycemia Epoetin Ryan-epbx (Retacrit) 7,500 unit SC Q7D [facility] Last Admin: 11/11/19 13:01 Dose: 7,500 unit Glucagon (Glucagon) 1 mg IM PRN PRN PRN Reason: Hypoglycemia Dextrose/Water (D5w) 1,000 mls @ 0 mls/hr IV .Q0M PRN PRN Reason: Hypoglycemia Sodium Chloride (Normal Saline 0.9%) 1,000 mls @ 0 mls/hr IV .Q0M GATO Cefepime HCl 0.5 gm/Miscellaneous Medication 1 each/ Sodium Chloride 100 mls @ 200 mls/hr IVPB 1700 [facility] Stop: 11/15/19 23:59 Last Admin: 11/14/19 16:59 Dose: 100 mls Insulin Human Lispro (Humalog) 0 units SC .MILD SLIDING SCALE PRN PRN Reason: Mild Correctional Scale Last Admin: 11/15/19 11:44 Dose: 3 units Insulin Human Lispro (Humalog) 0 units SC .BEDTIME SLIDING SC PRN PRN Reason: Bedtime Correctional Scale Last Admin: 11/12/19 21:32 Dose: 2 unit Labetalol HCl (Normodyne) 10 mg SLOW IVP Q4H PRN PRN Reason: SBP GREATER THAN 160 Last Admin: 11/13/19 05:20 Dose: 10 mg Losartan Potassium (Cozaar) 25 mg PO DAILY [facility] Last Admin: 11/15/19 08:07 Dose: 25 mg Miscellaneous Medication (Pharmacy To Dose) 1 each IVPB PRN PRN PRN Reason: Pharmacy to dose Stop: 11/15/19 23:59 Morphine Sulfate (Morphine) 2 mg SLOW IVP Q2H PRN PRN Reason: MILD PAIN 1-3 Morphine Sulfate (Morphine) 4 mg SLOW IVP Q2H PRN PRN Reason: Moderate to Severe Pain (4-10) Nitroglycerin (Nitrostat) 0.4 mg SL Q5MIN PRN PRN Reason: Chest Pain Last Admin: 11/10/19 12:31 Dose: 0.4 mg Hold Vancomycin For (Level >20) 0 each FS .AT DIALYSIS [facility] Ondansetron HCl (Zofran Odt) 4 mg PO Q6H PRN PRN Reason: Nausea/Vomiting Ondansetron HCl (Zofran) 4 mg IVP Q6H PRN PRN Reason: Nausea/Vomiting Pantoprazole Sodium (Protonix) 40 mg IVP DAILY [facility] Last Admin: 11/15/19 08:07 Dose: 40 mg Simvastatin (Zocor) 20 mg PO HS [facility] Last Admin: 11/14/19 22:22 Dose: 20 mg Sodium Chloride (Flush - Normal Saline) 10 ml IVF Q12HR [facility] Last Admin: 11/15/19 08:15 Dose: 10 ml Sodium Chloride (Flush - Normal Saline) 10 ml IVF PRN PRN PRN Reason: Saline Flush Vital Signs & Weight: Vital Signs Temp Pulse Resp BP Pulse Ox 11/15/19 11:22 98.7 F 83 18 133/64 94 L 11/15/19 07:06 90 14 11/15/19 06:58 98.6 F 86 18 152/67 H 94 L 11/15/19 03:23 98.7 F 88 18 156/68 H 93 L Admit Weight 164 lb Weight 154 lb 3.2 oz - Physical Exam General: alert & oriented x3 HEENT: mucus membranes moist Neck: supple neck Cardiac: regular rate and rhythm, S1/S2 Lungs: clear to auscultation, decreased breath sounds Neuro: cranial nerve 2-12 intact Extremities: no edema - Labs Result Diagrams: 11/13/19 05:10 11/13/19 08:52 Troponin/CKMB CK-MB (CK-2) 1.5 ng/mL (0-6.6) 11/09/19 05:26 Troponin I 0.597 ng/mL (< 0.028) H* 11/09/19 15:13 - Telemetry Sinus rhythms and dysrhythmias: sinus rhythm - Assessment/Plan Assessment/Plan: 1. Flash Pulm. edema with s/p intubation and CPR - stable 2. Acute on Chronic combined HF - on Coreg and Losartan; on HD on MWF by Dr Peguero 3. CAD with s/pt MAMTA in dis LAD on 11/12/2019 - On Coreg, Statin, Losartan, ASA , and Plavix 4. Ischemic CMY with EF 35-40% 5. ESRD on MWF 6. mod MR 7. HTN - stable 8. DM type 2 9. HLD - on Statin 10. Ex-smoker - recommend cont. smoking cessation MAR reviewed * Dr Woods's pt
[2019-11-15] MEDS: Acetaminophen 500 MG TAB PO PRN (16:19)
[2019-11-15] MEDS: Cefepime 0.5 GM, Admixture Fee 1 EACH in Sodium Chloride 0.9% 100 ML IVPB SCH (17:06)
[2019-11-15] MEDS: Simvastatin 20 MG TAB PO SCH (19:31)
[2019-11-16 04:56] LABS: #Eosinphils 0.4 thou/uL (0.0-0.7); #Lymphocytes 1.5 thou/uL (1.20-3.40); #Monocytes 0.6 thou/uL (0.11-0.59); #Neutrophils 4.9 thou/uL (1.40-6.50); %Basophils 0.2 % (0.0-1.0); %Eosinophils 5.6 % (0.0-10.0); %Lymphocytes 19.7 % (21.0-51.0); %Monocytes 8.7 % (0.0-10.0); %Neutrophils 65.8 % (42.0-75.0); Anion Gap 19 mmol/L (10-20); BUN (Urea Nitrogen) 70 mg/dL (8.4-25.7); Calc. Creatinine Clearance 7 mL/min (70-130); Carbon Dioxide 26 mmol/L (23-31); Chloride 92 mmol/L (98-107); Estimated GFR-MDRD 5; Glucose 155 mg/dL (80-115); Hemoglobin 6.9 g/dL (14.0-18.0); Mean Corpuscular HGB CONC 36.6 g/dL (32.0-36.0); Mean Platelet Volume 7.7 fL (7.4-10.4); Platelet Count 212 thou/uL (130-400); RBC Distribution Width 13.4 % (11.5-14.5); Red Blood Cell (RBC) Count 1.86 mill/uL (4.70-6.10); Sodium 133 mmol/L (136-145); White Blood Cell (WBC) Count 7.4 thou/uL (4.8-10.8)
--- NOTE | 2019-11-16 08:54 | PRG ---
DATE OF SERVICE: 11/16/2019 SUBJECTIVE: Mr. Bauer is a 69-year-old male, who was admitted for congestive heart failure. He also underwent cardiac cath and a coronary stent was placed. He is currently undergoing hemodialysis and tolerating said treatment. He still complains of some shortness of breath and weakness. He was noted to have a hemoglobin of 6.9. OBJECTIVE: VITAL SIGNS: Blood pressure 167/74, heart rate 88, respiratory rate 20, temperature 98.6, and pulse ox 95%. GENERAL: Noted to be awake, alert, comfortable, not in distress. SKIN: Adequate turgor. HEENT: Pale conjunctivae. Anicteric sclerae. NECK: No neck mass. No carotid bruits. No JVD. CHEST: No deformities. LUNGS: Decreased breath sounds. HEART: Normal sinus rhythm. No murmurs. No gallops. No rubs. ABDOMEN: Globular, soft, and nontender. EXTREMITIES: No edema. No deformities. MEDICATIONS: Medications of November 16, 2019, were reviewed. LABORATORY DATA: Laboratories of November 16, 2019; white count 7.4, hemoglobin 6.9. Sodium 133, potassium 4, chloride 92, carbon dioxide 26, BUN 70, creatinine 9.59, glucose 155, and phosphorus is 8.0. PTH is 688. ASSESSMENT AND PLAN: 1. Anemia. We will transfuse 1 unit packed RBC. Continue weekly Epogen. 2. Hyperphosphatemia. Start phosphate binders if not yet started. 3. Secondary hyperparathyroidism. We will review if the patient is on calcitriol. If not, we will restart calcitriol at 0.25 mcg tablet daily. 4. End-stage renal disease, stable. We will continue current hemodialysis regimen. Maxing out fluid removal as tolerated by the patient. 5. Coronary artery disease, asymptomatic. Agree with current management. Job ID: [id number]
[2019-11-16] MEDS ORDERED: hydrALAZINE 25 MG TAB PO SCH (09:30)
[2019-11-16] MEDS: Sevelamer Carbonate 800 MG TAB PO SCH ×2 (12:37→17:49)
[2019-11-16] MEDS: Clopidogrel Bisulfate 75 MG TAB PO SCH (12:37)
[2019-11-16] MEDS: Aspirin 81 mg Enteric Coated Tablet PO SCH (12:37)
[2019-11-16] MEDS: Calcitriol 0.25 MCG CAP PO SCH (12:37)
[2019-11-16] MEDS: Pantoprazole 40 MG VIAL IVP SCH (12:39)
[2019-11-16] MEDS: Losartan 25 MG TAB PO SCH (12:48)
[2019-11-16] MEDS: Acetaminophen 500 MG TAB PO PRN ×2 (12:48→20:18)
[2019-11-16 15:23] VITALS: BMI 25.9
[2019-11-16] MEDS: Carvedilol 25 MG TAB PO SCH ×2 (17:49)
[2019-11-16] MEDS: HumaLOG 300 UNITS/3 ML VIAL SC PRN (17:50)
[2019-11-16] MEDS: Simvastatin 20 MG TAB PO SCH (20:18)
[2019-11-16] MEDS: hydrALAZINE 25 MG TAB PO SCH (20:18)
--- NOTE | 2019-11-16 22:09 | PDOC.HOSPP ---
- Subjective Encounter Date: 11/16/19 Subjective: Feels good. No complaints. - Objective Vital Signs & Weight: Vital Signs (12 hours) Temp Pulse Pulse Resp BP BP Pulse Ox 11/16/19 20:18 91 11/16/19 18:51 91 16 96 11/16/19 12:48 93 11/16/19 12:07 93 16 98 11/16/19 11:40 97.3 F L 88 20 162/69 H 95 11/16/19 10:36 98.8 F 89 18 160/77 H 11/16/19 10:15 97.8 F 90 18 162/78 H Weight Admit Weight 164 lb Weight 161 lb 6.4 oz Most Recent Monitor Data Heart Rate from ECG 89 NIBP 122/59 NIBP BP-Mean 80 Respiration from ECG 21 SpO2 95 I&O: 11/15/19 11/16/19 11/17/19 06:59 06:59 06:59 Intake Total 400 450 350 Output Total 0 Balance 400 450 350 Result Diagrams: 11/16/19 04:19 11/16/19 04:19 Additional Labs: Accuchecks 11/16/19 11/16/19 11/16/19 20:28 17:34 10:33 POC Glucose 222 H 366 H 146 H 11/16/19 05:58 POC Glucose 203 H Hospitalist ROS - Medication Medications: Active Medications Generic Name Dose Route Start Last Admin Trade Name Freq PRN Reason Stop Dose Admin Acetaminophen 1,000 mg 11/09/19 06:37 11/16/19 20:18 Tylenol PO 1,000 mg Q6H PRN Administration Mild Pain (1-3) Albuterol/Ipratropium 3 ml 11/10/19 19:00 11/16/19 18:51 Duoneb NEB 3 ml [id number] GATO Administration Aspirin 81 mg 11/11/19 09:00 11/16/19 12:37 Ecotrin PO 81 mg DAILY GATO Administration Calcitriol 0.25 mcg 11/16/19 09:00 11/16/19 12:37 Rocaltrol PO 0.25 mcg DAILY GATO Administration Carvedilol 25 mg 11/13/19 17:00 11/16/19 17:49 Coreg PO 25 mg BID-WM GATO Administration Clopidogrel Bisulfate 75 mg 11/13/19 09:00 11/16/19 12:37 Plavix PO 75 mg DAILY GATO Administration Epoetin Ryan-epbx 7,500 unit 11/11/19 09:30 11/11/19 13:01 Retacrit SC 7,500 unit Q7D GATO Administration Hydralazine HCl 50 mg 11/16/19 21:00 11/16/19 20:18 Apresoline PO 50 mg BID GATO Administration Insulin Human Lispro 0 units 11/09/19 06:37 11/16/19 17:50 Humalog SC 6 units .MILD SLIDING SCALE PRN Administration Mild Correctional Scale Insulin Human Lispro 0 units 11/09/19 06:37 11/12/19 21:32 Humalog SC 2 unit .BEDTIME SLIDING SC PRN Administration Bedtime Correctional Scale Labetalol HCl 10 mg 11/09/19 19:55 11/13/19 05:20 Normodyne SLOW IVP 10 mg Q4H PRN Administration SBP GREATER THAN 160 Nitroglycerin 0.4 mg 11/10/19 12:17 11/10/19 12:31 Nitrostat SL 0.4 mg Q5MIN PRN Administration Chest Pain Pantoprazole Sodium 40 mg 11/10/19 09:00 11/16/19 12:39 Protonix IVP 40 mg DAILY GATO Administration Sevelamer Carbonate 1,600 mg 11/16/19 12:00 11/16/19 17:49 Renvela PO 1,600 mg TID-WM GATO Administration Simvastatin 20 mg 11/14/19 21:00 11/16/19 20:18 Zocor PO 20 mg HS GATO Administration Sodium Chloride 10 ml 11/09/19 09:00 11/16/19 20:19 Flush - Normal Saline IVF 10 ml Q12HR GATO Administration - Exam General Appearance: NAD, awake alert Heart: RRR, no murmur, no gallops, no rubs, normal peripheral pulses Respiratory: CTAB, no wheezes, no rales, no ronchi, normal chest expansion, no tachypnea, normal percussion Gastrointestinal: soft, non-tender, non-distended, normal bowel sounds, no palpable masses, no hepatomegaly, no splenomegaly, no bruit Skin: normal turgor, no lesions, no rashes Musculoskeletal: normal tone, normal strength, no muscle wasting Psychiatric: normal affect, normal behavior, A&O x 3 Hosp A/P (1) Acute respiratory failure with hypoxia Code(s): J96.01 - ACUTE RESPIRATORY FAILURE WITH HYPOXIA Status: Acute (2) NSTEMI (non-ST elevated myocardial infarction) Code(s): I21.4 - NON-ST ELEVATION (NSTEMI) MYOCARDIAL INFARCTION Status: Acute (3) PEA (Pulseless electrical activity) Code(s): I46.9 - CARDIAC ARREST, CAUSE UNSPECIFIED Status: Acute (4) Septic shock Code(s): A41.9 - SEPSIS, UNSPECIFIED ORGANISM; R65.21 - SEVERE SEPSIS WITH SEPTIC SHOCK Status: Acute (5) Ischemic cardiomyopathy Code(s): I25.5 - ISCHEMIC CARDIOMYOPATHY Status: Acute (6) ESRD (end stage renal disease) Code(s): N18.6 - END STAGE RENAL DISEASE Status: Chronic (7) HTN (hypertension) Code(s): I10 - ESSENTIAL (PRIMARY) HYPERTENSION Status: Chronic Qualifiers: Hypertension type: renovascular hypertension Qualified Code(s): I15.0 - Renovascular hypertension (8) Diabetes mellitus Code(s): E11.9 - TYPE 2 DIABETES MELLITUS WITHOUT COMPLICATIONS Status: Acute - Plan Doing well. CM stable. Awaiting Live Vest. Anticipating rehab. Awaiting approval.
[2019-11-17 04:52] LABS: #Eosinphils 0.4 thou/uL (0.0-0.7); #Lymphocytes 1.5 thou/uL (1.20-3.40); #Monocytes 0.7 thou/uL (0.11-0.59); #Neutrophils 4.4 thou/uL (1.40-6.50); %Basophils 0.4 % (0.0-1.0); %Eosinophils 5.2 % (0.0-10.0); %Lymphocytes 20.8 % (21.0-51.0); %Monocytes 10.3 % (0.0-10.0); %Neutrophils 63.3 % (42.0-75.0); Hemoglobin 8.3 g/dL (14.0-18.0); Mean Corpuscular Hemoglobin 35.9 pg (27.0-31.0); Mean Corpuscular Volume 99.9 fL (78.0-98.0); Mean Platelet Volume 7.6 fL (7.4-10.4); Platelet Count 238 thou/uL (130-400)
[2019-11-17 05:08] LABS: Anion Gap 15 mmol/L (10-20); BUN (Urea Nitrogen) 30 mg/dL (8.4-25.7); Calc. Creatinine Clearance 12 mL/min (70-130); Calcium 8.6 mg/dL (7.8-10.44); Carbon Dioxide 30 mmol/L (23-31); Chloride 95 mmol/L (98-107); Estimated GFR-MDRD 10; Glucose 172 mg/dL (80-115); Potassium 3.8 mmol/L (3.5-5.1); Sodium 136 mmol/L (136-145)
[2019-11-17] MEDS: Sevelamer Carbonate 800 MG TAB PO SCH ×3 (08:14→17:48)
[2019-11-17] MEDS: Aspirin 81 mg Enteric Coated Tablet PO SCH (08:14)
[2019-11-17] MEDS: Carvedilol 25 MG TAB PO SCH ×2 (08:14→17:48)
[2019-11-17] MEDS: HumaLOG 300 UNITS/3 ML VIAL SC PRN ×3 (08:15→17:49)
[2019-11-17] MEDS: hydrALAZINE 25 MG TAB PO SCH ×3 (08:15→20:55)
[2019-11-17] MEDS: Clopidogrel Bisulfate 75 MG TAB PO SCH (08:15)
[2019-11-17] MEDS: Calcitriol 0.25 MCG CAP PO SCH (08:15)
[2019-11-17] MEDS: Acetaminophen 500 MG TAB PO PRN ×2 (08:15→18:27)
[2019-11-17] MEDS: Pantoprazole 40 MG VIAL IVP SCH (08:15)
[2019-11-17] MEDS ORDERED: hydrALAZINE 25 MG TAB PO SCH ×2 (08:45→09:00)
--- NOTE | 2019-11-17 09:06 | PRG ---
DATE OF SERVICE: 11/17/2019 SUBJECTIVE: Mr. Bauer is a 69-year-old male with ESRD and currently on maintenance hemodialysis. He was admitted for flash pulmonary edema. He underwent a cardiac cath with coronary artery stent placement. The patient is still feeling tired. The plan is to send him to rehab if he is accepted. He looks euvolemic today. OBJECTIVE: VITAL SIGNS: Blood pressure 174/74, heart rate 84, respiratory rate 16, temperature 98.2, and pulse ox 96%. GENERAL: Awake, alert, comfortable, sitting, not in distress. SKIN: Adequate turgor. HEENT: Slightly pale conjunctivae. Anicteric sclerae. No neck mass. No carotid bruits. No JVD. CHEST: No deformities. LUNGS: Clear breath sounds. HEART: Normal sinus rhythm. No murmur. No gallops. No rubs. ABDOMEN: Globular, soft, nontender. No masses. EXTREMITIES: No edema. No deformities. MEDICATIONS: Medications of November 17, 2019, reviewed. LABORATORY DATA: Laboratories of November 17, 2019; white count 7, hemoglobin 8.3. Sodium 136, potassium 2.8, chloride 95, carbon dioxide 30, BUN 30, creatinine 5.61, glucose 172, and calcium 8.6. ASSESSMENT AND PLAN: 1. Anemia - The patient received 1 unit of packed RBC yesterday. Continue weekly Epogen. 2. End-stage renal disease, stable, continuing current Saturday, Saturday, and Saturday hemodialysis regimen. No indication for any emergent dialysis today. 3. Coronary artery disease - The patient is status post cardiac cath with coronary artery stent placement. We are awaiting for possible rehab placement with this patient. Agree with current management. Job ID: [id number]
[2019-11-17] MEDS: Losartan 25 MG TAB PO SCH (09:17)
[2019-11-17] MEDS: Simvastatin 20 MG TAB PO SCH (20:44)
--- NOTE | 2019-11-17 21:39 | PDOC.HOSPP ---
- Subjective Encounter Date: 11/17/19 Subjective: Feels well. No complaints. - Objective Vital Signs & Weight: Vital Signs (12 hours) Temp Pulse Pulse Pulse Resp BP BP 11/17/19 20:55 88 193/79 H 11/17/19 19:33 88 20 11/17/19 15:26 97.9 F 77 18 11/17/19 14:30 79 79 165/73 H 11/17/19 11:46 98.0 F 78 18 BP BP BP Pulse Ox Pulse Ox Pulse Ox 11/17/19 20:55 11/17/19 19:33 94 L 11/17/19 15:26 142/65 H 98 11/17/19 14:30 145/65 H 98 98 11/17/19 11:46 161/74 H 95 Weight Admit Weight 164 lb Weight 155 lb 10.342 oz Most Recent Monitor Data Heart Rate from ECG 89 NIBP 122/59 NIBP BP-Mean 80 Respiration from ECG 21 SpO2 95 I&O: 11/16/19 11/17/19 11/18/19 06:59 06:59 06:59 Intake Total 450 350 Balance 450 350 Result Diagrams: 11/17/19 04:18 11/17/19 04:18 Additional Labs: Accuchecks 11/17/19 11/17/19 11/17/19 20:55 16:56 10:46 POC Glucose 213 H 299 H 208 H 11/17/19 05:33 POC Glucose 188 H Hospitalist ROS - Medication Medications: Active Medications Generic Name Dose Route Start Last Admin Trade Name Freq PRN Reason Stop Dose Admin Acetaminophen 1,000 mg 11/09/19 06:37 11/17/19 18:27 Tylenol PO 1,000 mg Q6H PRN Administration Mild Pain (1-3) Albuterol/Ipratropium 3 ml 11/10/19 19:00 11/17/19 19:33 Duoneb NEB 3 ml [id number] GATO Administration Aspirin 81 mg 11/11/19 09:00 11/17/19 08:14 Ecotrin PO 81 mg DAILY GATO Administration Calcitriol 0.25 mcg 11/16/19 09:00 11/17/19 08:15 Rocaltrol PO 0.25 mcg DAILY GATO Administration Carvedilol 25 mg 11/13/19 17:00 11/17/19 17:48 Coreg PO 25 mg BID-WM GATO Administration Clopidogrel Bisulfate 75 mg 11/13/19 09:00 11/17/19 08:15 Plavix PO 75 mg DAILY GATO Administration Epoetin Ryan-epbx 7,500 unit 11/11/19 09:30 11/11/19 13:01 Retacrit SC 7,500 unit Q7D GATO Administration Hydralazine HCl 100 mg 11/17/19 15:00 11/17/19 20:55 Apresoline PO 100 mg TID GATO Administration Insulin Human Lispro 0 units 11/09/19 06:37 11/17/19 17:49 Humalog SC 4 units .MILD SLIDING SCALE PRN Administration Mild Correctional Scale Insulin Human Lispro 0 units 11/09/19 06:37 11/12/19 21:32 Humalog SC 2 unit .BEDTIME SLIDING SC PRN Administration Bedtime Correctional Scale Labetalol HCl 10 mg 11/09/19 19:55 11/13/19 05:20 Normodyne SLOW IVP 10 mg Q4H PRN Administration SBP GREATER THAN 160 Losartan Potassium 100 mg 11/17/19 09:00 11/17/19 09:17 Cozaar PO 100 mg DAILY GATO Administration Nitroglycerin 0.4 mg 11/10/19 12:17 11/10/19 12:31 Nitrostat SL 0.4 mg Q5MIN PRN Administration Chest Pain Pantoprazole Sodium 40 mg 11/10/19 09:00 11/17/19 08:15 Protonix IVP 40 mg DAILY [facility]O Administration Sevelamer Carbonate 1,600 mg 11/16/19 12:00 11/17/19 17:48 Renvela PO 1,600 mg TID- GATO Administration Simvastatin 20 mg 11/14/19 21:00 11/17/19 20:44 Zocor PO 20 mg HS GATO Administration Sodium Chloride 10 ml 11/09/19 09:00 11/17/19 20:45 Flush - Normal Saline IVF 10 ml Q12HR GATO Administration - Exam General Appearance: NAD, awake alert Heart: RRR, no murmur, no gallops, no rubs, normal peripheral pulses Respiratory: CTAB, no wheezes, no rales, no ronchi, normal chest expansion, no tachypnea, normal percussion Gastrointestinal: soft, non-tender, non-distended, normal bowel sounds, no palpable masses, no hepatomegaly, no splenomegaly, no bruit Extremities: no cyanosis, no clubbing, no edema Skin: normal turgor Neurological: no focal deficits Musculoskeletal: normal tone Psychiatric: normal affect, normal behavior, A&O x 3 Hosp A/P (1) Acute respiratory failure with hypoxia Code(s): J96.01 - ACUTE RESPIRATORY FAILURE WITH HYPOXIA Status: Acute (2) NSTEMI (non-ST elevated myocardial infarction) Code(s): I21.4 - NON-ST ELEVATION (NSTEMI) MYOCARDIAL INFARCTION Status: Acute (3) PEA (Pulseless electrical activity) Code(s): I46.9 - CARDIAC ARREST, CAUSE UNSPECIFIED Status: Acute (4) Septic shock Code(s): A41.9 - SEPSIS, UNSPECIFIED ORGANISM; R65.21 - SEVERE SEPSIS WITH SEPTIC SHOCK Status: Acute (5) Ischemic cardiomyopathy Code(s): I25.5 - ISCHEMIC CARDIOMYOPATHY Status: Acute (6) ESRD (end stage renal disease) Code(s): N18.6 - END STAGE RENAL DISEASE Status: Chronic (7) HTN (hypertension) Code(s): I10 - ESSENTIAL (PRIMARY) HYPERTENSION Status: Chronic Qualifiers: Hypertension type: renovascular hypertension Qualified Code(s): I15.0 - Renovascular hypertension (8) Diabetes mellitus Code(s): E11.9 - TYPE 2 DIABETES MELLITUS WITHOUT COMPLICATIONS Status: Acute - Plan Doing well. CM stable. Awaiting Live Vest. Anticipating rehab. Awaiting approval. Life Vest will be placed once the rehab is approved. Continue DAPT, statin. Continue HD
--- NOTE | 2019-11-18 09:00 | PRG ---
DATE OF SERVICE: 11/18/2019 SUBJECTIVE: Mr. Bauer is a 69-year-old male with ESRD, admitted for congestive heart failure. He underwent cardiac cath with coronary stent placement. His breathing is much improved. However, he is feeling still a little tired. Recently, he was noted to be anemic, was given 1 unit of packed RBC. No new complaints today. OBJECTIVE: VITAL SIGNS: Blood pressure is 165/70, heart rate 86, respiratory rate 16, temperature 99.7, and pulse ox 97%. GENERAL: He is noted to be awake, alert, comfortable, not in distress. SKIN: Adequate turgor. HEENT: Slightly pale conjunctivae. Anicteric sclerae. NECK: No neck mass. No carotid bruits. No JVD. CHEST: No deformities. LUNGS: Decreased breath sounds. HEART: Normal sinus rhythm. No murmur. No gallops. No rubs. ABDOMEN: Globular, soft, and nontender. No masses. EXTREMITIES: No edema. MEDICATIONS: Medications of November 18, 2019, were reviewed. LABORATORY DATA: Laboratories of November 17, 2019; white count 7, hemoglobin 8.3. Sodium 136, potassium 3.8, chloride 95, carbon dioxide 30, BUN 30, creatinine 5.61, and glucose 172. Calcium 8.6. On November 18, 2019, glucose 187. ASSESSMENT AND PLAN: 1. End-stage renal disease - the patient currently undergoing hemodialysis and tolerating said treatment. Fluid removal as tolerated. 2. Anemia, status post blood transfusion. Continue weekly Epogen. P.r.n. blood transfusion for hemoglobin of less than 7. 3. Congestive heart failure, resolved. The patient is being evaluated for possible rehab. Job ID: [id number]
[2019-11-18] MEDS: Acetaminophen 500 MG TAB PO PRN (10:13)
[2019-11-18] MEDS: Aspirin 81 mg Enteric Coated Tablet PO SCH (11:59)
[2019-11-18] MEDS: Sevelamer Carbonate 800 MG TAB PO SCH ×3 (11:59→18:04)
[2019-11-18] MEDS: Calcitriol 0.25 MCG CAP PO SCH (11:59)
[2019-11-18] MEDS: Losartan 25 MG TAB PO SCH (12:00)
[2019-11-18] MEDS: hydrALAZINE 25 MG TAB PO SCH ×2 (12:00→16:00)
[2019-11-18] MEDS: Pantoprazole 40 MG VIAL IVP SCH (12:01)
[2019-11-18] MEDS: Clopidogrel Bisulfate 75 MG TAB PO SCH (12:01)
[2019-11-18] MEDS: Carvedilol 25 MG TAB PO SCH ×2 (12:01→18:04)
[2019-11-18] MEDS: HumaLOG 300 UNITS/3 ML VIAL SC PRN ×2 (12:02→18:05)
[2019-11-18] MEDS: EPOETIN ALFA-EPBX (ESRD) 4,000 UNIT/ML VIAL SC SCH (16:01)
[2019-11-18 16:40] VITALS: BP 139/65; TEMP 98.6
--- NOTE | 2019-11-19 11:57 | DIS ---
DATE OF ADMISSION: 11/09/2019 DATE OF DISCHARGE: 11/18/2019 DISCHARGE DIAGNOSES: 1. Pneumonia. 2. Septic shock. 3. Acute hypoxic respiratory failure. 4. Cardiac arrest with return of spontaneous circulation. 5. End-stage renal disease, on dialysis. 6. Severe lactic acidosis. 7. Diabetes mellitus. 8. Coronary artery disease. 9. Ischemic cardiomyopathy with an ejection fraction of 35% to 40%. 10. Drw-IA-[id number] myocardial infarction. HISTORY OF PRESENT ILLNESS: This patient is a 69-year-old male with end-stage renal disease, apparently had a prior abnormal stress test. The patient presented to the emergency department in respiratory distress. Subsequently became untended required intubation and pressor support. Imaging showed diffuse pulmonary edema/infiltrates. He was subsequently noted to have severe lactic acidosis and was diagnosed with septic shock. The patient had loss of pulse and had pulseless electrical activity during the intubation process and required CPR and ACLS resuscitation for approximately 5 minutes before regaining return of spontaneous circulation. HOSPITAL COURSE: The patient was admitted to the ICU on ventilator and pressors following pulseless electrical arrest. The patient over the subsequent days with IV fluids, antibiotics, and supportive measures did improve, was able to come off pressors and be extubated. He was seen by Cardiology, had an echocardiogram performed, which revealed an ejection fraction of 35% to 40%, with some suggestion of diastolic dysfunction. His troponins did continue to elevate to a maximum of 0.597. He did undergo a cardiac cath, which revealed coronary artery disease requiring a drug-eluting stent in the distal LAD. Once the patient was extubated and off pressors, he was able to transfer out of the ICU to the medical floor. He had continued to have dialysis under the care of Nephrology on regular basis. Given his overall weakness and debility as result of this episode, he was felt to be appropriate for rehab therapy. He was subsequently accepted into the inpatient rehab program. Once that acceptance was obtained, he had a LifeVest fitted and was discharged. PHYSICAL EXAMINATION: VITAL SIGNS: On the day of discharge, temperature was 98.6, pulse 87, respirations 18, O2 saturation 97% on room air, BP 139/65. GENERAL: He was awake and alert. HEART: Regular without murmurs. LUNGS: Clear bilaterally. ABDOMEN: Benign. DISPOSITION: The patient is discharged to inpatient rehab. He is to have a renal diabetic diet. ACTIVITY: As tolerated. MEDICATIONS: 1. Nitrostat p.r.n. 2. Aspirin 81 mg daily. 3. Rocaltrol 0.25 mcg daily. 4. Carvedilol 25 mg b.i.d. 5. Plavix 75 mg daily. 6. Retacrit 7500 units q.week. 7. Hydralazine 100 mg t.i.d. 8. DuoNebs q.6 hours p.r.n. 9. Losartan 100 mg daily. 10. Renvela 1600 mg t.i.d. 11. Simvastatin 20 mg at bedtime. 12. Ferrous sulphate 650 mg t.i.d. ACTIVITY: As tolerated. He will have OT and PT. He will follow up with Dr. Nasra Ferrell at [facility]. He will also follow up with Dr. Luis Gutierrez after discharge. He should also have followup with Dr. Woods in 2 to [address] Peguero in 2 to 3 weeks. He can return to the hospital at anytime he has the need to do so. TIME SPENT: Total time in discharge activities is greater than 30 minutes. Job ID: [id number]
--- NOTE | 2019-11-21 12:21 | EKG ---
Test Reason : SOB Blood Pressure : / mmHG Vent. Rate : 153 BPM Atrial Rate : 153 BPM P-R Int : 000 ms QRS Dur : 150 ms QT Int : 318 ms P-R-T Axes : 000 -01 143 degrees QTc Int : 507 ms Undetermined rhythm Left bundle branch block Abnormal ECG Confirmed by BANDAR JHAVERI ([id number]), book editor NANCY HARRIS ([id number]) on 11/21/2019 12:21:47 PM Referred By: Confirmed By:BANDAR JHAVERI
== END 2019-11-18 20:30 | DRG 853 ==
LOC: ERS 05:07 → CCU 06:43 → 2NO 11-13 19:16
PROVIDERS: ADMIT Family Medicine; ATTEND Internal Medicine
PROC: 3E043XZ Introduction of Vasopressor into Central Vein, Percutaneous Approach (ICD-10-PCS; 2019-11-09)
PROC: 5A12012 Performance of Cardiac Output, Single, Manual (ICD-10-PCS; 2019-11-09)
PROC: 0BH17EZ Insertion of Endotracheal Airway into Trachea, Via Natural or Artificial Opening (ICD-10-PCS; 2019-11-09)
PROC: 5A1945Z Respiratory Ventilation, 24-96 Consecutive Hours (ICD-10-PCS; 2019-11-09)
PROC: 0DH67UZ Insertion of Feeding Device into Stomach, Via Natural or Artificial Opening (ICD-10-PCS; 2019-11-09)
PROC: 05H633Z Insertion of Infusion Device into Left Subclavian Vein, Percutaneous Approach (ICD-10-PCS; 2019-11-09)
PROC: 4A023N7 Measurement of Cardiac Sampling and Pressure, Left Heart, Percutaneous Approach (ICD-10-PCS; principal; 2019-11-12)
PROC: 027035Z Dilation of Coronary Artery, One Artery with Two Drug-eluting Intraluminal Devices, Percutaneous Approach (ICD-10-PCS; 2019-11-12)
PROC: B2111ZZ Fluoroscopy of Multiple Coronary Arteries using Low Osmolar Contrast (ICD-10-PCS; 2019-11-12)
PROC: B2151ZZ Fluoroscopy of Left Heart using Low Osmolar Contrast (ICD-10-PCS; 2019-11-12)
PROC: 5A1D70Z Performance of Urinary Filtration, Intermittent, Less than 6 Hours Per Day (ICD-10-PCS; 2019-11-12)
DX: A41.9 Sepsis, unspecified organism (principal); N18.6 End stage renal disease; R65.21 Severe sepsis with septic shock; J96.01 Acute respiratory failure with hypoxia; I50.43 Acute on chronic combined systolic (congestive) and diastolic (congestive) heart failure; J18.9 Pneumonia, unspecified organism; I21.4 Non-ST elevation (NSTEMI) myocardial infarction; I46.8 Cardiac arrest due to other underlying condition; I13.2 Hypertensive heart and chronic kidney disease with heart failure and with stage 5 chronic kidney disease, or end stage renal disease; E87.2 Acidosis; N25.81 Secondary hyperparathyroidism of renal origin; G93.40 Encephalopathy, unspecified; E11.22 Type 2 diabetes mellitus with diabetic chronic kidney disease; D63.1 Anemia in chronic kidney disease; C61 Malignant neoplasm of prostate; E78.00 Pure hypercholesterolemia, unspecified; E87.5 Hyperkalemia; I25.5 Ischemic cardiomyopathy; E78.5 Hyperlipidemia, unspecified; I34.0 Nonrheumatic mitral (valve) insufficiency; N25.0 Renal osteodystrophy; I44.7 Left bundle-branch block, unspecified; I25.10 Atherosclerotic heart disease of native coronary artery without angina pectoris; Z82.49 Family history of ischemic heart disease and other diseases of the circulatory system; Z83.3 Family history of diabetes mellitus; Z90.49 Acquired absence of other specified parts of digestive tract; Z99.2 Dependence on renal dialysis; Z95.5 Presence of coronary angioplasty implant and graft; Z87.891 Personal history of nicotine dependence; Z88.8 Allergy status to other drugs, medicaments and biological substances; Z71.6 Tobacco abuse counseling
CPT/HCPCS: 31500; 36415; 36416; 36430; 36556; 71045; 80048; 80053; 80061; 80202; 82330; 82533; 82553; 82803; 82805; 83605; 83735; 83880; 83970; 84100; 84145; 84484; 85025; 86850; 86900; 86901; 87040; 90935; 92928; 92950; 93005; 93010; 93306; 93458; 93798; 94002; 94003; 94640; 94660; 96365; 96375; 96376; 99152; 99153; C1725; C1769; C1874; C1887; C9113; C9600; G0257; J0171; J0282; J0461; J0583; J0692; J1644; J2250; J2704; J3010; J3370; J3490; J7050; J7620; P9016; Q5105; Q9967; S0028

== ENCOUNTER 2020-07-26 09:31 | Outpatient (CLI) | payer MEDICARE ==
--- NOTE | 2020-07-26 15:08 | NM ---
WHOLE BODY BONE SCAN: 07/26/20 HISTORY: Malignant neoplasm of prostate. RADIOPHARMACEUTICAL: 32.5 millicuries technetium 99m-MDP injected intravenously. COMPARISON: 11/27/16. FINDINGS: Increased uptake in the sternoclavicular joints, shoulders, elbows, wrists, knees, ankles, feet and h ips are again seen. No other abnormal areas of tracer localization is seen in the skeleton to suggest osseous metastatic disease. Faint visualization of the kidneys and a small amount of activity in the urinary bladder are again noted. IMPRESSION: No evidence of osseous metastatic disease. POS: AH
== END 2020-07-26 09:32 | disposition home or self-care (01) ==
LOC: NM 09:31
PROVIDERS: ATTEND Internal Medicine Medical Oncology
DX: C61 Malignant neoplasm of prostate (principal); R97.20 Elevated prostate specific antigen [PSA]
CPT/HCPCS: 78306; A9503

== ENCOUNTER 2021-01-18 04:59 | Emergency (ER) | payer MEDICARE ==
[2021-01-18] MEDS ORDERED: HYDROcodone/Acetaminophen 5/325 mg Tablet ONE (05:34)
[2021-01-18 06:03] LABS: #Basophils 0.1 thou/uL (0.0-0.2); #Eosinphils 0.2 thou/uL (0.0-0.7); #Lymphocytes 1.4 thou/uL (1.20-3.40); #Monocytes 0.3 thou/uL (0.11-0.59); #Neutrophils 3.4 thou/uL (1.40-6.50); %Basophils 1.2 % (0.0-1.0); %Eosinophils 3.7 % (0.0-10.0); %Lymphocytes 26.4 % (21.0-51.0); %Monocytes 5.9 % (0.0-10.0); %Neutrophils 62.8 % (42.0-75.0); Hemoglobin 13.9 g/dL (14.0-18.0); Mean Corpuscular HGB CONC 32.8 g/dL (32.0-36.0); Mean Corpuscular Hemoglobin 34.5 pg (27.0-31.0); Mean Platelet Volume 7.7 fL (7.4-10.4); Platelet Count 182 thou/uL (130-400); RBC Distribution Width 14.5 % (11.5-14.5); Red Blood Cell (RBC) Count 4.04 mill/uL (4.70-6.10); White Blood Cell (WBC) Count 5.3 thou/uL (4.8-10.8)
[2021-01-18 06:22] LABS: ALT (SGPT) 26 U/L (8-55); AST (SGOT) 22 U/L (5-34); Albumin 4.4 g/dL (3.4-4.8); Alkaline Phosphatase 164 U/L (40-110); Anion Gap 21 mmol/L (10-20); BUN (Urea Nitrogen) 70 mg/dL (8.4-25.7); Bilirubin, Total 0.9 mg/dL (0.2-1.2); Calc. Creatinine Clearance 0 mL/min (70-130); Calcium 9.6 mg/dL (7.8-10.44); Carbon Dioxide 24 mmol/L (23-31); Chloride 95 mmol/L (98-107); Globulin 3.5 g/dL (2.4-3.5); Glucose 195 mg/dL (83-110); Potassium 4.6 mmol/L (3.5-5.1); Protein, Total 7.9 g/dL (5.8-8.1); Sodium 135 mmol/L (136-145)
== END 2021-01-18 06:57 | disposition home or self-care (01) ==
LOC: ERS 04:59
DX: S09.90XA Unspecified injury of head, initial encounter (principal); M79.632 Pain in left forearm; M79.631 Pain in right forearm; M25.562 Pain in left knee; M25.561 Pain in right knee; I13.2 Hypertensive heart and chronic kidney disease with heart failure and with stage 5 chronic kidney disease, or end stage renal disease; I50.9 Heart failure, unspecified; E11.22 Type 2 diabetes mellitus with diabetic chronic kidney disease; N18.6 End stage renal disease; W17.89XA Other fall from one level to another, initial encounter
CPT/HCPCS: 36415; 70450; 71045; 80053; 85025; 93005

== ENCOUNTER 2022-03-19 23:54 | Inpatient (IN) | payer MEDICARE ==
[2022-03-19] MEDS ORDERED: EPINEPHrine 1 MG/10 ML Abboject SYRINGE ONE (23:59)
[2022-03-20] MEDS ORDERED: EPINEPHrine 1 MG/10 ML Abboject SYRINGE ONE ×2 (00:01→00:02)
[2022-03-20] MEDS ORDERED: Atropine Sulfate 1 mg/10 ml Syringe ONE (00:01)
[2022-03-20] MEDS ORDERED: Sodium Bicarb 50 MEQ/50 ML Abboject 8.4% SYRINGE ONE ×2 (00:01→00:09)
[2022-03-20] MEDS ORDERED: DOPamine 400 MG/D5W 250 ML 250 ML ONE (00:29)
[2022-03-20 00:30] LABS: Actual Bicarbonate (HCO3a) 16.3 mEq/L (22-28); Analyzer IN Cardio ER; Base Excess (BEa) -14.8 mEq/L (-2.0 to +3.0); Calcium, Ionized (arterial) 1.43 mmol/L (1.12-1.30); Carboxyhemoglobin (COHb) 0.3 gm% (0.0-3.0); Hemoglobin (Hb) 11.8 g/dL (14.0-18.0); O2 Tension (PaO2), arterial 102.8 mmHg (> 70.0); Potassium - ABG Lab 4.74 mmol/L (3.70-5.30)
[2022-03-20 00:32] LABS: Actual Bicarbonate (HCO3a) 16.3 mEq/L (22-28); Analyzer IN Cardio ER; Base Excess (BEa) -12.5 mEq/L (-2.0 to +3.0); CO2 Tension 49.9 mmHg (35.0-45.0); Calcium, Ionized (arterial) 1.25 mmol/L (1.12-1.30); Carboxyhemoglobin (COHb) 0.3 gm% (0.0-3.0); Hemoglobin (Hb) 10.8 g/dL (14.0-18.0); Potassium - ABG Lab 5.18 mmol/L (3.70-5.30)
[2022-03-20] MEDS ORDERED: Piperacillin/Tazobactam 3.375 GM VIAL ONE (00:34)
[2022-03-20 00:38] LABS: Hemoglobin 10.7 g/dL (14.0-18.0); Mean Corpuscular Hemoglobin 35.9 pg (27.0-31.0); Mean Platelet Volume 8.3 fL (7.4-10.4); Platelet Count 129 thou/uL (130-400); RBC Distribution Width 13.6 % (11.5-14.5); Red Blood Cell (RBC) Count 2.99 mill/uL (4.70-6.10)
[2022-03-20 00:45] LABS: ALT (SGPT) 149 U/L (8-55); AST (SGOT) 162 U/L (5-34); Albumin 2.7 g/dL (3.4-4.8); Alkaline Phosphatase 114 U/L (40-110); Anion Gap 31 mmol/L (10-20); BUN (Urea Nitrogen) 42 mg/dL (8.4-25.7); Bilirubin, Total 0.6 mg/dL (0.2-1.2); Calc. Creatinine Clearance 0 mL/min (70-130); Calcium 10.1 mg/dL (7.8-10.44); Carbon Dioxide 16 mmol/L (23-31); Chloride 101 mmol/L (98-107); Estimated GFR 8; Globulin 2.7 g/dL (2.4-3.5); Glucose 413 mg/dL (83-110); Potassium 5.1 mmol/L (3.5-5.1); Protein, Total 5.4 g/dL (5.8-8.1); Sodium 143 mmol/L (136-145)
[2022-03-20 00:46] LABS: INR-International Normal Ratio 1.9; PTT 59.2 sec (22.9-36.1); Prothrombin Time 21.9 sec (12.0-14.7)
[2022-03-20 01:08] LABS: CKMB 2.4 ng/mL (0-6.6)
[2022-03-20 01:23] LABS: CO2 Tension 64.3 mmHg (35.0-45.0); Puncture Site RBA; pH, Arterial 7.02 (7.35-7.45)
[2022-03-20 01:24] LABS: ALV-art Gradient 529.825 mmHg (0-20)
[2022-03-20 01:26] LABS: Puncture Site RBA; pH, Arterial 7.13 (7.35-7.45)
[2022-03-20 01:28] LABS: ALV-art Gradient 559.625 mmHg (0-20)
[2022-03-20 01:37] LABS: #Eosinphils 0.2 thou/uL (0.0-0.7); #Monocytes 0.1 thou/uL (0.11-0.59); #Neutrophils 4.7 thou/uL (1.40-6.50); %Basophils 0.1 % (0.0-1.0); %Eosinophils 1.9 % (0.0-10.0); %Lymphocytes 49.9 % (21.0-51.0); %Monocytes 1.1 % (0.0-10.0); %Neutrophils 47.1 % (42.0-75.0); MDiff Complete? YES; Macrocytosis SLIGHT = 6-15 cells (100X) (0-5/hpf)
[2022-03-20 01:47] LABS: SARS-CoV-2 NAA Rapid Test Not Detected (NotDetected)
[2022-03-20 03:42] VITALS: BMI 23.3
[2022-03-20] MEDS ORDERED: Ondansetron PF 4 MG/2 ML Vial IVP PRN (03:43)
[2022-03-20] MEDS ORDERED: Vancomycin 1 GM in Premix Bag 1 BAG IVPB SCH (03:45)
[2022-03-20] MEDS ORDERED: Ventilator Sedation Protocol 1 EACH FS SCH (03:45)
[2022-03-20] MEDS ORDERED: HumaLOG 300 UNITS/3 ML VIAL SC PRN (03:50)
[2022-03-20] MEDS ORDERED: Propofol BOLUS 1,000 MG/100 ML VIAL IV PRN (04:00)
[2022-03-20] MEDS ORDERED: EPINEPHrine 4 MG in Dextrose 5% in Water 250 ML IVPB SCH (04:00)
[2022-03-20] MEDS ORDERED: Fentanyl CADD 100 ML IV SCH (04:00)
[2022-03-20] MEDS ORDERED: Propofol 1,000 MG/100 ML VIAL IV PRN (04:00)
[2022-03-20] MEDS ORDERED: Furosemide 100 MG/10 ML VIAL SLOW IVP SCH (04:00)
[2022-03-20] MEDS ORDERED: Morphine 4 MG/ML VIAL SLOW IVP PRN (04:00)
[2022-03-20] MEDS ORDERED: DISCONTINUE PREVIOUS NARCOTIC PAIN MEDICATIONS AND BENZODIAZEPINES FS SCH (04:00)
[2022-03-20] MEDS ORDERED: Lorazepam 2 MG/ML VIAL SLOW IVP PRN (04:00)
[2022-03-20] MEDS ORDERED: Sodium Bicarbonate 150 MEQ in Dextrose 5% in Water 1,000 ML IV SCH (04:00)
[2022-03-20] MEDS ORDERED: Fentanyl BOLUS 250 ML IVPB PRN (04:00)
[2022-03-20] MEDS ORDERED: Vancomycin Hemodialysis Sliding Scale FS SCH (04:15)
[2022-03-20 04:18] LABS: Troponin I 0.477 ng/mL (< 0.028)
[2022-03-20] MEDS ORDERED: VANCOMYCIN 1.25 GM/250 ML BAG 1.25 GM in Premix Bag 1 BAG IVPB SCH (04:30)
[2022-03-20] MEDS ORDERED: Cefepime 1 GM in Sodium Chloride 0.9% 100 ML IVPB SCH (05:00)
[2022-03-20 05:03] LABS: Hemoglobin 11.3 g/dL (14.0-18.0); Mean Corpuscular HGB CONC 32.3 g/dL (32.0-36.0); Mean Corpuscular Hemoglobin 35.1 pg (27.0-31.0); Mean Platelet Volume 7.5 fL (7.4-10.4); Platelet Count 182 thou/uL (130-400); RBC Distribution Width 13.5 % (11.5-14.5); Red Blood Cell (RBC) Count 3.22 mill/uL (4.70-6.10); White Blood Cell (WBC) Count 8.4 thou/uL (4.8-10.8)
[2022-03-20 05:18] LABS: Lactic Acid 7.2 mmol/L (0.5-2.2)
[2022-03-20 05:23] LABS: ALT (SGPT) 174 U/L (8-55); AST (SGOT) 234 U/L (5-34); Albumin 2.7 g/dL (3.4-4.8); Alkaline Phosphatase 105 U/L (40-110); Anion Gap 17 mmol/L (10-20); BUN (Urea Nitrogen) 48 mg/dL (8.4-25.7); Bilirubin, Total 1.2 mg/dL (0.2-1.2); Calc. Creatinine Clearance 8 mL/min (70-130); Calcium 8.5 mg/dL (7.8-10.44); Carbon Dioxide 33 mmol/L (23-31); Chloride 97 mmol/L (98-107); Estimated GFR 8; Globulin 2.5 g/dL (2.4-3.5); Glucose 537 mg/dL (83-110); Potassium 3.8 mmol/L (3.5-5.1); Protein, Total 5.2 g/dL (5.8-8.1); Sodium 143 mmol/L (136-145)
[2022-03-20 05:47] LABS: #Lymphocytes 1.2 thou/uL (1.20-3.40); #Monocytes 0.3 thou/uL (0.11-0.59); %Basophils 0.2 % (0.0-1.0); %Eosinophils 0.4 % (0.0-10.0); %Lymphocytes 13.7 % (21.0-51.0); %Monocytes 3.4 % (0.0-10.0); %Neutrophils 82.4 % (42.0-75.0)
[2022-03-20 05:48] LABS: Anisocytosis SLIGHT = 6-15 cells (100X) (0-5/hpf); MDiff Complete? YES
[2022-03-20 07:07] LABS: Actual Bicarbonate (HCO3a) 28.7 mEq/L (22-28); Base Excess (BEa) 4.9 mEq/L (-2.0 to +3.0); CO2 Tension 39.2 mmHg (35.0-45.0); Calcium, Ionized (arterial) 1.14 mmol/L (1.12-1.30); Carboxyhemoglobin (COHb) 0.2 gm% (0.0-3.0); Hemoglobin (Hb) 13.9 g/dL (14.0-18.0); O2 Tension (PaO2), arterial 153.5 mmHg (> 70.0); Potassium - ABG Lab 3.69 mmol/L (3.70-5.30); pH, Arterial 7.48 (7.35-7.45)
[2022-03-20 07:08] LABS: Troponin I 2.684 ng/mL (< 0.028)
[2022-03-20 07:28] LABS: Puncture Site LRA
[2022-03-20 07:47] VITALS: TEMP 98
[2022-03-20] MEDS ORDERED: ISOVUE-370 76%-LOCM 1 ML ONE (08:00)
[2022-03-20] MEDS ORDERED: Heparin 5,000 UNITS/ML VIAL SC SCH (09:00)
[2022-03-20] MEDS ORDERED: Famotidine/PF 20 mg/2ml Vial SLOW IVP SCH (09:00)
[2022-03-20] MEDS ORDERED: Aspirin 300 MG Suppository PR SCH (09:00)
[2022-03-20 10:32] VITALS: BP 56/51
[2022-03-20] MEDS ORDERED: Cefepime 0.5 GM, Admixture Fee 1 EACH in Sodium Chloride 0.9% 100 ML IVPB SCH (16:00)
== END 2022-03-20 15:13 | disposition expired | DRG 308 ==
LOC: ERS 23:54 → CCU 03-20 02:07
PROVIDERS: ADMIT Internal Medicine; ATTEND Internal Medicine
PROC: 5A1935Z Respiratory Ventilation, Less than 24 Consecutive Hours (ICD-10-PCS; principal; 2022-03-20)
PROC: 0DH67UZ Insertion of Feeding Device into Stomach, Via Natural or Artificial Opening (ICD-10-PCS; 2022-03-20)
PROC: 3E0G76Z Introduction of Nutritional Substance into Upper GI, Via Natural or Artificial Opening (ICD-10-PCS; 2022-03-20)
PROC: 06HY33Z Insertion of Infusion Device into Lower Vein, Percutaneous Approach (ICD-10-PCS; 2022-03-20)
PROC: 3E043XZ Introduction of Vasopressor into Central Vein, Percutaneous Approach (ICD-10-PCS; 2022-03-20)
DX: I44.1 Atrioventricular block, second degree (principal); J69.0 Pneumonitis due to inhalation of food and vomit; N18.6 End stage renal disease; J96.00 Acute respiratory failure, unspecified whether with hypoxia or hypercapnia; J90 Pleural effusion, not elsewhere classified; I50.32 Chronic diastolic (congestive) heart failure; I13.2 Hypertensive heart and chronic kidney disease with heart failure and with stage 5 chronic kidney disease, or end stage renal disease; E87.2 Acidosis; G93.1 Anoxic brain damage, not elsewhere classified; I49.5 Sick sinus syndrome; Z20.822 Contact with and (suspected) exposure to COVID-19; E11.22 Type 2 diabetes mellitus with diabetic chronic kidney disease; I46.2 Cardiac arrest due to underlying cardiac condition; I25.10 Atherosclerotic heart disease of native coronary artery without angina pectoris; E78.5 Hyperlipidemia, unspecified; E87.5 Hyperkalemia; D63.1 Anemia in chronic kidney disease; N52.9 Male erectile dysfunction, unspecified; Z99.2 Dependence on renal dialysis; Z88.8 Allergy status to other drugs, medicaments and biological substances; Z79.82 Long term (current) use of aspirin; Z79.02 Long term (current) use of antithrombotics/antiplatelets; Z79.899 Other long term (current) drug therapy; Z95.5 Presence of coronary angioplasty implant and graft; Z85.46 Personal history of malignant neoplasm of prostate; Z90.49 Acquired absence of other specified parts of digestive tract; Z90.89 Acquired absence of other organs; Z82.49 Family history of ischemic heart disease and other diseases of the circulatory system; Z90.79 Acquired absence of other genital organ(s); Z78.1 Physical restraint status; I25.2 Old myocardial infarction; Z95.828 Presence of other vascular implants and grafts
CPT/HCPCS: 36600; 70450; 71045; 71275; 78610; 80053; 82553; 82805; 83605; 83880; 84443; 84484; 85025; 85610; 85730; 87040; 87149; 93005; 93010; 93306; 94002; 94640; A9521; J0171; J0461; J0692; J1265; J1644; J1815; J1940; J2543; J3370; J3490; J7620; Q9966; S0028; U0002